=== PATIENT | female | born 1995 | race African-American/Black ===

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

== ENCOUNTER 2017-09-02 12:12 | Emergency (ER) | payer OTHER ==
[2017-09-02 13:04] LABS: BASOPHILS # (AUTO) 0.1 10^3/uL (0.0-0.1); BASOPHILS % (AUTO) 0.5 %; EOSINOPHILS # (AUTO) 0.2 10^3/uL (0.0-0.7); EOSINOPHILS % (AUTO) 1.5 %; HGB - HEMOGLOBIN 11.4 g/dL (12.0-16.0); LYMPHOCYTES # (AUTO) 2.4 10^3/uL (1.5-3.5); LYMPHOCYTES % (AUTO) 17.8 %; MEAN CORPUSCULAR HGB CONC 32.2 g/dL (32.0-36.0); MEAN CORPUSCULAR VOLUME 74.6 fL (81.0-99.0); MEAN PLATELET VOLUME 7.7 fL (7.9-10.8); MONOCYTES # (AUTO) 0.8 10^3/uL (0.0-1.0); MONOCYTES % (AUTO) 6.4 %; NEUTROPHILS # (AUTO) 9.8 10^3/uL (1.5-6.6); NEUTROPHILS % (AUTO) 73.8 %; PLT - PLATELET COUNT 230 10^3/uL (130-450); RED BLOOD COUNT 4.75 10^6/uL (4.20-5.40); RED CELL DISTRIBUTION WIDTH 14.8 % (12.0-15.0); WHITE BLOOD COUNT 13.2 x10^3/uL (4.8-10.8)
[2017-09-02 13:04] LABS: BILIRUBIN,URINE NEGATIVE (NEGATIVE); GLUCOSE, URINE (UA) NEGATIVE (NEGATIVE); KETONES,URINE (UA) NEGATIVE (NEGATIVE); LEUKOCYTE ESTERASE, URINE NEGATIVE (NEGATIVE); NITRITE,URINE NEGATIVE (NEGATIVE); OCCULT BLOOD,URINE NEGATIVE (NEGATIVE); PH,URINE 6.5 PH (5.0-7.5); PROTEIN,URINE NEGATIVE (NEGATIVE); UROBILINOGEN,URINE 0.2 (NORMAL) E.U./dL (NORMAL)
[2017-09-02 13:05] LABS: CLARITY,URINE CLEAR (CLEAR)
[2017-09-02 13:19] LABS: ALBUMIN 3.9 g/dL (3.2-5.5); ALBUMIN/GLOBULIN RATIO 1.2 (1.0-2.2); BILIRUBIN,TOTAL 0.4 mg/dL (0.2-1.0); CALCIUM 9.1 mg/dL (8.5-10.3); CREATININE 0.6 mg/dL (0.4-1.0); TOTAL PROTEIN 7.1 g/dL (6.7-8.2)
--- NOTE | 2017-09-02 13:53 | ED Physician Documentation ---
PD HPI FEMALE - Stated complaint Stated Complaint: ABD CRAMPING,10 WKS PREG - Chief complaint Chief Complaint: Abd Pain - History obtained from History obtained from: Patient - History of Present Illness Timing - onset: How many weeks ago (4) Timing - duration: Weeks (4) Timing - details: Gradual onset, Still present Associated symptoms: Pelvic pain. 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 She equates it to menstrual cramping and she knows that she is maybe as far long as 10 weeks . She has not had an ultrasound with this . She has not had any vaginal bleeding associated with this. She denies urinary symptoms. Review of Systems Constitutional: denies: Fever Eyes: denies: Decreased vision Ears: denies: Ear pain Nose: denies: Congestion Throat: denies: Sore throat Cardiac: denies: Chest pain / pressure, Palpitations Respiratory: denies: Dyspnea, Cough GI: reports: Abdominal Pain, Nausea. denies: Vomiting, Constipation, Diarrhea : denies: Dysuria, Frequency Skin: denies: Rash Musculoskeletal: denies: Neck pain, Back pain, Extremity pain Neurologic: denies: Generalized weakness, Focal weakness, Numbness PD PAST MEDICAL HISTORY - Past Medical History Cardiovascular: None Respiratory: None Neuro: None Endocrine/Autoimmune: None GI: None : None HEENT: None Psych: None Musculoskeletal: None Derm: None - Past Surgical History Past Surgical History: Yes General: Appendectomy - Present Medications Home Medications: Ambulatory Orders Medication Instructions Recorded Confirmed No Known Home Medications [No 12/29/16 12/29/16 Known Home Medications] - Allergies Allergies/Adverse Reactions: Allergies Allergy/AdvReac Type Severity Reaction Status Date / Time acetaminophen Allergy Unknown Anaphylaxis Verified 12/30/16 11:09 - Social History Does the pt smoke?: No Smoking Status: Former smoker Does the pt drink ETOH?: No Does the pt have substance abuse?: No - Immunizations Immunizations are current?: Yes PD ED PE NORMAL - Vitals Vital signs reviewed: Yes (Tachycardic and hypertensive) - General General: Alert and oriented X 3, No acute distress, Well developed/nourished - HEENT HEENT: Atraumatic, PERRL, EOMI - Respiratory Respiratory: No respiratory distress - Abdomen Abdomen: Soft, Non tender - Derm Derm: Normal color, Warm and dry, No rash - Extremities Extremities: No deformity, No edema - Neuro Neuro: No motor deficit, No sensory deficit Eye Opening: Spontaneous Motor: Obeys Commands Verbal: Oriented GCS Score: 15 - Psych Psych: Normal mood, Normal affect Results - Vitals Vitals: Vital Signs - 24 hr 09/02/17 09/02/17 12:18 14:32 Temperature 36.6 C Heart Rate 112 H 90 Respiratory 18 12 Rate Blood Pressure 141/82 H 129/78 O2 Saturation 100 100 Oxygen O2 Source Room air - Labs Labs: Laboratory Tests 09/02/17 09/02/17 09/02/17 12:15 13:00 13:00 WBC 13.2 H RBC 4.75 Hgb 11.4 L Hct 35.4 L MCV 74.6 L MCH 24.0 L MCHC 32.2 RDW 14.8 Plt Count 230 MPV 7.7 L Neut # 9.8 H Lymph # 2.4 [place] # 0.8 Eos # 0.2 Baso # 0.1 Absolute Nucleated RBC 0.00 Nucleated RBC % 0.0 Sodium 134 L Potassium 4.1 Chloride 104 Carbon Dioxide 25 Anion Gap 5.0 L BUN 17 Creatinine 0.6 Estimated GFR (MDRD) 154 Glucose 109 H Calcium 9.1 Total Bilirubin 0.4 AST 24 ALT 19 Alkaline Phosphatase 44 Total Protein 7.1 Albumin 3.9 Globulin 3.2 Albumin/Globulin Ratio 1.2 Lipase 19 L HCG, Quant Urine Color YELLOW Urine Clarity CLEAR Urine pH 6.5 Ur Specific [place] 1.020 Urine Protein NEGATIVE Urine Glucose (UA) NEGATIVE Urine Ketones NEGATIVE Urine Occult Blood NEGATIVE Urine Nitrite NEGATIVE Urine Bilirubin NEGATIVE Urine Urobilinogen 0.2 (NORMAL) Ur Leukocyte Esterase NEGATIVE Ur Microscopic Review NOT INDICATED Urine Culture Comments NOT INDICATED 09/02/17 13:00 WBC RBC Hgb Hct MCV MCH MCHC RDW Plt Count MPV Neut # Lymph # [place] # Eos # Baso # Absolute Nucleated RBC Nucleated RBC % Sodium Potassium Chloride Carbon Dioxide Anion Gap BUN Creatinine Estimated GFR (MDRD) Glucose Calcium Total Bilirubin AST ALT Alkaline Phosphatase Total Protein Albumin Globulin Albumin/Globulin Ratio Lipase HCG, Quant 555181.00 Urine Color Urine Clarity Urine pH Ur Specific [place] Urine Protein Urine Glucose (UA) Urine Ketones Urine Occult Blood Urine Nitrite Urine Bilirubin Urine Urobilinogen Ur Leukocyte Esterase Ur Microscopic Review Urine Culture Comments - Rads (name of study) pelvic ultrasound Radiology: Prelim report reviewed (Impression: Single viable intrauterine 9 weeks 2 days by size. No lucy-gestational hemorrhage.), EMP read indepedently, See rad report Procedures - Bedside sono Bedside sono by EMP: With use of bedside ultrasound the pelvis is imaged and there does appear to be a 8 week fetus that appears viable. No free fluid is appreciated. PD MEDICAL DECISION MAKING - ED course Complexity details: reviewed results, re-evaluated patient, considered differential, d/w patient ED course: 22-year-old female with pelvic discomfort is 9 weeks by ultrasound and appears to have a viable . There is no evidence of UTI Departure - Departure Disposition: 01 Home, Self Care Clinical Impression: Qualifiers: Weeks of gestation: 9 weeks Qualified Code(s): Z3A.09 - 9 weeks gestation of Condition: Stable Instructions: ED Preg Established Normal Sxs, ED Care Follow-Up: [facility] [Provider Group]
[2017-09-02 14:33] VITALS: BP 129/78
--- NOTE | 2017-09-02 16:08 | Ultrasound Report ---
FIRST TRIMESTER OB ULTRASOUND: 09/02/2017 CLINICAL INDICATION: Cramping. TECHNIQUE: Transabdominal pelvic ultrasound performed for global evaluation. Real-time scanning performed and static images obtained. LAST MENSTRUAL PERIOD unsure CLINICAL AGE -- US AGE 9 weeks 2 days CRL 25.8 mm HEART RATE 166 bpm YOLK SAC 6.3 mm US EDC 04/05/2018 CERVICAL LENGTH Closed UTERUS Anteverted. FINDINGS: There is a single viable intrauterine gestation. heart rate is 166 BPM. By crown rump length, the fetus dates 9 weeks 2 days. No perigestational fluid collection is seen. The gestational sac is regular. The ovaries are unremarkable. No free fluid is seen. IMPRESSION: SINGLE VIABLE INTRAUTERINE GESTATION, MEASURING 9 WEEKS 2 DAYS BY CROWN RUMP LENGTH. NO PERIGESTATIONAL HEMORRHAGE. TD: 09/02/2017 15:30 MTDD
== END 2017-09-02 15:25 | disposition home or self-care (01) ==
LOC: ED 12:12
DX: O26.891 Other specified pregnancy related conditions, first trimester (principal); R10.30 Lower abdominal pain, unspecified; Z3A.08 8 weeks gestation of pregnancy
CPT/HCPCS: 36415; 76801; 80053; 81001; 81003; 83690; 84702; 85025; 87086; 99283

== ENCOUNTER 2017-09-08 19:14 | Emergency (ER) | payer OTHER ==
[2017-09-08] MEDS ORDERED: ALBUTEROL NEB 2.5 MG/3 ML INH STA (19:39)
--- NOTE | 2017-09-08 19:42 | ED Physician Documentation ---
History of Present Illness - Stated complaint Stated Complaint: FEMALE /11 WK OB - Chief complaint Chief Complaint: Abd Pain - History obtained from History obtained from: Patient - History of Present Illness Timing: Today Pain level max: 3 Pain level now: 3 Improved by: nothing Worsened by: nothing - Additonal information Additional information: Patient is a 22-year-old female, 1 para 0 approximately 10 weeks who presents to the emergency department with vaginal spotting today. Also has lower abdominal cramping. No urinary symptoms. She also awoke from a nap today with nasal congestion and chest tightness. Mild cough. No vomiting. No vaginal discharge or itching. Review of Systems Constitutional: denies: Fever, Chills Nose: reports: Rhinorrhea / runny nose, Congestion Throat: denies: Sore throat Cardiac: denies: Chest pain / pressure Respiratory: reports: Dyspnea. denies: Cough, Hemoptysis, Wheezing GI: denies: Nausea, Vomiting, Diarrhea : reports: Now EGA. denies: Dysuria, Frequency, Hesitancy, Discharge Skin: denies: Rash Musculoskeletal: denies: Neck pain, Back pain Neurologic: denies: Headache PD PAST MEDICAL HISTORY - Past Medical History Cardiovascular: None Respiratory: None Neuro: None Endocrine/Autoimmune: None GI: None : None HEENT: None Psych: None Musculoskeletal: None Derm: None - Past Surgical History Past Surgical History: Yes General: Appendectomy - Present Medications Home Medications: Ambulatory Orders Medication Instructions Recorded Confirmed Albuterol Sulf [Ventolin Hfa 1 - 2 puffs INH Q4HR PRN #1 inhaler 09/08/17 Inhaler] - Allergies Allergies/Adverse Reactions: Allergies Allergy/AdvReac Type Severity Reaction Status Date / Time acetaminophen Allergy Unknown Anaphylaxis Verified 09/08/17 19:22 - Social History Does the pt smoke?: No Smoking Status: Never smoker Does the pt drink ETOH?: No Does the pt have substance abuse?: No - Immunizations Immunizations are current?: Yes PD ED PE NORMAL - Vitals Vital signs reviewed: Yes - General General: Alert and oriented X 3, No acute distress - HEENT HEENT: Ears normal, Moist mucous membranes, Pharynx benign - Neck Neck: Supple, no meningeal sign - Cardiac Cardiac: RRR, Strong equal pulses - Respiratory Respiratory: No respiratory distress, Other (Diminished breath sounds bilaterally) - Abdomen Abdomen: Soft, Non tender, Non distended - Derm Derm: Warm and dry, No rash - Extremities Extremities: No edema - Neuro Neuro: Alert and oriented X 3 - Psych Psych: Normal mood, Normal affect Results - Vitals Vitals: Vital Signs - 24 hr 09/08/17 09/08/17 19:17 19:50 Temperature 37.2 C Heart Rate 83 80 Respiratory 18 16 Rate Blood Pressure 123/64 O2 Saturation 99 Oxygen O2 Source Room air - EKG (time done) 1935 Rate: Rate (enter#) (83) Rhythm: NSR [place]: Normal Intervals: Normal [place] QRS: Normal Ischemia: Normal ST segments Computer interpretation: Agree with computer - Labs Labs: Laboratory Tests 09/08/17 09/08/17 09/08/17 19:30 19:30 19:30 WBC 13.9 H RBC 5.29 Hgb 12.3 Hct 38.9 MCV 73.5 L MCH 23.2 L MCHC 31.5 L RDW 14.6 Plt Count 246 MPV 8.1 Neut # 10.8 H Lymph # 2.1 [place] # 0.9 Eos # 0.1 Baso # 0.0 Absolute Nucleated RBC 0.01 Nucleated RBC % 0.0 Sodium 134 L Potassium 3.5 Chloride 103 Carbon Dioxide 24 Anion Gap 7.0 BUN 15 Creatinine 0.5 Estimated GFR (MDRD) 191 Glucose 107 H Calcium 9.5 Total Bilirubin 0.4 AST 35 ALT 28 Alkaline Phosphatase 45 Total Protein 7.6 Albumin 3.9 Globulin 3.7 Albumin/Globulin Ratio 1.1 Lipase 21 L HCG, Quant 238910.00 Urine Color Urine Clarity Urine pH Ur Specific [place] Urine Protein Urine Glucose (UA) Urine Ketones Urine Occult Blood Urine Nitrite Urine Bilirubin Urine Urobilinogen Ur Leukocyte Esterase Ur Microscopic Review Urine Culture Comments 09/08/17 20:18 WBC RBC Hgb Hct MCV MCH MCHC RDW Plt Count MPV Neut # Lymph # [place] # Eos # Baso # Absolute Nucleated RBC Nucleated RBC % Sodium Potassium Chloride Carbon Dioxide Anion Gap BUN Creatinine Estimated GFR (MDRD) Glucose Calcium Total Bilirubin AST ALT Alkaline Phosphatase Total Protein Albumin Globulin Albumin/Globulin Ratio Lipase HCG, Quant Urine Color YELLOW Urine Clarity CLEAR Urine pH 7.0 Ur Specific [place] 1.020 Urine Protein NEGATIVE Urine Glucose (UA) NEGATIVE Urine Ketones TRACE Urine Occult Blood NEGATIVE Urine Nitrite NEGATIVE Urine Bilirubin NEGATIVE Urine Urobilinogen 0.2 (NORMAL) Ur Leukocyte Esterase NEGATIVE Ur Microscopic Review NOT INDICATED Urine Culture Comments NOT INDICATED PD MEDICAL DECISION MAKING - ED course Complexity details: reviewed old records, reviewed results, re-evaluated patient , considered differential, d/w patient, d/w family ED course: Patient is a 22-year-old female, 1 para 0 approximately 10 weeks with a heart rate of 160 beats per minutes with good movement and an intrauterine on bedside ultrasound. She feels much better after nebulizer treatment. Chest tightness resolved. Breathing easier. Appears to have a viral upper respiratory infection. No evidence of pneumonia. Declines a vaginal exam at this time. Will follow up with her doctor for this. Patient counseled regarding signs and symptoms for which I believe and urgent re-evaluation would be necessary. Patient with good understanding of and agreement to plan and is comfortable going home at this time This document was made in part using voice recognition software. While efforts are made to proofread this document, sound alike and grammatical errors may occur. Blood type is A positive Departure - Departure Disposition: 01 Home, Self Care Clinical Impression: Viral URI, Threatened affecting intrauterine Qualifiers: Weeks of gestation: 10 weeks Qualified Code(s): Z3A.10 - 10 weeks gestation of Condition: Good Instructions: ED Miscarriage Poss, ED Viral Syndrome Follow-Up: your,doctor in 3 days [Other] [facility] [Provider Group] Prescriptions: Albuterol Sulf [Ventolin Hfa Inhaler] 1 - 2 puffs INH Q4HR PRN #1 inhaler PRN Reason: Shortness Of Air/Wheezing Comments: You can use Motrin as needed at home for pain. Return if you worsen. You need to follow-up closely with your doctor for repeat evaluation of your . Your HCG is [id number] tonight
[2017-09-08 19:45] LABS: BASOPHILS % (AUTO) 0.3 %; EOSINOPHILS # (AUTO) 0.1 10^3/uL (0.0-0.7); EOSINOPHILS % (AUTO) 1.1 %; HGB - HEMOGLOBIN 12.3 g/dL (12.0-16.0); LYMPHOCYTES # (AUTO) 2.1 10^3/uL (1.5-3.5); LYMPHOCYTES % (AUTO) 14.9 %; MEAN CORPUSCULAR HEMOGLOBIN 23.2 pg (27.0-31.0); MEAN CORPUSCULAR HGB CONC 31.5 g/dL (32.0-36.0); MEAN CORPUSCULAR VOLUME 73.5 fL (81.0-99.0); MEAN PLATELET VOLUME 8.1 fL (7.9-10.8); MONOCYTES # (AUTO) 0.9 10^3/uL (0.0-1.0); MONOCYTES % (AUTO) 6.2 %; NEUTROPHILS # (AUTO) 10.8 10^3/uL (1.5-6.6); NEUTROPHILS % (AUTO) 77.5 %; PLT - PLATELET COUNT 246 10^3/uL (130-450); RED BLOOD COUNT 5.29 10^6/uL (4.20-5.40); RED CELL DISTRIBUTION WIDTH 14.6 % (12.0-15.0); WHITE BLOOD COUNT 13.9 x10^3/uL (4.8-10.8)
[2017-09-08 19:56] LABS: ALBUMIN 3.9 g/dL (3.2-5.5); ALBUMIN/GLOBULIN RATIO 1.1 (1.0-2.2); BILIRUBIN,TOTAL 0.4 mg/dL (0.2-1.0); CALCIUM 9.5 mg/dL (8.5-10.3); CREATININE 0.5 mg/dL (0.4-1.0); TOTAL PROTEIN 7.6 g/dL (6.7-8.2)
[2017-09-08 20:22] LABS: BILIRUBIN,URINE NEGATIVE (NEGATIVE); GLUCOSE, URINE (UA) NEGATIVE (NEGATIVE); KETONES,URINE (UA) TRACE mg/dL (NEGATIVE); LEUKOCYTE ESTERASE, URINE NEGATIVE (NEGATIVE); NITRITE,URINE NEGATIVE (NEGATIVE); OCCULT BLOOD,URINE NEGATIVE (NEGATIVE); PROTEIN,URINE NEGATIVE (NEGATIVE); UROBILINOGEN,URINE 0.2 (NORMAL) E.U./dL (NORMAL)
[2017-09-08 20:23] LABS: CLARITY,URINE CLEAR (CLEAR)
[2017-09-08] MEDS ORDERED: IBUPROFEN 400 MG TABLET PO STA (20:34)
[2017-09-08 20:45] VITALS: BP 121/70
== END 2017-09-08 20:49 | disposition home or self-care (01) ==
LOC: ED 19:14
DX: O20.0 Threatened abortion (principal); O99.511 Diseases of the respiratory system complicating pregnancy, first trimester; J06.9 Acute upper respiratory infection, unspecified; B97.89 Other viral agents as the cause of diseases classified elsewhere; Z3A.10 10 weeks gestation of pregnancy
CPT/HCPCS: 36415; 80053; 81003; 83690; 84702; 85025; 93005; 94640; 99284; A9270; J7613; 81001; 87086

== ENCOUNTER 2017-09-19 17:58 | Emergency (ER) | payer OTHER ==
[2017-09-19] MEDS ORDERED: ONDANSETRON 4 MG/2 ML VIAL IVP STA (19:17)
[2017-09-19] MEDS ORDERED: SODIUM CHLORIDE 0.9% 1,000 ML IV ONE (19:17)
--- NOTE | 2017-09-19 19:18 | ED Physician Documentation ---
PD HPI ABD PAIN - Stated complaint Stated Complaint: VOMITING/12 WK OB - Chief complaint Chief Complaint: Abd Pain - History obtained from History obtained from: Patient - History of Present Illness Timing - onset: Other (22-year-old with a history of laparoscopic appendectomy. She is a G1 at 12 weeks gestation with lower abdominal pain and vomiting since yesterday without fevers, diarrhea, sick contacts.) Review of Systems Constitutional: denies: Fever, Chills GI: reports: Abdominal Pain, Nausea, Vomiting. denies: Constipation, Diarrhea : denies: Vaginal bleeding PD PAST MEDICAL HISTORY - Past Medical History Cardiovascular: None Respiratory: None Neuro: None Endocrine/Autoimmune: None GI: None : None HEENT: None Psych: None Musculoskeletal: None Derm: None - Past Surgical History Past Surgical History: Yes General: Appendectomy - Present Medications Home Medications: Ambulatory Orders Medication Instructions Recorded Confirmed Albuterol Sulf [Ventolin Hfa 1 - 2 puffs INH Q4HR PRN #1 inhaler 09/08/17 Inhaler] Metoclopramide [Reglan] 10 mg PO Q6H PRN #20 tablet 09/19/17 Pnv95/Ferrous Fumarate/FA 09/19/17 [ Tablet] - Allergies Allergies/Adverse Reactions: Allergies Allergy/AdvReac Type Severity Reaction Status Date / Time acetaminophen Allergy Unknown Anaphylaxis Verified 09/08/17 19:22 - Social History Does the pt smoke?: No Smoking Status: Never smoker Does the pt drink ETOH?: No Does the pt have substance abuse?: No - Immunizations Immunizations are current?: Yes PD ED PE NORMAL - Vitals Vital signs reviewed: Yes - General General: Alert and oriented X 3, No acute distress - Abdomen Abdomen: Normal bowel sounds, Soft, Non tender - Female Female : Other (Bedside ultrasound demonstrates single live intrauterine with a heart rate of 160) - Neuro Neuro: Alert and oriented X 3, Normal speech Results - Vitals Vitals: Vital Signs - 24 hr 09/19/17 09/19/17 18:33 20:29 Temperature 37.0 C 36.9 C Heart Rate 91 76 Respiratory 17 16 Rate Blood Pressure 118/65 102/80 O2 Saturation 98 100 Oxygen O2 Source Room air - Labs Labs: Laboratory Tests 09/19/17 09/19/17 09/19/17 19:30 19:30 20:04 WBC 12.9 H RBC 4.93 Hgb 11.2 L Hct 36.0 L MCV 73.0 L MCH 22.8 L MCHC 31.2 L RDW 14.7 Plt Count 224 MPV 8.1 Neut # 9.6 H Lymph # 2.4 [place] # 0.8 Eos # 0.1 Baso # 0.1 Absolute Nucleated RBC 0.00 Nucleated RBC % 0.0 Sodium 133 L Potassium 3.7 Chloride 106 Carbon Dioxide 22 Anion Gap 5.0 L BUN 13 Creatinine 0.5 Estimated GFR (MDRD) 191 Glucose 98 Calcium 8.2 L Total Bilirubin 0.3 AST 23 ALT 22 Alkaline Phosphatase 37 L Total Protein 6.1 L Albumin 3.4 Globulin 2.7 Albumin/Globulin Ratio 1.3 Lipase 15 L Urine Color YELLOW Urine Clarity CLEAR Urine pH 7.5 Ur Specific [place] 1.015 Urine Protein NEGATIVE Urine Glucose (UA) NEGATIVE Urine Ketones TRACE Urine Occult Blood NEGATIVE Urine Nitrite NEGATIVE Urine Bilirubin NEGATIVE Urine Urobilinogen 0.2 (NORMAL) Ur Leukocyte Esterase NEGATIVE Ur Microscopic Review NOT INDICATED Urine Culture Comments NOT INDICATED - Rads (name of study) Bedside sono Radiology: EMP read indepedently (FHT 160, IUP) PD MEDICAL DECISION MAKING - ED course ED course: 22-year-old woman with presents with lower abdominal pain. Of note she is status post remote appendectomy. She was feeling better after antiemetics and IV fluids. She was not medicated for pain because she is allergic to Tylenol and she did not feel like she would need anything narcotic. Departure - Departure Disposition: 01 Home, Self Care Clinical Impression: Abdominal pain Qualifiers: Abdominal location: lower abdomen, unspecified Qualified Code(s): R10.30 - Lower abdominal pain, unspecified Qualifiers: Weeks of gestation: 12 weeks Qualified Code(s): Z3A.12 - 12 weeks gestation of Condition: Good Record reviewed to determine appropriate education?: Yes Instructions: ED Preg Established Normal Sxs Prescriptions: Metoclopramide [Reglan] 10 mg PO Q6H PRN #20 tablet PRN Reason: Nausea / Vomiting Comments: Call your doctor to arrange a follow-up appointment, make the next available appointment. In the interim, return anytime if worse or if new symptoms develop. Discharge Date/Time: 09/19/17 20:35
[2017-09-19 19:42] LABS: BASOPHILS # (AUTO) 0.1 10^3/uL (0.0-0.1); BASOPHILS % (AUTO) 0.5 %; EOSINOPHILS # (AUTO) 0.1 10^3/uL (0.0-0.7); EOSINOPHILS % (AUTO) 0.7 %; HGB - HEMOGLOBIN 11.2 g/dL (12.0-16.0); LYMPHOCYTES # (AUTO) 2.4 10^3/uL (1.5-3.5); LYMPHOCYTES % (AUTO) 18.3 %; MEAN CORPUSCULAR HEMOGLOBIN 22.8 pg (27.0-31.0); MEAN CORPUSCULAR HGB CONC 31.2 g/dL (32.0-36.0); MEAN PLATELET VOLUME 8.1 fL (7.9-10.8); MONOCYTES # (AUTO) 0.8 10^3/uL (0.0-1.0); MONOCYTES % (AUTO) 6.2 %; NEUTROPHILS # (AUTO) 9.6 10^3/uL (1.5-6.6); NEUTROPHILS % (AUTO) 74.3 %; PLT - PLATELET COUNT 224 10^3/uL (130-450); RED BLOOD COUNT 4.93 10^6/uL (4.20-5.40); RED CELL DISTRIBUTION WIDTH 14.7 % (12.0-15.0); WHITE BLOOD COUNT 12.9 x10^3/uL (4.8-10.8)
[2017-09-19 19:51] LABS: BILIRUBIN,URINE NEGATIVE (NEGATIVE); GLUCOSE, URINE (UA) NEGATIVE (NEGATIVE); KETONES,URINE (UA) TRACE mg/dL (NEGATIVE); LEUKOCYTE ESTERASE, URINE NEGATIVE (NEGATIVE); NITRITE,URINE NEGATIVE (NEGATIVE); OCCULT BLOOD,URINE NEGATIVE (NEGATIVE); PH,URINE 7.5 PH (5.0-7.5); PROTEIN,URINE NEGATIVE (NEGATIVE); UROBILINOGEN,URINE 0.2 (NORMAL) E.U./dL (NORMAL)
[2017-09-19 19:54] LABS: CLARITY,URINE CLEAR (CLEAR)
[2017-09-19 20:23] LABS: ALBUMIN 3.4 g/dL (3.2-5.5); ALBUMIN/GLOBULIN RATIO 1.3 (1.0-2.2); BILIRUBIN,TOTAL 0.3 mg/dL (0.2-1.0); CALCIUM 8.2 mg/dL (8.5-10.3); CREATININE 0.5 mg/dL (0.4-1.0); TOTAL PROTEIN 6.1 g/dL (6.7-8.2)
[2017-09-19 20:30] VITALS: BP 102/80
== END 2017-09-19 20:35 | disposition home or self-care (01) ==
LOC: ED 17:58
DX: O26.891 Other specified pregnancy related conditions, first trimester (principal); R10.30 Lower abdominal pain, unspecified; Z3A.12 12 weeks gestation of pregnancy
CPT/HCPCS: 36415; 80053; 81001; 81003; 83690; 85025; 87086; 96374; 99283

== ENCOUNTER 2017-09-20 07:35 | Outpatient (CLI) | payer OTHER | END 2017-09-20 07:36 | disposition critical access hospital (66) | LOC: EMS 07:35 | PROVIDERS: ATTEND Surgery | DX: O99.89 Other specified diseases and conditions complicating pregnancy, childbirth and the puerperium (principal); R55 Syncope and collapse; R42 Dizziness and giddiness; R53.83 Other fatigue; R11.10 Vomiting, unspecified | CPT/HCPCS: A0425; A0427 ==

== ENCOUNTER 2017-09-20 08:11 | Observation (INO) | payer OTHER ==
[2017-09-20] MEDS ORDERED: SODIUM CHLORIDE 0.9% 2,000 ML IV ONE (08:21)
--- NOTE | 2017-09-20 08:31 | ED Physician Documentation ---
History of Present Illness - Stated complaint Stated Complaint: SYNCOPE - Additonal information Additional information: hx from pt 22 f 12 weeks s.p appy OB at [facility] known IUP by radiology terese Aug 2017 seen yesterday for NV lower abd pain and syncope beside terese showed live IUP given IVF dc with rx for reglan which she has been unable to fill because pharmacy was closed returns to ED because she has continued to have intractable NV and had 4 episodes of syncope states no CP or palp before syncope states hit her head once but not hard - no injury suffered witnessed by a friend who says she had a pulse Review of Systems Constitutional: denies: Fever Cardiac: denies: Chest pain / pressure Respiratory: denies: Dyspnea GI: reports: Abdominal Pain (lower). denies: Nausea, Vomiting : reports: Now EGA. denies: Vaginal bleeding Neurologic: reports: Syncope Endocrine: denies: Easy bruising / bleeding Immunocompromised: denies: Immunocompromised PD PAST MEDICAL HISTORY - Past Medical History Cardiovascular: None Respiratory: None Neuro: None Endocrine/Autoimmune: None GI: None : None HEENT: None Psych: None Musculoskeletal: None Derm: None - Past Surgical History Past Surgical History: Yes General: Appendectomy - Present Medications Home Medications: Ambulatory Orders Medication Instructions Recorded Confirmed Albuterol Sulf [Ventolin Hfa 1 - 2 puffs INH Q4HR PRN #1 inhaler 09/08/17 Inhaler] Vitamin [Trinatal Rx 1] 1 each PO DAILY 09/20/17 09/20/17 - Allergies Allergies/Adverse Reactions: Allergies Allergy/AdvReac Type Severity Reaction Status Date / Time acetaminophen Allergy Severe Anaphylaxis Verified 09/20/17 14:43 - Social History Does the pt smoke?: No Smoking Status: Never smoker Does the pt drink ETOH?: No Does the pt have substance abuse?: No - Immunizations Immunizations are current?: Yes PD ED PE NORMAL - Vitals Vital signs reviewed: Yes - General General: Alert and oriented X 3 - HEENT HEENT: Atraumatic, PERRL - Neck Neck: Supple, no meningeal sign, No bony TTP - Cardiac Cardiac: RRR - Respiratory Respiratory: No respiratory distress, Clear bilaterally - Abdomen Abdomen: Soft, Other (mod TTP across lower abd without rebound or guarding) - Derm Derm: Normal color - Neuro Neuro: Alert and oriented X 3, No motor deficit Results - Vitals Vitals: Vital Signs - 24 hr 09/20/17 09/20/17 09/20/17 08:26 09:22 09:37 Temperature 36.5 C 36.6 C Heart Rate 75 78 96 Respiratory 19 18 24 Rate Blood Pressure 112/67 111/70 O2 Saturation 99 100 100 Oxygen O2 Source Room air - EKG (time done) 0831 Rate: Rate (enter#) Rhythm: NSR Heaters: Normal Intervals: Normal AK Ischemia: Normal ST segments Other comments: Other comments (no delta wave) - Labs Labs: Laboratory Tests 09/20/17 09/20/17 09/20/17 08:31 08:31 08:46 WBC 10.1 RBC 4.43 Hgb 10.6 L Hct 32.9 L MCV 74.3 L MCH 23.8 L MCHC 32.1 RDW 14.7 Plt Count 202 MPV 7.9 Neut # 7.7 H Lymph # 1.7 Gillespie # 0.7 Eos # 0.0 Baso # 0.0 Absolute Nucleated RBC 0.00 Nucleated RBC % 0.0 Sodium 134 L Potassium 3.7 Chloride 106 Carbon Dioxide 21 Anion Gap 7.0 BUN 12 Creatinine 0.5 Estimated GFR (MDRD) 191 Glucose 84 Calcium 8.5 Phosphorus Magnesium Iron TIBC % Saturation Transferrin Total Bilirubin Direct Bilirubin AST ALT Alkaline Phosphatase Total Protein Albumin Globulin Lipase Urine Color YELLOW Urine Clarity CLEAR Urine pH 7.5 Ur Specific [place] 1.020 Urine Protein NEGATIVE Urine Glucose (UA) NEGATIVE Urine Ketones NEGATIVE Urine Occult Blood NEGATIVE Urine Nitrite NEGATIVE Urine Bilirubin NEGATIVE Urine Urobilinogen 0.2 (NORMAL) Ur Leukocyte Esterase NEGATIVE Ur Microscopic Review NOT INDICATED Urine Culture Comments NOT INDICATED 09/20/17 09/20/17 12:00 12:00 WBC RBC Hgb Hct MCV MCH MCHC RDW Plt Count MPV Neut # Lymph # Gillespie # Eos # Baso # Absolute Nucleated RBC Nucleated RBC % Sodium Potassium Chloride Carbon Dioxide Anion Gap BUN Creatinine Estimated GFR (MDRD) Glucose Calcium Phosphorus 3.5 Magnesium 1.7 Iron 95 TIBC 253 % Saturation 37 Transferrin 181 L Total Bilirubin 0.3 Direct Bilirubin < 0.1 L AST 21 ALT 19 Alkaline Phosphatase 30 L Total Protein 6.2 L Albumin 3.3 Globulin 2.9 Lipase 14 L Urine Color Urine Clarity Urine pH Ur Specific [place] Urine Protein Urine Glucose (UA) Urine Ketones Urine Occult Blood Urine Nitrite Urine Bilirubin Urine Urobilinogen Ur Leukocyte Esterase Ur Microscopic Review Urine Culture Comments PD MEDICAL DECISION MAKING - ED course ED course: live IUP, no FF, cyst torsion rupture etc pt not better after IVF and reglan still feels weak and nauseated no further syncope do not think dehydration explains this since urine not too concentrated and no ketones mild anemia also would not explain early in preg so myocarditis etc unlikely but feel 4 episodes of syncope merits tele and an echo will d/w hospitalist to keep pt for tele obs paged hospitalist 1310, spoke to hospitalist 1320 also has some lower abd pain - s/po appy, neg sono, neg urine - do not see any baseline pelvic cx in EMR, will do pelvic if can move pt to appropriate room or else add on to urine - though doubt that would cause syncope Departure - Departure Disposition: ED Place in Observation Clinical Impression: Syncope Qualifiers: Syncope type: unspecified Qualified Code(s): R55 - Syncope and collapse Qualifiers: Weeks of gestation: 12 weeks Qualified Code(s): Z3A.12 - 12 weeks gestation of Condition: Fair Discharge Date/Time: 09/20/17 15:05
[2017-09-20 08:42] LABS: BASOPHILS % (AUTO) 0.3 %; EOSINOPHILS % (AUTO) 0.5 %; HGB - HEMOGLOBIN 10.6 g/dL (12.0-16.0); LYMPHOCYTES # (AUTO) 1.7 10^3/uL (1.5-3.5); LYMPHOCYTES % (AUTO) 16.8 %; MEAN CORPUSCULAR HEMOGLOBIN 23.8 pg (27.0-31.0); MEAN CORPUSCULAR HGB CONC 32.1 g/dL (32.0-36.0); MEAN CORPUSCULAR VOLUME 74.3 fL (81.0-99.0); MEAN PLATELET VOLUME 7.9 fL (7.9-10.8); MONOCYTES # (AUTO) 0.7 10^3/uL (0.0-1.0); MONOCYTES % (AUTO) 6.8 %; NEUTROPHILS # (AUTO) 7.7 10^3/uL (1.5-6.6); NEUTROPHILS % (AUTO) 75.6 %; PLT - PLATELET COUNT 202 10^3/uL (130-450); RED BLOOD COUNT 4.43 10^6/uL (4.20-5.40); RED CELL DISTRIBUTION WIDTH 14.7 % (12.0-15.0); WHITE BLOOD COUNT 10.1 x10^3/uL (4.8-10.8)
[2017-09-20 08:43] LABS: CALCIUM 8.5 mg/dL (8.5-10.3); CREATININE 0.5 mg/dL (0.4-1.0)
[2017-09-20 09:06] LABS: BILIRUBIN,URINE NEGATIVE (NEGATIVE); GLUCOSE, URINE (UA) NEGATIVE (NEGATIVE); KETONES,URINE (UA) NEGATIVE (NEGATIVE); LEUKOCYTE ESTERASE, URINE NEGATIVE (NEGATIVE); NITRITE,URINE NEGATIVE (NEGATIVE); OCCULT BLOOD,URINE NEGATIVE (NEGATIVE); PH,URINE 7.5 PH (5.0-7.5); PROTEIN,URINE NEGATIVE (NEGATIVE); UROBILINOGEN,URINE 0.2 (NORMAL) E.U./dL (NORMAL)
[2017-09-20 09:11] LABS: CLARITY,URINE CLEAR (CLEAR)
[2017-09-20] MEDS ORDERED: oxyCODONE 5 MG TABLET PO STA (09:49)
[2017-09-20] MEDS ORDERED: METOCLOPRAMIDE 10 MG/2 ML VIAL IVP STA (12:12)
--- NOTE | 2017-09-20 12:17 | Ultrasound Report ---
REVISED: REPORT ORIGINALLY SIGNED ON 09/20/2017@1443; ORDERS LINKED ON 2017 jll FIRST TRIMESTER OB ULTRASOUND WITH TRANSVAGINAL AND DOPPLER: 09/20/2017 INDICATION: Severe left-sided pain, syncope, question left ovarian torsion. TECHNIQUE: Transabdominal pelvic ultrasound performed for global evaluation. Transvaginal pelvic ultrasound performed for detailed evaluation. Real-time scanning performed and static images obtained with Doppler. FINDINGS: The uterus is anteverted. A single viable intrauterine gestation is again seen, measuring 11 weeks 6 days by crown rump length (11 weeks 6 days by previous sonogram of 07/02/2018). heart rate is 157 BPM. The placenta is anterior. No definite perigestational hemorrhage is appreciated on transvaginal imaging. The right ovary measures 2.7 x 1.7 x 1.6 cm, and appears unremarkable, with normal flow. The left ovary measures 1.9 x 1.5 x 1.0 cm, and appears unremarkable, with normal flow. No free fluid is present. IMPRESSION: SINGLE VIABLE INTRAUTERINE GESTATION, WITH EXPECTED GROWTH FROM PREVIOUS SONOGRAM. NO EVIDENCE OF OVARIAN TORSION. NO FREE FLUID. TD: 09/20/2017 12:16 BI
[2017-09-20] MEDS ORDERED: SODIUM CHLORIDE FLUSH 0.9% 10 ML SYRINGE IVP PRN (13:32)
[2017-09-20] MEDS ORDERED: PROMETHAZINE 25 MG/1 ML VIAL IM PRN (13:32)
[2017-09-20] MEDS ORDERED: ALBUTEROL NEB 2.5 MG/3 ML INH PRN (13:38)
[2017-09-20 14:14] LABS: ALBUMIN 3.3 g/dL (3.2-5.5); ALKALINE PHOSPHATASE 30 IU/L (42-121); ALT ALANINE AMINOTRANSFERASE 19 IU/L (10-60); AST ASPARTATE AMINOTRANSFERASE 21 IU/L (10-42); BILIRUBIN,TOTAL 0.3 mg/dL (0.2-1.0); LIPASE 14 U/L (22-51); MAGNESIUM 1.7 mg/dL (1.7-2.8); PHOSPHORUS 3.5 mg/dL (2.5-4.6); TOTAL PROTEIN 6.2 g/dL (6.7-8.2)
[2017-09-20 14:16] LABS: BILIRUBIN,DIRECT < 0.1 mg/dL (0.1-0.5)
[2017-09-20 14:26] LABS: % IRON SATURATION 37 % (20-50); IRON 95 ug/dL (28-170); TOTAL IRON BINDING CAPACITY 253 ug/dL (250-450); TRANSFERRIN 181 mg/dL (192-382)
[2017-09-20] MEDS: DEXTROSE 5%-0.9% NACL 1,000 ML IV SCH (16:19)
[2017-09-20] MEDS: SODIUM CHLORIDE FLUSH 0.9% 10 ML SYRINGE IVP SCH (16:19)
[2017-09-20] MEDS ORDERED: METOCLOPRAMIDE 10 MG/2 ML VIAL IVP PRN (18:00)
[2017-09-20] MEDS ORDERED: ZOLPIDEM 5 MG TABLET PO PRN (18:05)
[2017-09-20] MEDS ORDERED: BACLOFEN 10 MG TABLET PO PRN (18:05)
--- NOTE | 2017-09-20 18:18 | CONSULTATION NOTE ---
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 () : reports: None HEENT: reports: None Psych: reports: None Musculoskeletal: reports: None Derm: reports: None MRSA Hx?: No - Past Surgical History General: reports: 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: 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: Other (12/30/2016 laparoscopic lysis of adhesions) - Substance History Use: Uses substance without health or social issues: NONE Abuse: Recurrent use of substance despite neg consequences: NONE Meds/Allgy - Home Medications Home Medications: Ambulatory Orders Medication Instructions Recorded Confirmed Albuterol Sulf [Ventolin Hfa 1 - 2 puffs INH Q4HR PRN #1 inhaler 09/08/17 Inhaler] Vitamin [Trinatal Rx 1] 1 each PO DAILY 09/20/17 09/20/17 - Allergies Allergies/Adverse Reactions: Allergies Allergy/AdvReac Type Severity Reaction Status Date / Time acetaminophen Allergy Severe Anaphylaxis Verified 09/20/17 14:43 Review of Systems - Cardiovascular Cariovascular: reports: Syncope - Gastrointestinal Gastrointestinal: reports: Nausea, Vomiting Exam - Vital Signs Reviewed Vital Signs: Yes Vital Signs: Vital Signs x48h Temp Pulse Pulse Resp BP BP Pulse Ox 09/20/17 16:00 97.7 F 63 16 112/65 99 09/20/17 14:11 97.7 F 62 20 104/63 99 - Physical Exam General Appearance: positive: No acute distress Eyes Bilateral: positive: Normal inspection Abdomen: positive: Non-tender Neurologic/Psychiatric: positive: Oriented x3 Conclusion/Plan - Diagnosis Diagnosis: 22 yo with a 11w6d IUP. Improved nausea and vomiting. Syncope likely due to vasovagal stimulation - Lab Results Fish Bones: 09/20/17 08:31 09/20/17 08:31 - Diagnostic Imaging Results Diagnostic Imaging Results: positive: Final report reviewed - Other Other Results/Comments: 22 yo with a 11w6d IUP Reassuring status Improved nausea and vomiting Improved syncope Recommend current care with PRN reglan and phenergan PRN baclofen and ambien Anticipate discharge to home in AM Consultation dictated: [id number]
[2017-09-20 19:15] LABS: THYROID STIMULATING HORMONE 1.27 uIU/mL (0.34-5.60)
[2017-09-20 19:18] LABS: FREE T4 (FREE THYROXINE) 0.83 ng/dL (0.58-1.64)
[2017-09-20] MEDS ORDERED: METOCLOPRAMIDE 10 MG TABLET PO PRN (19:22)
[2017-09-20] MEDS ORDERED: PROMETHAZINE 25 MG TABLET PO PRN (19:23)
[2017-09-20 19:38] LABS: FREE T3 3.27 pg/mL (2.5-3.9)
[2017-09-21] MEDS: SODIUM CHLORIDE FLUSH 0.9% 10 ML SYRINGE IVP SCH ×2 (02:03→09:31)
[2017-09-21] MEDS: DEXTROSE 5%-0.9% NACL 1,000 ML IV SCH (03:55)
[2017-09-21] MEDS ORDERED: PRENATAL VITAMIN TABLET PO SCH (08:00)
[2017-09-21] MEDS ORDERED: POLYETHYLENE GLYCOL 3350 17 GM PACKET PO SCH (09:00)
[2017-09-21 10:21] LABS: HEPATITIS B SURFACE ANTIGEN NON-REACTIVE (NON-REACTIVE)
--- NOTE | 2017-09-21 11:42 | PROVIDER PROGRESS NOTE ---
Subjective - Prog Note Date Prog Note Date: 09/21/17 Prog Note Time: 11:38 - Subjective Subjective: Patient sitting in bed. Per [employer] patient vomited breakfast. Patient states she last had an antiemetic last PM. RN gave patient po reglan after last emesis. Patient states she is ambulating and tolerating a regular diet. No vaginal bleeding. Uses [employer]. Would like a note stating she was hospitalized for her work. Objective - Vital Signs/Intake & Output Reviewed Vital Signs: Yes Vital Signs: Vital Signs x48h Temp Pulse Pulse Pulse Pulse Resp BP 09/21/17 10:27 78 105 H 66 09/21/17 07:46 97.9 F 72 12 108/65 09/21/17 05:52 97.9 F 70 16 109/67 BP BP BP Pulse Ox 09/21/17 10:27 110/70 118/78 121/70 09/21/17 07:46 96 09/21/17 05:52 100 Intake & Output: Intake & Output 09/18/17 09/19/17 09/20/17 09/21/17 23:59 23:59 23:59 23:59 Intake Total 1748 Output Total 600 1875 Balance -600 -127 - Objective General Appearance: positive: No acute distress Eyes Bilateral: positive: Normal inspection Abdomen: positive: Non-tender Skin: positive: Color nml Extremities: positive: Non-tender Neurologic/Psychiatric: positive: Oriented x3 - Lab Results Fish Bones: 09/20/17 08:31 09/20/17 08:31 Other Labs: Lab Results x24hrs 09/20/17 09/20/17 09/20/17 Range/Units 18:35 18:35 18:35 TSH 1.27 (0.34-5.60) uIU/mL Free T4 0.83 (0.58-1.64) ng/dL Free T3 pg/mL 3.27 (2.5-3.9) pg/mL Hep Bs Antigen NON-REACTIVE (NON-REACTIVE) Rubella IgG Antibody 33 (POS) IU/mL Blood Type Antibody Screen 09/20/17 Range/Units 18:35 TSH (0.34-5.60) uIU/mL Free T4 (0.58-1.64) ng/dL Free T3 pg/mL (2.5-3.9) pg/mL Hep Bs Antigen (NON-REACTIVE) Rubella IgG Antibody IU/mL Blood Type A POSITIVE Antibody Screen NEGATIVE Assessment/Plan - Problem List (1) Vomiting affecting , antepartum Impression: 22 yo with a 12w0d IUP Improved nausea and vomiting Improved syncopal episodes; work up negative Will place patient on routine antiemetics. If she tolerates lunch, plan to discharge to home. Will fax Rx for reglan and ranitidine to [facility] pharmacy. Also will write a note stating she was hospitalized 09/20/2017 - 09/21/2017. Patient to follow up with OB physician, Dr. Aquino. labs have been drawn. Labs, EKG, Meds, Allergy - Lab Results Fish Bones: 09/20/17 08:31 09/20/17 08:31 Other Lab Results: Lab Results x24hrs 09/20/17 09/20/17 09/20/17 Range/Units 18:35 18:35 18:35 TSH 1.27 (0.34-5.60) uIU/mL Free T4 0.83 (0.58-1.64) ng/dL Free T3 pg/mL 3.27 (2.5-3.9) pg/mL Hep Bs Antigen NON-REACTIVE (NON-REACTIVE) Rubella IgG Antibody 33 (POS) IU/mL Blood Type Antibody Screen 09/20/17 Range/Units 18:35 TSH (0.34-5.60) uIU/mL Free T4 (0.58-1.64) ng/dL Free T3 pg/mL (2.5-3.9) pg/mL Hep Bs Antigen (NON-REACTIVE) Rubella IgG Antibody IU/mL Blood Type A POSITIVE Antibody Screen NEGATIVE - Medications Medications: Ambulatory Orders Medication Instructions Recorded Confirmed Albuterol Sulf [Ventolin Hfa 1 - 2 puffs INH Q4HR PRN #1 inhaler 09/08/17 Inhaler] Vitamin [Trinatal Rx 1] 1 each PO DAILY 09/20/17 09/20/17 - Allergy Allergy: Allergies Allergy/AdvReac Type Severity Reaction Status Date / Time acetaminophen Allergy Severe Anaphylaxis Verified 09/20/17 14:43 Albuterol Sulf [Ventolin Hfa Inhaler] 1 - 2 puffs INH Q4HR PRN #1 inhaler Vitamin [Trinatal Rx 1] 1 each PO DAILY 09/20/17
[2017-09-21 12:51] LABS: HIV AG/AB 4TH GEN NON-REACTIVE (NON-REACTIVE)
[2017-09-21] MEDS ORDERED: METOCLOPRAMIDE 10 MG TABLET PO SCH (13:00)
[2017-09-21 13:05] VITALS: BP 109/59
[2017-09-21 14:09] LABS: HEPATITIS C ANTIBODY NON-REACTIVE (NON-REACTIVE)
--- NOTE | 2017-09-23 11:52 | CONSULTATION NOTE ---
DATE OF SERVICE: 09/20/2017 Physician: Rebecca Rivero DO IDENTIFICATION: This is a 22-year-old G1, P0, with an 11-week, 6-day intrauterine , LMP unknown. EDC is 04/05/2018 established by a 9-week , 2-day ultrasound. HISTORY OF PRESENT ILLNESS: This is a patient of the [facility] who presented to the emergency department with complaints of syncope. The patient recalled that about 6:30 this morning she started having nausea and vomiting. She went to the restroom, where apparently she had an undocumented syncopal episode. Later today she had 3 other syncopal episodes, one of which was seen by a friend of hers. The patient was then admitted to the hospital for workup. She has been admitted to observation by Dr. Hernandez. So far, the workup has been benign. Electrolytes have been within normal limits, as was her EKG. Echocardiogram today per Dr. Hernandez is negative. Dr. Hernandez asked me in consultation to take a look at the , as well as to investigate the patient's pain in the lower abdomen. The patient states that after getting IV Reglan and Phenergan today, she is feeling better with respect to her vomiting. She still is a little nauseated, but she has not had any vomiting in the recent past. The patient states that she does have some cramping sensation in the left lower quadrant, and she points more towards her inguinal canal. She denies any kay vaginal bleeding or dysuria. PAST MEDICAL HISTORY: None. PAST SURGICAL HISTORY 1. In 2014 laparoscopic appendectomy in [place], [place]. 2. On 12/30/2016 laparoscopic lysis of adhesions by myself. ALLERGIES: ACETAMINOPHEN, WITH WHICH SHE HAD ANAPHYLAXIS. MEDICATIONS 1. vitamins. 2. Albuterol p.r.n. SOCIAL HISTORY: She denies any tobacco, alcohol, or illicit drug use. 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 She states that her equine science instructor is Dr. Aquino, with whom she has had 1 visit at the [employer] but has not drawn any laboratories. PAST OBSTETRICAL HISTORY, CURRENT: Unknown LMP, but ultrasound performed at [facility] on 09/02/2017 established dates at 9 weeks 2 days. Spickard rump length is 25.8 mm. Heart rate 166 beats per minute. Yolk sac 6.3 mm. Ultrasound EDC is 04/05. Cervical length is closed. Uterus is anteverted. No free fluid. Ovaries are unremarkable. PAST GYNECOLOGICAL HISTORY: She does have menorrhagia as well as dysmenorrhea. The patient did have a Nexplanon placed in August 2016; I assume it has been removed since , now. She denies any sexually transmitted diseases or history of abnormal Pap smears. FAMILY HISTORY: She denies any female carcinoma. REVIEW OF SYSTEMS: Negative unless otherwise stated. OBJECTIVE VITAL SIGNS: Temperature is 97.7. Blood pressures are 112/67, 111/70, 104/63, 112/65. Respiratory rate ranges between 16 and 20. She is saturating 99% to 100% on room air. GENERAL: The patient is a well-developed, well-nourished, female in no apparent distress. She is alert and oriented x3. The patient is very pleasant and easy to speak to. ABDOMEN: Soft, nontender. There is some tenderness to palpation but definitely no signs of peritonitis. LABORATORY/DATA The 09/20/2017 labs show a white count of 10.1, hemoglobin 10.6, hematocrit 32.9 , platelets of 202. Sodium 134, potassium 3.7, BUN 0.5, glucose 84. Urinalysis is within normal limits. OB ultrasound performed on 09/20/2017 shows an anteverted uterus with a single viable intrauterine measuring 11 weeks 6 days by crown rump length. heart rate is 157 beats per minute. Placenta is anterior. No definite perigestational hemorrhage is appreciated on transvaginal ultrasound. Right ovary measures 2.7 x 1.7 x 1.6 cm and appears unremarkable with normal flow. Left ovary measures 1.9 x 1.5 x 1.0 cm and appears unremarkable with normal flow. No free fluid is present. The 09/08/2017 EKG shows sinus rhythm with a normal P axis. Rate is 83, CT interval 151, QRSD of 73, QT is 361, and QTc is 425. JOHN was performed on 09/20/2017, but final report is not available per Dr. Hernandez. The echo is within normal limits. ASSESSMENT 1. A 22-year-old G1, P0 with 11-week, 6-day intrauterine . 2. Stable maternal status. 3. Improved nausea and vomiting. 4. Improved syncope. 5. Lower abdominal pain, most likely secondary to changes, as well as to vomiting. PLAN 1. Recommend a continuation of antiemetics. Will convert IV medications to p.o. 2. We will get panel, as well as a thyroid function tests 3. Ambien p.r.n. 4. Since patient is ALLERGIC TO ACETAMINOPHEN, we will offer her baclofen if she so needs it. 5. We will anticipate discharging the patient to home tomorrow. Obstetrically she looks stable and, from what Dr. Hernandez is telling me, she is also stable from the cardiopulmonary perspective. 6. Anticipate having the patient follow up with Dr. Aquino at [facility] next week. cc: [facility], Dr. Aquino TD: 09/21/2017 03:13 MTDD
--- NOTE | 2017-09-23 13:21 | DISCHARGE SUMMARY ---
DATE OF ADMISSION: 09/20/2017 DATE OF DISCHARGE: 09/21/2017 IDENTIFICATION 1. A 22-year-old G1, P0 with a 11-week 6-day intrauterine . 2. Nausea and vomiting. 3. Syncope. DISCHARGE DIAGNOSES 1. A 22-year-old G1, P0 with a 12-week 0-day intrauterine . 2. Improved nausea and vomiting. 3. Improved syncope, workup negative. HISTORY OF PRESENT ILLNESS: This is a patient of [facility] who presented on 09/20/2017. The patient was seen earlier on 09/19/2017 with complaints of nausea and vomiting. Workup was unremarkable at that time, and she was discharged to home with a diagnosis of lower abdominal pain, prescription of Reglan, and instructions to follow up with her obstetrical provider. Patient returned to the emergency department approximately 8 hours later with complaints of new-onset syncope. The patient apparently had 4 episodes of syncope. The first one was per patient report. The second one was seen by her friend. She hit her head on the toilet, but not hard apparently. The history of the syncope occurred after the patient was having episodes of nausea and vomiting, and then she apparently passed out. The patient was admitted to the hospital to Dr. Hernandez. She was worked up, which included an EKG and an echocardiogram. Echocardiogram showed overall left ventricular systolic function is normal with ejection fraction of 65% to 70 %, normal diastole for age. Right ventricle was normal in size and function. No hemodynamically significant cardiac valve disease is noted. Labs showed H and H of 10.6 and 32.9, platelets 202. Potassium 3.7, creatinine 0.5, glucose 84, AST 21. TSH 1.27, free T4 at 0.83, free T3 at 3.27. Urinalysis is negative. The patient also had 2 recent obstetrical ultrasounds, the first one performed on 09/02/2017 which established dates. It was ordered in the emergency department secondary to uterine cramping. Ultrasound was performed revealing a single viable intrauterine measuring 9 weeks 2 days and a crown-rump length of 25.8 mm. EDC by ultrasound is 04/05/2018. Again, LMP was unknown. Repeat ultrasound on 09/20/2017 revealed a single viable intrauterine gestation , measuring 11 weeks 6 days by crown rump length. Anterior placenta, no perigestational hemorrhage is appreciated on transvaginal imaging. Left and right ovaries appear unremarkable and both showing normal flow, no free fluid. Telemetry was unremarkable as well throughout the patient's observation. The patient improved with IV fluids as well as antiemetics. She did complain of having lower abdominal pain, but I suspect this is due to her vomiting. The patient denied any vaginal bleeding throughout her entire hospital course. She has had no further episodes of syncope. I suspect her syncope is probably a vasovagal event secondary to her retching. I spoke with Dr. Hernandez, who has cleared the patient of her syncope and has no further input. I will just discharge the patient to home later today after I see if she tolerates lunch. The patient is to continue antiemetics until she is feeling improved. A prescription for Reglan has been sent to [facility] in [place], [place]. In addition, the patient describes having GERD. A prescription of ranitidine has also been sent to [facility] in [place], [place]. Since the patient has not had her laboratories drawn, I have taken the liberty of doing them. So far, she is immune to rubella and hepatitis B surface antigen is negative. We are currently pending on her HIV, RPR, and hepatitis C workup. She is also A-positive, antibody screen is negative. The patient will be given a note stating that she was here in the hospital for her [place] command. The patient also been instructed to follow up with Dr. Aquino at [facility] in [place]. cc: [facility], TD: 09/22/2017 05:35 MTDAlissa
--- NOTE | 2017-09-27 13:58 | HISTORY & PHYSICAL EXAMINATION ---
DATE OF SERVICE: 09/20/2017 Physician: Nolvia Hernandez MD HISTORY OF PRESENT ILLNESS: This is a 22-year-old black female who is in the [place]. She has a negative past medical history except having an appendectomy. The patient presents at 12 weeks of with several days of nausea and vomiting, and 4 episodes of syncope. The patient states that she has not had nausea or vomiting earlier in the , but that nausea and vomiting began only about 4-5 days ago. With the first episode, she was on her knees vomiting into a toilet bowl and then had brief dizziness and then found herself on the floor of the bathroom. She was able to get up and resume her activities and sought no attention. With the second one, a similar event had happened. She was seen in the emergency room after this with the complaint of the nausea and vomiting, and received antiemetics and rehydration and did not require admission; however, that emergency room note has no mention of a complaint of syncope. The patient had a third event that was also associated with nausea and vomiting, and then a fourth event that was witnessed by a friend. This occurred when she was walking , was nauseated, she did get dizzy, fell forward onto a couch, and then awoke supine and remembers the friend shining a light in her eyes. Apparently she had a pulse, according to the friend that was awakening her. She was brought to the emergency room with this complaint. The patient is now placed in observation for evaluation of these symptoms. REVIEW OF SYSTEMS: The patient denies a fever, cough or sputum production, chest pain or shortness of breath, diarrhea or melena. She has had mild bilateral lower quadrant pain recently. There have been no sick contacts, no new medications, no travel out of the ordinary. This is her first . She has been told that the fetus is fine. MEDICATIONS AT HOME 1. vitamins. 2. Albuterol p.r.n. for asthma. ALLERGIES: TYLENOL, which gave her SEVERE ANAPHYLAXIS. SOCIAL HISTORY: The patient never smoked cigarettes, uses no alcohol, does not have any substance abuse history. 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 PHYSICAL EXAMINATION GENERAL: Young black female who is in no distress, sitting upright in bed. VITAL SIGNS: Blood pressure 110/61, pulse of 67 in sinus rhythm, afebrile, room air saturation 98%. HEENT: Unremarkable. NECK: No JVD or carotid bruit. No thyromegaly. LUNGS: Chest clear. HEART: Heart sounds normal. No audible murmur or gallop. ABDOMEN: Soft, nontender in the epigastrium but mildly tender in both lower quadrants. No rebound or guarding. The uterus is non-palpable. EXTREMITIES: No clubbing, cyanosis, or edema. SKIN: No rash. NEUROLOGIC: Grossly intact. LABORATORY/DATA Sodium 134, otherwise normal electrolytes. Normal BUN and creatinine, normal glucose and calcium. Magnesium 1.7. Bilirubin normal. Liver tests normal. Albumin normal at 3.3. White blood count 10.1 with a normal differential. Hemoglobin 10.6 with an MCV of 74 , platelet count normal at 202. Urine was without evidence of bacteria. A Doppler was done by the emergency room doctor that showed a viable fetus. She had no EKG done. IMPRESSION 1. Syncope, recurrent. 2. Nausea and vomiting, lower abdominal pain without diarrhea. 3. Probable dehydration, requiring 2 liters of saline while in the emergency room. 4. Remote history of asthma. 5. 12 weeks . PLAN: Place the patient in observation on telemetry. Obtain orthostatic vital signs to assess for a significant drop in blood pressure to explain her syncope. Obtain an Echo to rule out structural heart disease to explain her syncope. Continue with hydration and antiemetics. Obtain an MOLD PULLER consult regarding the nausea, vomiting, and pain in the lower left and right quadrants at 12 weeks of . CODE STATUS: FULL CODE. DEEP VENOUS THROMBOSIS PROPHYLAXIS: SCDs. ATTESTATION: The patient is expected to be discharged or transferred to another facility within 96 hours: Yes. TD: 09/26/2017 19:01 BI
== END 2017-09-21 13:13 | disposition home or self-care (01) ==
LOC: ED 08:11 → OBS 13:32
PROVIDERS: ADMIT Internal Medicine; ATTEND Obstetrics & Gynecology
DX: O21.9 Vomiting of pregnancy, unspecified (principal); Z3A.12 12 weeks gestation of pregnancy; O26.891 Other specified pregnancy related conditions, first trimester; R55 Syncope and collapse; R10.31 Right lower quadrant pain; R10.32 Left lower quadrant pain; O99.611 Diseases of the digestive system complicating pregnancy, first trimester; K21.9 Gastro-esophageal reflux disease without esophagitis; Z88.6 Allergy status to analgesic agent
CPT/HCPCS: 36415; 76801; 76817; 80048; 80076; 81003; 83540; 83690; 83735; 84100; 84439; 84443; 84466; 84481; 85025; 86762; 86780; 86803; 86850; 86900; 86901; 87340; 87389; 87491; 87591; 93005; 93306; 93976; 96361; 96374; 96376; 99284; A9270; G0378; J2765; 80053; 81001; 87086; 99283

== ENCOUNTER 2018-01-19 13:57 | Outpatient (CLI) | payer OTHER ==
[2018-01-19 14:10] VITALS: BP 125/66
[2018-01-19] MEDS ORDERED: TERBUTALINE 1 MG/ML VIAL SUBQ ONE (14:29)
[2018-01-19 15:12] LABS: BILIRUBIN,URINE NEGATIVE (NEGATIVE); GLUCOSE, URINE (UA) NEGATIVE (NEGATIVE); KETONES,URINE (UA) 15 mg/dL (NEGATIVE); LEUKOCYTE ESTERASE, URINE NEGATIVE (NEGATIVE); NITRITE,URINE NEGATIVE (NEGATIVE); OCCULT BLOOD,URINE NEGATIVE (NEGATIVE); PROTEIN,URINE NEGATIVE (NEGATIVE); UROBILINOGEN,URINE 1 (NORMAL) E.U./dL (NORMAL)
[2018-01-19 15:27] LABS: BACTERIA,URINE None Seen /HPF (None Seen); CLARITY,URINE CLEAR (CLEAR); RBC,URINE None Seen /HPF (0-5); SQUAMOUS EPITHELIAL CELL,UR NONE SEEN (<= Few)
[2018-01-19] MEDS ORDERED: NIFEdipine ER 30 MG TABLET PO ONE (16:00)
== END 2018-01-19 15:40 | disposition home or self-care (01) ==
LOC: WFO 13:57 → FBP 13:59 → WFO 15:40
PROVIDERS: ATTEND Obstetrics & Gynecology
DX: O62.9 Abnormality of forces of labor, unspecified (principal); Z3A.29 29 weeks gestation of pregnancy
CPT/HCPCS: 81001; 82731; 96372; 99213; A9270; 87086

== ENCOUNTER 2018-02-09 20:37 | Outpatient (CLI) | payer OTHER ==
[2018-02-09] MEDS ORDERED: NIFEdipine ER 30 MG TABLET PO STA (21:15)
[2018-02-09] MEDS ORDERED: NIFEdipine ER 30 MG TABLET PO ONE (21:29)
[2018-02-09 22:17] LABS: BILIRUBIN,URINE NEGATIVE (NEGATIVE); GLUCOSE, URINE (UA) NEGATIVE (NEGATIVE); KETONES,URINE (UA) NEGATIVE (NEGATIVE); LEUKOCYTE ESTERASE, URINE NEGATIVE (NEGATIVE); NITRITE,URINE NEGATIVE (NEGATIVE); OCCULT BLOOD,URINE NEGATIVE (NEGATIVE); PH,URINE 6.5 PH (5.0-7.5); PROTEIN,URINE NEGATIVE (NEGATIVE); UROBILINOGEN,URINE 1 (NORMAL) E.U./dL (NORMAL)
[2018-02-09 22:23] LABS: BACTERIA,URINE Few /HPF (None Seen); CLARITY,URINE CLEAR (CLEAR); RBC,URINE None Seen /HPF (0-5); SQUAMOUS EPITHELIAL CELL,UR MOD Squamous (<= Few)
[2018-02-09 23:02] VITALS: BP 114/71
[2018-02-09] MEDS ORDERED: NIFEdipine ER 30 MG TABLET PO SCH (23:03)
== END 2018-02-09 23:15 | disposition home or self-care (01) ==
LOC: WFO 20:37 → FBP 20:40 → WFO 23:15
PROVIDERS: ATTEND Obstetrics & Gynecology
DX: O47.03 False labor before 37 completed weeks of gestation, third trimester (principal); Z3A.32 32 weeks gestation of pregnancy
CPT/HCPCS: 81001; 82731; 99213; A9270; 87086

== ENCOUNTER 2018-02-12 14:07 | Emergency (ER) | payer OTHER ==
[2018-02-12] MEDS ORDERED: BETAMETHASONE 30 MG/5 ML VIAL IM ONE (15:43)
[2018-02-12] MEDS ORDERED: LACTATED RINGERS 1,000 ML IV ONE (15:43)
[2018-02-12] MEDS ORDERED: ONDANSETRON 4 MG/2 ML VIAL IVP PRN (15:53)
[2018-02-12] MEDS ORDERED: SODIUM CHLORIDE FLUSH 0.9% 10 ML SYRINGE ONE (16:02)
[2018-02-12 16:08] LABS: RUPTURE OF MEMBRANES PLUS NEGATIVE (NEGATIVE)
[2018-02-12 16:08] LABS: BASOPHILS # (AUTO) 0.1 10^3/uL (0.0-0.1); EOSINOPHILS # (AUTO) 0.1 10^3/uL (0.0-0.7); HGB - HEMOGLOBIN 10.3 g/dL (12.0-16.0); LYMPHOCYTES # (AUTO) 1.5 10^3/uL (1.5-3.5); MEAN CORPUSCULAR VOLUME 77.2 fL (81.0-99.0); MONOCYTES # (AUTO) 0.8 10^3/uL (0.0-1.0); MONOCYTES % (AUTO) 6.3 %; RED BLOOD COUNT 4.25 10^6/uL (4.20-5.40); RED CELL DISTRIBUTION WIDTH 13.4 % (12.0-15.0)
[2018-02-12 16:11] LABS: BASOPHILS % (AUTO) 0.4 %; EOSINOPHILS % (AUTO) 0.4 %; LYMPHOCYTES % (AUTO) 11.7 %; MEAN CORPUSCULAR HEMOGLOBIN 24.3 pg (27.0-31.0); MEAN CORPUSCULAR HGB CONC 31.5 g/dL (32.0-36.0); MEAN PLATELET VOLUME 9.4 fL (7.9-10.8); NEUTROPHILS # (AUTO) 10.5 10^3/uL (1.5-6.6); NEUTROPHILS % (AUTO) 81.2 %; PLT - PLATELET COUNT 233 10^3/uL (130-450)
[2018-02-12 16:48] LABS: BILIRUBIN,URINE NEGATIVE (NEGATIVE); GLUCOSE, URINE (UA) NEGATIVE (NEGATIVE); KETONES,URINE (UA) NEGATIVE (NEGATIVE); LEUKOCYTE ESTERASE, URINE NEGATIVE (NEGATIVE); NITRITE,URINE NEGATIVE (NEGATIVE); OCCULT BLOOD,URINE NEGATIVE (NEGATIVE); PH,URINE 6.5 PH (5.0-7.5); PROTEIN,URINE NEGATIVE (NEGATIVE); UROBILINOGEN,URINE 0.2 (NORMAL) E.U./dL (NORMAL)
[2018-02-12 16:50] LABS: CLARITY,URINE CLEAR (CLEAR)
[2018-02-12 17:20] LABS: BACTERIA,URINE Few /HPF (None Seen); RBC,URINE 0-5 /HPF (0-5); SQUAMOUS EPITHELIAL CELL,UR MANY Squamous (<= Few)
[2018-02-12 17:26] VITALS: BP 113/79
--- NOTE | 2018-02-12 17:34 | Ultrasound Report ---
Procedure Date: 02/12/2018 Accession Number: [id number] / [id number] Procedure: US - OB Transvaginal CPT Code: FULL RESULT: EXAM: OB TRANSVAGINAL ULTRASOUND EXAM DATE: 02/12/2018 05:12 PM. CLINICAL HISTORY: ctx. COMPARISON: None. TECHNIQUE: Realtime transabdominal pelvic scan performed to identify the uterus and adnexa and as an overview of other pelvic structures, followed by transvaginal scan to provide greater detail of the uterus and adnexa, with static image documentation. FINDINGS: Estimated gestational age of 32 weeks 4 days with an YAMILETH of 04/05/2018. Single intrauterine . heart rate is 146 bpm. On transvaginal imaging, the cervix is closed measuring 3.9 cm. IMPRESSION: Closed cervix measuring 3.9 cm. Single intrauterine viable with a heart rate of 146 bpm. RADIA
--- NOTE | 2018-02-12 20:16 | HISTORY & PHYSICAL EXAMINATION ---
DATE OF SERVICE: 02/12/2018 Physician: Michael Leyva MD ADMIN NOTE FOR OBSERVATION DIAGNOSES 1. A 33-week gestation. 2. Syncope. 3. Uterine cramps. 4. Vaginal bleeding, spotting with discharge. HISTORY OF PRESENT ILLNESS: Patient is a 21-year-old -[place] primigravida at 33 weeks gestation who without warning had 2 syncopal episodes this morning. She was brought to the emergency room for evaluation and no cardiac or central nervous causes could be found. Reference ER attending's notes. She reports some vaginal spotting, but no kay bleeding. She does not have a history of prior losses of consciousness, seizure, or chronic headaches. She reports feeling ill with fevers and chills. She cannot cite any recent infectious exposure or exposure to tainted food. She has had longstanding nausea. On 12/29/2016, the patient was evaluated by Dr. Rivero for Bilateral lower quadrant pain. Torsion was ruled out and patient' s pain uneventfully resolved. [facility] obstetrical records requested. PAST MEDICAL HISTORY: No chronic disease history. PAST SURGICAL HISTORY: 2015, She had a laparoscopic appendectomy in [facility] without complication. ALLERGIES: ACETAMINOPHEN CAUSES ANAPHYLACTOID REACTION. MEDICATIONS: Nexplanon, August 2016. SOCIAL HISTORY: No drug, tobacco, or alcohol use. 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 She does not have a steady relationship but a romantic relationship, but does have a close friend. FAMILY HISTORY: No female cancers. REVIEW OF SYSTEMS CONSTITUTIONAL: Negative other than malaise. HEENT: Negative. LUNGS: Patient reports congestion, occasional cough. CARDIAC: Negative. GASTROINTESTINAL: Nausea. GENITOURINARY: Reference HPI. EXTREMITIES: Negative. NEUROLOGIC: Syncope as noted before. SKIN: Negative. PSYCHIATRIC: Negative. She denies depression or anxiety. PHYSICAL EXAMINATION GENERAL: Well groomed fluid speech, cooperative. VITAL SIGNS: HEENT: Supple neck. No thyromegaly. Dry mucous membranes. LUNGS: Clear to auscultation. CARDIAC: Regular. No murmur, no gallop. ABDOMEN: Slightly bloated. No tenderness. No organomegaly. UTERUS: Appropriate size, occasional contractions, normal resting tone. EXTERNAL GENITALIA: No lesions. VAGINA: Creamy discharge, not watery. GC chlamydia, GBS, fibronectin, and AROM swabs taken. CERVIX: Slightly patulous, soft, midposition, 50% effaced, -2 station. UTERUS: Nontender. ADNEXA: Cannot clearly evaluate due to size. EXTREMITIES: Moves all 4 extremities well. Normal gait. NEUROLOGIC: Cranial nerves intact. Motor and sensory function grossly intact. SKIN: No apparent rashes. PSYCHOLOGIC: Patient seems calm, not anxious. No apparent depression. ASSESSMENT: Patient has experienced a witnessed syncopal event that lasted approximately 3 minutes. There was no obvious neurologic or cardiovascular cause. Reference Emergency Department notes. Obstetrically, patient is having contractions and there are subtle changes in the cervix in the cervical exam. Patient states that her cervix had been previously closed and thick. No obvious causes for contractions other than dehydration and possibly a viral syndrome. PLAN 1. Begin workup for contractions. 2. Cervical length by ultrasound. 3. Await cultures, fibronectin and AROM testing. 4. Await CBC and urinalysis. 5. Bolus patient with 1 liter lactated Ringer's then convert to 166 mL per hour. Continue monitoring and observation. 6. Await [facility] records for review. COURSE OF CARE EFM monitor recorded q. 5-7 minute contractions of mild intensity and normal resting tone. Baseline remained 140s with good variability and 1 overall. Patient received IV fluid bolus of 1000 cc lactated Ringer which over time illuminated the contractions. Cervical exam did not change. fibronectin negative, ROM plus negative, cultures pending. Ultrasound cervical length 3.7 cm. Hemoglobin level was 10 prior to hydration and patient was advised to contact her [facility] provider for iron supplementation. Uncertain of prior hemoglobinopathy testing. Patient received first dose of betamethasone and will return in 24 hours for second. Given the above data delivery within the next 7 days is unlikely. Patient's syncope episodes are not explained. 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 She was discharged home with a 48 hour work excuse and instructed to consult the [facility] medical/obstetrical service immediately to determine what further workup is necessary. Patient was discharged with complete instructions and warning sign/callback instructions. TD: 02/12/2018 16:08 [facility]
== END 2018-02-12 18:28 ==
LOC: ED 14:07 → FBP 14:46 → UNDOADMOB 14:46 → UNDODISOB 18:40
DX: O99.89 Other specified diseases and conditions complicating pregnancy, childbirth and the puerperium (principal); R55 Syncope and collapse; O99.283 Endocrine, nutritional and metabolic diseases complicating pregnancy, third trimester; E86.0 Dehydration; O26.853 Spotting complicating pregnancy, third trimester; Z3A.33 33 weeks gestation of pregnancy
CPT/HCPCS: 76817; 81001; 82731; 84112; 85025; 87491; 87591; 87797; 93005; 96361; 96372; 96374; 99214; J7120; 87086

== ENCOUNTER 2018-02-12 14:46 | Outpatient (CLI) | payer OTHER | END 2018-02-12 18:40 | LOC: WFO 14:46 | PROVIDERS: ATTEND Obstetrics & Gynecology | DX: Z53.9 Procedure and treatment not carried out, unspecified reason (principal) ==

== ENCOUNTER 2018-03-05 15:25 | Outpatient (CLI) | payer OTHER ==
[2018-03-05 15:42] VITALS: BP 114/72
== END 2018-03-05 16:20 | disposition home or self-care (01) ==
LOC: WFO 15:25 → FBP 15:27 → WFO 16:20
PROVIDERS: ATTEND Obstetrics & Gynecology
DX: Z34.03 Encounter for supervision of normal first pregnancy, third trimester (principal)
CPT/HCPCS: 99213

== ENCOUNTER 2018-03-08 19:25 | Observation (INO) | payer OTHER ==
[2018-03-08] MEDS ORDERED: SODIUM CHLORIDE FLUSH 0.9% 10 ML SYRINGE ONE (20:50)
[2018-03-08] MEDS ORDERED: LACTATED RINGERS 1,000 ML IV ONE ×2 (20:50→22:05)
[2018-03-08] MEDS ORDERED: ALBUTEROL SULF INH PRN (20:52)
[2018-03-08] MEDS ORDERED: ALBUTEROL 6.7 GM INHALER INH PRN (21:06)
[2018-03-08 21:31] LABS: BASOPHILS # (AUTO) 0.1 10^3/uL (0.0-0.1); BASOPHILS % (AUTO) 0.6 %; EOSINOPHILS % (AUTO) 0.3 %; HGB - HEMOGLOBIN 10.4 g/dL (12.0-16.0); LYMPHOCYTES # (AUTO) 1.4 10^3/uL (1.5-3.5); LYMPHOCYTES % (AUTO) 14.7 %; MEAN CORPUSCULAR HEMOGLOBIN 24.1 pg (27.0-31.0); MEAN CORPUSCULAR HGB CONC 32.3 g/dL (32.0-36.0); MEAN CORPUSCULAR VOLUME 74.8 fL (81.0-99.0); MEAN PLATELET VOLUME 9.4 fL (7.9-10.8); MONOCYTES # (AUTO) 0.9 10^3/uL (0.0-1.0); MONOCYTES % (AUTO) 8.8 %; NEUTROPHILS # (AUTO) 7.4 10^3/uL (1.5-6.6); NEUTROPHILS % (AUTO) 75.6 %; PLT - PLATELET COUNT 206 10^3/uL (130-450); RED BLOOD COUNT 4.31 10^6/uL (4.20-5.40); RED CELL DISTRIBUTION WIDTH 13.7 % (12.0-15.0); WHITE BLOOD COUNT 9.8 x10^3/uL (4.8-10.8)
[2018-03-08] MEDS ORDERED: NIFEdipine ER 30 MG TABLET PO ONE (21:39)
[2018-03-08] MEDS: BACLOFEN 10 MG TABLET PO SCH ×2 (21:41→23:50)
[2018-03-08] MEDS: ONDANSETRON 4 MG/2 ML VIAL IVP PRN (22:08)
[2018-03-08] MEDS: oxyCODONE 5 MG TABLET PO PRN (22:56)
[2018-03-08] MEDS: ZOLPIDEM 5 MG TABLET PO PRN (22:56)
[2018-03-08] MEDS: PRENATAL VITAMIN TABLET PO SCH (22:58)
--- NOTE | 2018-03-08 23:16 | Ultrasound Report ---
Procedure Date: 03/08/2018 Accession Number: [id number] / [id number] Procedure: US - OB Limited CPT Code: FULL RESULT: EXAM: LIMITED OBSTETRICAL ULTRASOUND EXAM DATE: 03/08/2018 11:02 PM. CLINICAL HISTORY: Fall on abdomen. COMPARISON: 02/12/2018. TECHNIQUE: Real-time sonographic evaluation of the fetus performed by the alarm mechanism adjuster. Multiple senior patient account representative static images were saved for review. DATING: Established EGA 36 weeks 3 days with YAMILETH 04/05/2018. GENERAL EVALUATION Lehman . Cardiac activity: 150 bpm. movement: Visualized. Presentation: Cephalic. Placenta: Anterior position. There is a 5.5 x 1.4 x 1.5 cm hypoechoic collection under the fundal portion of the placenta, compatible with abruption. Amniotic fluid: Normal. BIJAN 21.4 cm. MVP 9.8 cm. ANATOMY Not assessed. MATERNAL STRUCTURES The cervix measures 4.2 cm, and is closed. IMPRESSION: 1. Lehman live intrauterine with gestational age 36 weeks 3 days based on established YAMILETH. 2. Hypoechoic 5.5 x 1.5 x 1.4 cm collection under the fundal portion of the placenta, compatible with abruption. Critical result: Results called to Dr. Rivero on 03/08/2018 at 11:15 PM. NUZHAT
[2018-03-08] MEDS: LACTATED RINGERS 1,000 ML IV SCH (23:50)
--- NOTE | 2018-03-09 02:02 | HISTORY & PHYSICAL EXAMINATION ---
DATE OF SERVICE: 03/08/2018 Physician: Rebecca Rivreo DO FACOG IDENTIFICATION: This is a 22-year-old G1, P0 with 36-3/7-week intrauterine . EDC is 04/02/2018 based on ultrasound performed on 09/16/2017. HISTORY OF PRESENT ILLNESS: The patient is a patient of [facility] who presented to [facility] on 03/08/2018. Unfortunately, the patient was at her home this evening and felt that her left hip gave out. This resulted in the patient falling directly on her abdomen in her closet. She stated the baby did not move initially but then started moving normally. The patient denied any vaginal bleeding or loss of fluid. She is feeling some pain in her lower abdomen as well as her back. The patient states that this has been a difficult for her and that she is having contractions and is on nifedipine 10 mg 1 tab p.o. q.6 hours. In addition, she did receive betamethasone at 33 weeks' gestation. More recently, however, the patient feels that her lower extremities have been unstable due to the . She feels very unstable walking to do her daily activities of living. The patient's mother from [place] actually spoke to me on the telephone asking for the patient to be induced at this time. This evening, though, the patient is not feeling well. With respect to the fall , the baby looks good. Nonstress test is reactive, category 1. There are no decelerations. In addition, the patient is having irregular contractions, but they are rare. Baseline is in the 130s to 140s. PAST MEDICAL HISTORY: Unremarkable. She denies any diabetes, hypertension or thyroid disorder. PAST SURGICAL HISTORY: None. ALLERGIES: TYLENOL, IN WHICH SHE HAS URTICARIA. SOCIAL HISTORY: She denies any current tobacco, although she quit in July 2017. She was smoking cigarettes, in which she used 3-4 cigarettes per day. She denies any alcohol or illicit drug use. 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 PAST OBSTETRICAL HISTORY: Primigravida. PAST GYNECOLOGICAL HISTORY: She denies any abnormal Pap smears or sexually transmitted diseases. FAMILY HISTORY: Noncontributory. REVIEW OF SYSTEMS: Negative unless otherwise stated. PHYSICAL EXAMINATION VITAL SIGNS: Temperature is 98.2, heart rate 95, blood pressure 124/77, respiratory rate 20, O2 saturation 99% on room air. GENERAL: The patient is a well-developed, well-nourished female in some amount of discomfort due to her fall. She is alert and oriented x3 and very pleasant. HEENT: Within normal limits. CARDIOVASCULAR: Rate is regular. No murmurs or rubs. PULMONARY: Lungs are clear to auscultation bilaterally. ABDOMEN: Gravid. There is no tenderness on examination. There are no signs of ecchymosis. LABORATORY DATA: Reveal she is GC/CT negative and normal. Serum integrated screen was negative as well. Her blood type is A positive, and antibody screen is negative. She is rubella immune and syphilis nonreactive, as well as HIV nonreactive. She is negative for hepatitis B and C. She is also negative for hepatitis A. GBS was negative at 25 weeks on 12/18/2017. One -hour GTT was 95, and a GBS screening on 02/13/2018 at 33 weeks' gestation was also negative. ASSESSMENT 1. A 22-year-old G1, P0 with 36-3/7-week intrauterine . 2. Status post abdominal trauma secondary to ground-level fall. 3. Status post betamethasone at 33 weeks' gestation secondary to contractions. PLAN 1. We will admit to the hospital for overnight observation. My main concern is placenta abruption as well as labor. It is reassuring, however, that the patient did get betamethasone at 33 weeks' gestation should this baby be delivered at this time. 2. We will obtain a limited OB ultrasound to evaluate the placenta. 3. We will get a cell screening to evaluate for possible abruption. TD: 03/08/2018 21:21 BI
[2018-03-09] MEDS: LACTATED RINGERS 1,000 ML IV SCH (06:05)
[2018-03-09] MEDS: oxyCODONE 5 MG TABLET PO PRN ×3 (06:34→22:11)
[2018-03-09] MEDS: BACLOFEN 10 MG TABLET PO SCH ×3 (07:49→22:12)
[2018-03-09] MEDS ORDERED: PRENATAL VITAMIN TABLET PO SCH (09:00)
[2018-03-09] MEDS: PRENATAL VITAMIN TABLET PO SCH (09:14)
[2018-03-09] MEDS: NIFEdipine ER 30 MG TABLET PO SCH (09:14)
--- NOTE | 2018-03-09 11:25 | PROVIDER PROGRESS NOTE ---
Subjective - Prog Note Date Prog Note Date: 03/09/18 Prog Note Time: 11:22 - Subjective Pt reports feeling: No change Subjective: Lying in bed, multiple pillows used to prop her up. Per RN, oxycodone not helping a lot with pain. Cannot take tylenol since allergic and cannot take NSAIDs due to the third trimester. Good FM, no VB nor LOF. Still having irregular contractions. No overnight events. Very tearful and verbalizes her desire to be delivered. Mom and dad in [place]. FOB not involved. Dad may be able to take a flight here if Dajond delivers in the near future. Objective - Vital Signs/Intake & Output Reviewed Vital Signs: Yes Vital Signs: Vital Signs x48h Temp Pulse Pulse Resp BP Pulse Ox 03/09/18 08:12 97.7 F 112 H 19 118/68 100 03/09/18 06:28 97.9 F 73 15 96/50 L 100 03/09/18 04:18 97.9 F 78 16 112/71 100 Intake & Output: Intake & Output 03/06/18 03/07/18 03/08/18 03/09/18 23:59 23:59 23:59 23:59 Intake Total 937.5 Balance 937.5 - Objective General Appearance: positive: No acute distress Abdomen: positive: Non-tender (Gravid, no signs of ecchymosis) Comments/Other: NST reactive and category 1. Baseline 130's. No decels. Irregular contractions, > Q 5 min. CVE deferred. - Lab Results Fish Bones: 03/08/18 21:05 Other Labs: Lab Results x24hrs 03/08/18 03/08/18 Range/Units 21:05 21:05 WBC 9.8 (4.8-10.8) x10^3/uL RBC 4.31 (4.20-5.40) 10^6/uL Hgb 10.4 L (12.0-16.0) g/dL Hct 32.2 L (37.0-47.0) % MCV 74.8 L (81.0-99.0) fL MCH 24.1 L (27.0-31.0) pg MCHC 32.3 (32.0-36.0) g/dL RDW 13.7 (12.0-15.0) % Plt Count 206 (130-450) 10^3/uL MPV 9.4 (7.9-10.8) fL Neut # (Auto) 7.4 H (1.5-6.6) 10^3/uL Lymph # (Auto) 1.4 L (1.5-3.5) 10^3/uL [place] # (Auto) 0.9 (0.0-1.0) 10^3/uL Eos # (Auto) 0.0 (0.0-0.7) 10^3/uL Baso # (Auto) 0.1 (0.0-0.1) 10^3/uL Absolute Nucleated RBC 0.01 x10^3/uL Nucleated RBC % 0.1 /100WBC Blood Type A POSITIVE Antibody Screen NEGATIVE Assessment/Plan - Problem List (1) Placenta abruptio, antepartum Impression: 22 yo with a 36w4d IUP S/p ground level fall 03/08/2018 Placenta abruption noted on 03/08/2018 limited OB U/S. 5.5 x 1.4 x 1.5 cm hypoechoic collection under the fundal portion of the placenta, compatible with abruption. BIJAN 21.4, MVP 9.8 cm. Cervical length 4.2 cm, closed. A positive Reassuring and maternal status Poor control of musclesketal pain. Cannot use NSAIDs nor APAP. D/w patient main concern is to monitor placenta abruption. No S/s of or maternal compromise. Given U/S findings, will monitor the patient for at least [address] Finney (on-call peds) and Edward Howard (anesthesia on-call) notified. Patient feels her instability due to left hip pain. PT has seen Maren today and Maren is doing better using a front wheel walker. Pain improved. Rx for front wheel walker written. I attempted to reach Dr. Dumont but he is not education administrator this weekend. Maren's primary OB is Dr. Dumont, who should be managing her care. If I were her primary OB, and her instability continues, I would consider delivery at 37 weeks (term gestation). I discussed this with Maren who is still very frustrated as she desires delivery at this time. I told her the risks outweigh the benefits ( increased risk of prematurity <37 wks). Await results of FMB flow cytometry, lab send out.
[2018-03-09] MEDS ORDERED: SODIUM CHLORIDE FLUSH 0.9% 10 ML SYRINGE ONE ×2 (11:52→16:03)
[2018-03-09] MEDS: ONDANSETRON 4 MG/2 ML VIAL IVP PRN (16:06)
[2018-03-09 17:43] LABS: BASOPHILS % (AUTO) 0.3 %; EOSINOPHILS % (AUTO) 0.3 %; HGB - HEMOGLOBIN 10.2 g/dL (12.0-16.0); LYMPHOCYTES # (AUTO) 1.4 10^3/uL (1.5-3.5); LYMPHOCYTES % (AUTO) 14.1 %; MEAN CORPUSCULAR HEMOGLOBIN 24.3 pg (27.0-31.0); MEAN CORPUSCULAR HGB CONC 32.3 g/dL (32.0-36.0); MEAN CORPUSCULAR VOLUME 75.2 fL (81.0-99.0); MEAN PLATELET VOLUME 8.5 fL (7.9-10.8); MONOCYTES # (AUTO) 0.7 10^3/uL (0.0-1.0); MONOCYTES % (AUTO) 7.7 %; NEUTROPHILS # (AUTO) 7.6 10^3/uL (1.5-6.6); NEUTROPHILS % (AUTO) 77.6 %; PLT - PLATELET COUNT 182 10^3/uL (130-450); RED BLOOD COUNT 4.18 10^6/uL (4.20-5.40); RED CELL DISTRIBUTION WIDTH 13.4 % (12.0-15.0); WHITE BLOOD COUNT 9.8 x10^3/uL (4.8-10.8)
[2018-03-09] MEDS: ZOLPIDEM 5 MG TABLET PO PRN (22:15)
[2018-03-10] MEDS ORDERED: SODIUM CHLORIDE FLUSH 0.9% 10 ML SYRINGE ONE ×2 (05:03→05:18)
[2018-03-10] MEDS: LACTATED RINGERS 1,000 ML IV SCH (05:06)
[2018-03-10 06:15] VITALS: BP 126/68
[2018-03-10] MEDS: BACLOFEN 10 MG TABLET PO SCH ×2 (06:16→08:22)
[2018-03-10] MEDS ORDERED: ALBUTEROL NEB 2.5 MG/3 ML INH PRN (07:14)
[2018-03-10] MEDS: NIFEdipine ER 30 MG TABLET PO SCH (08:21)
[2018-03-10] MEDS: PRENATAL VITAMIN TABLET PO SCH (08:22)
--- NOTE | 2018-03-10 08:32 | PROVIDER PROGRESS NOTE ---
Subjective - Prog Note Date Prog Note Date: 03/10/18 Prog Note Time: 08:29 - Subjective Pt reports feeling: No change Subjective: Patient lying in bed. Slept and moderate quality. Baby moving. No VB nor LOF. Still having irregular contractions. Still having muscleskeletal pain. Using the RNs to ambulate to the restroom and not the walker. No overnight events per RN. Objective - Vital Signs/Intake & Output Reviewed Vital Signs: Yes Vital Signs: Vital Signs x48h Temp Pulse Pulse Resp BP BP Pulse Ox 03/10/18 06:00 97.7 F 63 16 126/68 100 03/10/18 04:32 97.5 F L 55 L 16 114/63 98 03/10/18 02:32 97.7 F 74 16 107/63 99 03/10/18 00:45 98.1 F 67 17 108/60 99 Intake & Output: Intake & Output 03/07/18 03/08/18 03/09/18 03/10/18 23:59 23:59 23:59 23:59 Intake Total 2687.5 Balance 2687.5 - Objective General Appearance: positive: No acute distress Eyes Bilateral: positive: Normal inspection Abdomen: positive: Non-tender (Gravid. No ecchymosis.) Neurologic/Psychiatric: positive: Oriented x3 Comments/Other: Irregular contractions, >Q6 min. NST baseline 120's with good LVT, category 1. Accels present, no decels. - Lab Results Fish Bones: 03/09/18 17:37 Other Labs: Lab Results x24hrs 03/09/18 Range/Units 17:37 WBC 9.8 (4.8-10.8) x10^3/uL RBC 4.18 L (4.20-5.40) 10^6/uL Hgb 10.2 L (12.0-16.0) g/dL Hct 31.4 L (37.0-47.0) % MCV 75.2 L (81.0-99.0) fL MCH 24.3 L (27.0-31.0) pg MCHC 32.3 (32.0-36.0) g/dL RDW 13.4 (12.0-15.0) % Plt Count 182 (130-450) 10^3/uL MPV 8.5 (7.9-10.8) fL Neut # (Auto) 7.6 H (1.5-6.6) 10^3/uL Lymph # (Auto) 1.4 L (1.5-3.5) 10^3/uL [place] # (Auto) 0.7 (0.0-1.0) 10^3/uL Eos # (Auto) 0.0 (0.0-0.7) 10^3/uL Baso # (Auto) 0.0 (0.0-0.1) 10^3/uL Absolute Nucleated RBC 0.00 x10^3/uL Nucleated RBC % 0.0 /100WBC Assessment/Plan - Problem List (1) Placenta abruptio, antepartum Impression: 22 yo with 36w5d IUP S/p abdominal trauma Stable placenta abruption Since Maren and her baby have been stable >24 hours, will discharge to home. Would recommend induction of labor at 37 weeks but this will be up to her primary OB, Dr. Dumont. Call for S/s abruption, eg increasing contractions, vaginal bleeding, decreased FM. Recommend Dajond use the walker. [phone] Discharge Plan Disposition: Home, Self Care Condition: Good Diet: Regular Activity Restrictions: Wt Bearing as Tolerated Shower Restrictions: No Driving Restrictions: No Assistance Devices: Walker Weight Bearing: Full Weight No Smoking: If you smoke, Please STOP! Call for help.
--- NOTE | 2018-03-10 10:42 | DISCHARGE SUMMARY ---
Physician: Rebecca Rivero DO FACOG DATE OF ADMISSION: 03/08/2018 DATE OF DISCHARGE: 03/10/2018 DIAGNOSES ON ADMISSION 1. A 22-year-old , with 36 and 3/7 week intrauterine . 2. Status post abdominal trauma secondary to ground level fall. 3. Status post betamethasone at 33 weeks gestation secondary to contractions. DISCHARGE DIAGNOSES 1. A 22-year-old G1, P0, with 36 and 5/7 weeks intrauterine . 2. Placenta abruption secondary to ground level fall. 3. Status post betamethasone at 33 weeks gestation secondary to contractions. HISTORY OF PRESENT ILLNESS: This is a patient of [facility]. On the evening of 03/08/2018, the patient states that she was in her home when she felt that her left hip gave out due to pain. She fell directly on her abdomen. Workup revealed that she had normal white count of 9.8. Her H and H stayed stable at about 10 and 31. Platelets were normal at 206. The patient was also given an ultrasound which revealed a 5.5 x 1.4 x 1.5 cm hypoechoic collection in the fundal portion of the placenta, compatible with abruption. BIJAN is 21.4. MVP 9.8. Cervix is closed. A FMB flow cytometry was performed, but it is still pending. She was monitored for greater than 24 hours. The nonstress test was reactive and category 1 throughout the entire hospitalization. There were no decelerations. The patient continued to have her normal contractions. We could not give the patient any good medications for pain as she was ALLERGIC TO ACETAMINOPHEN, and her baby being a third trimester. Muscle relaxants were not helpful. Physical therapy consult was performed, and a walker seemed to help with the patient's pain, as well as ambulation. Given the overall picture, I told the patient that I would wait until she was term before induction of labor. I did understand her concern of feeling unstable when ambulating. The patient is to call should she have any worsening symptoms of placenta abruption such as increasing abdominal pain or contractions , vaginal bleeding or decreased movement. She is to followup with Dr. Dumont, her customer advisor at [facility]. TD: 03/10/2018 08:48 BI
== END 2018-03-10 09:30 | disposition home or self-care (01) ==
LOC: WFO 19:25 → FBP 19:26 → WFO 20:44 → FBP 20:45
PROVIDERS: ADMIT Obstetrics & Gynecology; ATTEND Obstetrics & Gynecology
DX: O9A.213 Injury, poisoning and certain other consequences of external causes complicating pregnancy, third trimester (principal); O45.93 Premature separation of placenta, unspecified, third trimester; O62.8 Other abnormalities of forces of labor; O99.333 Smoking (tobacco) complicating pregnancy, third trimester; F17.211 Nicotine dependence, cigarettes, in remission; Z3A.36 36 weeks gestation of pregnancy; Z91.81 History of falling
CPT/HCPCS: 36415; 76815; 85025; 86850; 86900; 86901; 96361; 96374; 96375; 97161; 99212; A9270; G0378; G8978; G8979; G8980; J7120

== ENCOUNTER 2018-03-11 11:39 | Outpatient (CLI) | payer OTHER | END 2018-03-11 11:40 | disposition critical access hospital (66) | LOC: EMS 11:39 | PROVIDERS: ATTEND Surgery | DX: O99.89 Other specified diseases and conditions complicating pregnancy, childbirth and the puerperium (principal); M79.605 Pain in left leg; M79.604 Pain in right leg; M25.552 Pain in left hip; M25.551 Pain in right hip; W18.2XXA Fall in (into) shower or empty bathtub, initial encounter; Y92.031 Bathroom in apartment as the place of occurrence of the external cause | CPT/HCPCS: A0425; A0429 ==

== ENCOUNTER 2018-03-11 12:00 | Emergency (ER) | payer OTHER ==
[2018-03-11 12:14] VITALS: BP 99/72
--- NOTE | 2018-03-11 12:48 | ED Physician Documentation ---
History of Present Illness - Stated complaint Stated Complaint: GLF/ 37 WEEKS - Chief complaint Chief Complaint: Ext Problem - History obtained from History obtained from: Patient - History of Present Illness Timing: Today Pain level max: 6 Pain level now: 2 Improved by: nothing Worsened by: nothing - Additonal information Additional information: Patient is a 22-year-old female, 37 weeks who states that she slipped and fell in the shower today. Did not injure herself, but is now feeling contractions in her abdomen. No vaginal bleeding. Has had pain in her legs and back since she fell a few days ago. Was observed in OB and did have a placental abruption at that time. No new injuries today. Did not strike her head. No loss of consciousness. 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 : None HEENT: None Psych: None Musculoskeletal: None Derm: None - Past Surgical History Past Surgical History: Yes General: Appendectomy /OPTICAL DESIGN ENGINEER: Other - Present Medications Home Medications: Ambulatory Orders Medication Instructions Recorded Confirmed Albuterol Sulf [Ventolin Hfa 1 - 2 puffs INH Q4HR PRN #1 inhaler 09/08/17 Inhaler] Vitamin [Trinatal Rx 1] 1 each PO DAILY 09/20/17 03/09/18 NIFEdipine [Nifedipine] 10 mg PO Q6H 03/09/18 03/09/18 - Allergies Allergies/Adverse Reactions: Allergies Allergy/AdvReac Type Severity Reaction Status Date / Time acetaminophen Allergy Severe Anaphylaxis Verified 09/20/17 14:43 - Social History Does the pt smoke?: No Smoking Status: Never smoker Does the pt drink ETOH?: No Does the pt have substance abuse?: No - Immunizations Immunizations are current?: Yes PD ED PE NORMAL - Vitals Vital signs reviewed: Yes - General General: Alert and oriented X 3, Well developed/nourished, Other (appears uncomfortable, holding her abdomen) - HEENT HEENT: Atraumatic, PERRL, Moist mucous membranes - Neck Neck: Supple, no meningeal sign, No bony TTP - Cardiac Cardiac: RRR, Strong equal pulses - Respiratory Respiratory: No respiratory distress, Clear bilaterally - Abdomen Abdomen: Soft, Non tender, Non distended - Back Back: No CVA TTP, No spinal TTP - Derm Derm: Warm and dry - Extremities Extremities: No deformity, No tenderness to palpate, No edema, No calf tenderness / cord - Neuro Neuro: Alert and oriented X 3, materials mgmt tech 2-12 intact, No motor deficit, No sensory deficit - Psych Psych: Normal mood, Normal affect Results - Vitals Vitals: Vital Signs - 24 hr 03/11/18 12:09 Temperature 36.5 C Heart Rate 85 Respiratory 16 Rate Blood Pressure 99/72 O2 Saturation 100 Oxygen O2 Source [Without Activity] Room air O2 Source Room air PD MEDICAL DECISION MAKING - ED course Complexity details: reviewed old records, considered differential, d/w patient, d/w family, d/w food consultant ED course: Discussed with Dr. Leyva, OB and will send to OB for further evaluation. - Sepsis Event Vital Signs: Vital Signs - 24 hr 03/11/18 12:09 Temperature 36.5 C Heart Rate 85 Respiratory 16 Rate Blood Pressure 99/72 O2 Saturation 100 Oxygen O2 Source [Without Activity] Room air O2 Source Room air Departure - Departure Disposition: ED Place in Observation Clinical Impression: 37 weeks gestation of , Placenta abruptio, antepartum Fall Qualifiers: Encounter type: initial encounter Qualified Code(s): W19.XXXA - Unspecified fall, initial encounter Condition: Stable
[2018-03-11 14:06] LABS: BASOPHILS % (AUTO) 0.4 %; EOSINOPHILS % (AUTO) 0.2 %; HGB - HEMOGLOBIN 10.3 g/dL (12.0-16.0); LYMPHOCYTES # (AUTO) 1.3 10^3/uL (1.5-3.5); MEAN CORPUSCULAR HEMOGLOBIN 24.3 pg (27.0-31.0); MEAN CORPUSCULAR HGB CONC 32.6 g/dL (32.0-36.0); MEAN CORPUSCULAR VOLUME 74.5 fL (81.0-99.0); MONOCYTES # (AUTO) 0.6 10^3/uL (0.0-1.0); MONOCYTES % (AUTO) 6.7 %; NEUTROPHILS # (AUTO) 7.3 10^3/uL (1.5-6.6); NEUTROPHILS % (AUTO) 78.7 %; PLT - PLATELET COUNT 190 10^3/uL (130-450); RED BLOOD COUNT 4.26 10^6/uL (4.20-5.40); RED CELL DISTRIBUTION WIDTH 13.7 % (12.0-15.0); WHITE BLOOD COUNT 9.2 x10^3/uL (4.8-10.8)
[2018-03-11 14:28] LABS: ALBUMIN 2.9 g/dL (3.2-5.5); ALBUMIN/GLOBULIN RATIO 0.8 (1.0-2.2); BILIRUBIN,TOTAL 0.7 mg/dL (0.2-1.0); CALCIUM 8.9 mg/dL (8.5-10.3); CREATININE 0.5 mg/dL (0.4-1.0); TOTAL PROTEIN 6.4 g/dL (6.7-8.2)
--- NOTE | 2018-03-11 14:47 | Ultrasound Report ---
Procedure Date: 03/11/2018 Accession Number: [id number] / [id number] Procedure: US - OB Limited CPT Code: FULL RESULT: EXAM: LIMITED OBSTETRICAL ULTRASOUND EXAM DATE: 03/11/2018 02:07 PM. CLINICAL HISTORY: Fall, viability, placental abruption. COMPARISON: 03/08/2018. TECHNIQUE: Real-time sonographic evaluation of the fetus performed by the computer console operator. Multiple traveling representative static images were saved for review. Established EGA: 36 weeks 3 days YAMILETH 04/05/2018 GENERAL EVALUATION Lehman . Cardiac activity: 150 bpm. movement: Present. Presentation: Cephalic. Placenta: Anterior position. Stable-appearing 5.5 x 1.4 x 1.5 hypoechoic heterogeneous avascular region under the fundal placenta consistent with an abruption, stable. Amniotic fluid: Normal. BIJAN 21.4 cm. MVP 9.8 cm. ANATOMY: Not assessed IMPRESSION: 1. Lehman intrauterine with cardiac activity 150 BPM 2. Stable appearance of the known placental abruption. RADIA
== END 2018-03-11 13:02 ==
LOC: EDUNIT# → ED 12:00
DX: O45.93 Premature separation of placenta, unspecified, third trimester (principal); Z3A.37 37 weeks gestation of pregnancy; Z91.81 History of falling
CPT/HCPCS: 36415; 76815; 80053; 83690; 85025; 99283; 99284

== ENCOUNTER 2018-03-11 13:04 | Observation (INO) | payer OTHER ==
[2018-03-11] MEDS: oxyCODONE 5 MG TABLET PO PRN (20:26)
[2018-03-11] MEDS: ZOLPIDEM 5 MG TABLET PO PRN (20:26)
--- NOTE | 2018-03-12 00:12 | HISTORY & PHYSICAL EXAMINATION ---
DATE OF SERVICE: 03/11/2018 Physician: Michael Leyva MD DIAGNOSES 1. Ground Level Falls x2. 2. Partial abruption of placenta, (approximately 5 cm, stable) . 3. Multiple bouts of syncope during . 4. Hip pain and associated lower extremity instability. 5. Status post betamethasone at 33 weeks due to contractions Patient is a 22-year-old primigravida at 36 weeks and 5 days gestation with an EDC of 07/10/2018 based on 9 wk US who routinely receives her care at the [facility] with Dr. Dumont and Dr. Aquino. She presents to the ED after a fall in her shower earlier today that did not result in abdominal or head trauma. She complains of uterine contractions. HISTORY OF PRESENT ILLNESS: While showering, the patient took another fall due to left hip pain and instability. My left leg valorie due to hip pain. The fall did not involve an abdominal contact or blow to the head. There was no antecedent or subsequent loss of consciousness. Patient currently notes contractions about every 5 minutes without any suspicion of leakage of fluid or vaginal bleeding. As expected due to known abruption, her uterus is still reported as being tender near the fundus. I evaluated today's ultrasound films with the prior hospitalization films with the radiologist. The size of the abruption is almost identical and there are no Doppler changes to indicate expansion. Patient was initially evaluated in the emergency room and there was no evidence of fracture, neurologic event or abdominal injury. Reference Dr. Diane's notes. 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 She has been seen multiple times at the [facility] for a variety of complaints including syncopal episodes after about 12 weeks that had a subsequent workup with Dr. Hernandez. They did not find any cardiac cause. labor at 33 weeks after an unobserved syncopal episode that was subsequently treated with nifedipine and a course of betamethasone. A recent fall with trauma to her abdomen, workup performed by Dr. Rivero. This fall was ground level and due to lower extremity instability and left hip pain. As a result of the fall, she developed a 5 cm stable abruption. During that hospitalization, she received an evaluation by Physical Therapy. She was discharged with a walker. Baseline OB labs: Integrated screen normal; blood type A positive, antibody screen negative; Rubella immune; RPR negative; HIV negative; hepatitis A, B and C negative; 1-hour glucose challenge test 95; GBS culture at 33 weeks was negative. PAST MEDICAL HISTORY: Patient denies chronic disease history. However, she does have an active prescription for albuterol inhaler. Patient denies neurologic disease, diabetes, hypertension, cardiac disease, or thyroid problems. PAST SURGICAL HISTORY: In 2014, laparoscopic appendectomy in [place], [place]. In December 2016, laparoscopic lysis of adhesions by Dr. Rivero. ALLERGIES: ACETAMINOPHEN CAUSES HIVES AND ANAPHYLACTOID REACTION. MEDICATIONS 1. vitamins. 2. Albuterol p.r.n. 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 Single. She states that she lives in a safe environment and has not been abused. She denies alcohol use during with no drug use ever. Father of the baby is currently not involved. FAMILY HISTORY: No reported neurologic diseases. No reported female cancers. REVIEW OF SYSTEMS CONSTITUTIONAL: No recent fevers, chills, or syncopal episodes. HEENT: Denies tinnitus, vertigo, rhinorrhea, congestion, sore throat, or difficulty swallowing. CARDIOVASCULAR: Denies chest pain, irregular heartbeat, or pressure. RESPIRATORY: Occasional cough but nonproductive. No shortness of breath or pleuritic pain. GASTROINTESTINAL: Denies nausea, vomiting, diarrhea, constipation. SKIN: No lesions, wounds, or rashes. MUSCULOSKELETAL: Patient reports continued left hip pain, particularly on the left side that makes standing and walking difficult. NEUROLOGIC: Patient denies focal weakness, numbness, sensory changes, vertigo, headache, or a history of neurologic disease. PHYSICAL EXAMINATION GENERAL: Patient is lying comfortably flat in bed surrounded by friends. Cooperative, alert. VITAL SIGNS: Temperature 98.6, heart rate 64, blood pressure 113/67, respirations 18, oxygen sat 100% on room air. HEENT: Head atraumatic without obvious trauma. EOMI; nonicteric sclerae. Dentition in good repair. NECK: Supple neck. No thyromegaly. HEART: Regular. No murmur, no gallop. LUNGS: Clear to auscultation. BREASTS: Deferred. ABDOMEN: Nondistended. No organomegaly. No discrete abdominal tenderness. UTERUS: Appropriate size. Mild tenderness in the fundus, particularly towards the right, not exquisite; minimal palpable contractions. ELECTRONIC MONITOR: Heart tones 120s-130s, variability maintained. No decels are noted. Moderate variability; every 6-minute to 8-minute contractions noted, but they palpate mild to minimal. EXTERNAL GENITALIA: No lesions. Normal hair distribution. VAGINA: No blood or discharge. CERVIX: Long, thick, closed, soft consistency, mid position, -2 Station. No cervical motion tenderness and no blood. EXTREMITIES: Normal movement in upper extremities; lower extremities more difficult to evaluate because patient was limited to bed. There is both right and left hip pointer pain. No obvious muscle wasting. NEUROLOGIC: Cranial nerves grossly intact; patellar reflexes right and left 2+ and equal. No clonus. SKIN: No lesions or rash seen. LABORATORY DATA: Hemoglobin 10.3, platelets 190; urinalysis normal without blood; sodium 1.36, potassium 3.4, creatinine 0.5, glucose 74; hold tube sent to the blood bank in case transfusion becomes necessary. ASSESSMENT: Patient was closely observed for several hours and there were no clinical signs of expansion of her underlying abruption or concerning EFM tracing changes. The initiating cause for abruption was a her first fall on 08 March that was secondary to the lower leg instability and hip pain. She was given a walker and sent home to follow up at the [facility]. Reference Dr. Rivero's detailed discharge note. Within 24 hours, she suffered another fall due to joint pain and instability that did not result in a repetitive abdominal blow or major trauma. The abruption has been evaluated and thought to be stable. Original plans were to consider induction in the near future, 37-38 weeks gestation. The abruption poses a problem in terms of the appropriate method for cervical ripening and induction. There is a risk with uterotonics to convert a partial abruption into a total abruption with subsequent emergency. The family and patient are lobbying strongly for induction of labor. In fact, the patient's mother called me from [place] to urge induction. Induction at this point would not be prudent. Discussed case with Dr. Fercho Mullen at [facility]. He believes a cervical ripening agent carried a high danger of converting the partial abruption to a more complete one. He would not induce but would allow augmentation if labor or bleeding occurs. He believes it preferable to let the abruption congeal and 'fibrinize' over the next 2 weeks and possibly plan induction at 39 weeks if desired. If patient does go into labor, use of Pitocin is acceptable with caution. PLAN 1. Expectant management of the abruption. If patient begins to labor, type and cross of at least 2 units may increase the margin of safety. Repeat CBC will be done tomorrow morning. 2. Patient to be reevaluated for potential causes of falls. She denies abuse of alcohol or drug consumption. PT will come and reevaluate. Discussed case with Dr. Clay, internal medicine hospitalist. There is no clearcut cardiovascular cause. Previous echocardiogram and EKG with Dr. Hernandez was normal. We will track patient's cardiac rhythm with telemetry or Holter monitor overnight. 3. Patient will be hospitalized for 1 or 2 days to provide adequate observation time. She has had several unobserved syncopal episodes in the past. We will begin to ambulate and replicate more normal activity to determine if she is safe to go home or presents a continued fall danger. TD: 03/11/2018 19:58 BI
[2018-03-12 08:07] LABS: BASOPHILS % (AUTO) 0.3 %; EOSINOPHILS % (AUTO) 0.5 %; HGB - HEMOGLOBIN 10.1 g/dL (12.0-16.0); LYMPHOCYTES # (AUTO) 1.9 10^3/uL (1.5-3.5); LYMPHOCYTES % (AUTO) 20.6 %; MEAN CORPUSCULAR HEMOGLOBIN 24.4 pg (27.0-31.0); MEAN CORPUSCULAR HGB CONC 32.6 g/dL (32.0-36.0); MEAN CORPUSCULAR VOLUME 74.9 fL (81.0-99.0); MONOCYTES # (AUTO) 0.8 10^3/uL (0.0-1.0); NEUTROPHILS # (AUTO) 6.4 10^3/uL (1.5-6.6); NEUTROPHILS % (AUTO) 69.6 %; PLT - PLATELET COUNT 182 10^3/uL (130-450); RED BLOOD COUNT 4.13 10^6/uL (4.20-5.40); RED CELL DISTRIBUTION WIDTH 13.4 % (12.0-15.0); WHITE BLOOD COUNT 9.2 x10^3/uL (4.8-10.8)
--- NOTE | 2018-03-12 10:59 | PROVIDER PROGRESS NOTE ---
Subjective - Prog Note Date Prog Note Date: 03/12/18 Prog Note Time: 10:48 Objective - Vital Signs/Intake & Output Vital Signs: Vital Signs x48h Temp Pulse Resp BP Pulse Ox 03/12/18 07:45 98.2 F 82 16 120/68 100 - Lab Results Fish Bones: 03/12/18 08:00 Other Labs: Lab Results x24hrs 03/12/18 Range/Units 08:00 WBC 9.2 (4.8-10.8) x10^3/uL RBC 4.13 L (4.20-5.40) 10^6/uL Hgb 10.1 L (12.0-16.0) g/dL Hct 30.9 L (37.0-47.0) % MCV 74.9 L (81.0-99.0) fL MCH 24.4 L (27.0-31.0) pg MCHC 32.6 (32.0-36.0) g/dL RDW 13.4 (12.0-15.0) % Plt Count 182 (130-450) 10^3/uL MPV 9.0 (7.9-10.8) fL Neut # (Auto) 6.4 (1.5-6.6) 10^3/uL Lymph # (Auto) 1.9 (1.5-3.5) 10^3/uL Terrell # (Auto) 0.8 (0.0-1.0) 10^3/uL Eos # (Auto) 0.0 (0.0-0.7) 10^3/uL Baso # (Auto) 0.0 (0.0-0.1) 10^3/uL Absolute Nucleated RBC 0.01 x10^3/uL Nucleated RBC % 0.1 /100WBC Assessment/Plan - Problem List (1) Placenta abruptio, antepartum Impression: 22 yo with a 37w0d IUP. Stable placenta abruption. S/p fall in the shower 03/11/2018. Reassuring and maternal status. (NST reactive, category 1, no decels. Irregular contracations.) S/p ground level fall x 2 in last 5 days. Unclear as to the etiology of why she is falling. Appreciate Dr. Clay evaluating for cardiac etiologies. Await PT's evaluation and treatment plan. Per [facility]'s recommendations, will wait for placenta to heal. Possible induction at 39 weeks. Difficult position since the patient's cervix if nonfavorable. Cervical ripening not recommended as it may worsen the abruption. Also pitocin is to be used cautiously as it may also worsen the abruption. Will monitor to watch for or maternal instability.
[2018-03-12] MEDS ORDERED: SODIUM CHLORIDE FLUSH 0.9% 10 ML SYRINGE ONE ×2 (11:12→16:45)
[2018-03-12] MEDS: oxyCODONE 5 MG TABLET PO PRN ×3 (12:23→20:04)
[2018-03-12] MEDS: PRENATAL VITAMIN TABLET PO SCH (12:23)
--- NOTE | 2018-03-12 13:53 | PROVIDER PROGRESS NOTE ---
Subjective - Prog Note Date Prog Note Date: 03/12/18 Prog Note Time: 13:37 - Subjective Pt reports feeling: No change Subjective: Jacjocathleen just finished with PT. Maren is still feeling pain in her left hip. States dad from [place] is flying here and will arrive shortly. Three friends visiting at bedside with a toddler. Per RN 2.5 mg of oxycodone has not helped. Denies VB, contractions or LOF. Objective - Vital Signs/Intake & Output Vital Signs: Vital Signs x48h Temp Pulse Resp BP Pulse Ox 03/12/18 12:24 97.7 F 75 16 118/62 100 03/12/18 07:45 98.2 F 82 16 120/68 100 - Objective General Appearance: positive: No acute distress Abdomen: positive: Tenderness (Mild fundal tenderness. Gravid.) Skin: positive: Color nml Neurologic/Psychiatric: positive: Oriented x3 - Lab Results Fish Bones: 03/12/18 08:00 Other Labs: Lab Results x24hrs 03/12/18 03/11/18 Range/Units 08:00 13:51 WBC 9.2 (4.8-10.8) x10^3/uL RBC 4.13 L (4.20-5.40) 10^6/uL Hgb 10.1 L (12.0-16.0) g/dL Hct 30.9 L (37.0-47.0) % MCV 74.9 L (81.0-99.0) fL MCH 24.4 L (27.0-31.0) pg MCHC 32.6 (32.0-36.0) g/dL RDW 13.4 (12.0-15.0) % Plt Count 182 (130-450) 10^3/uL MPV 9.0 (7.9-10.8) fL Neut # (Auto) 6.4 (1.5-6.6) 10^3/uL Lymph # (Auto) 1.9 (1.5-3.5) 10^3/uL Mellette # (Auto) 0.8 (0.0-1.0) 10^3/uL Eos # (Auto) 0.0 (0.0-0.7) 10^3/uL Baso # (Auto) 0.0 (0.0-0.1) 10^3/uL Absolute Nucleated RBC 0.01 x10^3/uL Nucleated RBC % 0.1 /100WBC Blood Type A POSITIVE Antibody Screen NEGATIVE Assessment/Plan - Problem List (1) Placenta abruptio, antepartum Impression: 22 yo with a 37w0d IUP Stable placenta abruption. Reassuring and maternal status. Fetus is reactive, category 1 and accels. No decels. Stable H/H. Still awaiting results of FMB flow cytometry from 03/08/2018. Per PT, patient has a left hip rotational problem, possibly due to the uterus compressing pelvic nerves. PT exercises may help. Peanut ball given to her for exercises. Patient not placing enough weight on her arms when using the walker. Will order SI belt and shower chair. Cannot use NSAIDs due to 3rd trimester ( may close the ductus arteriosus). Patient's case briefly discussed by Dr. Leyva with KARTIK Bains at [facility], via phone call. He recommends that the patient wait until 39 weeks for delivery. Would not use cervical ripening agents (eg prostaglandins) as they may worsen the abruption and recommends caution with pitocin. Medicine consult by Dr. Clay does not reveal any gross medical issues RE cardiac or neurologic disorders. I discussed with Maren that we would monitor her for a prolonged period of time again to monitor the baby and herself. Will set up outpatient PT and get her a sacroiliac belt. She should have a in person consult with Don with recommendations of when to deliver and the mode of delivery, all assuming she and the baby are reassuring. I spoke to Maren that though she may well have a delivery if either she or the baby become unstable. However, an elective delivery at this time may worsen her current current situation as she would recover from an abdominal incision in addition to her hip pain.
--- NOTE | 2018-03-12 16:27 | CONSULTATION NOTE ---
Referring Provider Name of Referring Provider:: Michael Leyva MD Consult Date: 03/12/18 Chief Complaint - Chief Complaint Chief Complaint: Fall History of Present Illness - History Obtained From Records Reviewed: Yes History obtained from: Patient and medical records Exam Limitations: None - History of Present Illness HPI Comment/Other: Patient is a 22-year-old female who is 36 weeks and 6 days gestation with an estimated date of conception of 07/10/2018 based on a 9 week ultrasound who routinely receives her care at the [facility] clinic with Dr. Dumont and Dr. Aquino and presented to the emergency department with a fall. The patient was admitted earlier in her on September 26, 2017 to the medical service for syncopal episode. At that time the patient was having issues with severe nausea and vomiting and appeared to have passed out after becoming dehydrated. She had recurrent episodes of syncope and therefore was placed in observation and underwent further evaluation. At that time the patient underwent an echocardiogram which showed a normal ejection fraction and no hemodynamically significant cardiac valve disease. The patient was monitored on telemetry and had no abnormal findings on telemetry. The patient had no further episodes during the hospitalization and was discharged home the following day. The patient states that she has struggled with her and did have extensive nausea and has recently developed weakness. She states that she has had 2 falls prior to presenting to the emergency department yesterday. She states that she had a fall on 03/08/2018 at home. Patient she states that she was walking in the hallway when she states that her left leg gave out and she fell onto her abdomen. She states that she has been having some pain in her left hip especially with transfer and walking. She states that the pain does radiate up into her lower back. She states that she is able to stand and she is able to walk but at times she feels her left leg give out on her. She came to the emergency room on 03/08/2018 and was evaluated with an obstetrics ultrasound which revealed a hypoechoic 5.5 x 1.5 x 1.4 cm collection under the fundal portion of the placenta compatible with abruption. After returning home she again had another fall on 03/11/2018 this time landing on her back.. She states again that her left leg gave out on her and she fell onto her back. This time the patient did present to the emergency department. She was evaluated in the emergency department and found to have persistent partial abruption of her placenta and was admitted by the obstetrics and gynecology team. Dr. Leyva has now consulted us for evaluation of her recurrent falls. The patient was placed on telemetry overnight. She states that she did not have any syncopal episodes with her most recent falls. She states she did not hit her head. She states that she did not have any chest pain or palpitations. She states that she did not feel lightheaded or dizzy prior to the falls. She states that she continues to have pain in her left hip especially with lifting her left leg. She does state that the pain is positional. She does not appear to have any rash or swelling in the left leg. The patient denies any chest pain. The patient did not have any events on telemetry overnight. Patient denies any headache, blurred vision, runny nose, sore throat, nasal congestion, difficulty swallowing, orthopnea, PND, abdominal pain, nausea, vomiting, diarrhea, constipation, joint swelling, neck stiffness, changes in appetite, recent unintentional weight loss or any focal neurologic deficits. The patient was evaluated by physical therapy this morning and was found to be favoring that left hip and left leg. She appeared to have difficulty with ambulation. It was determined that the patient likely was having compression of her sciatic nerve due to the developing uterus. This is a common occurrence in and the physical therapist recommended pelvic floor PT for the patient. On examination the patient did not appear to have any focal neurologic deficits. History - Past Medical History Cardiovascular: reports: None Respiratory: reports: None Endocrine/Autoimmune: reports: None GI: reports: None PROCESSING SPEC: reports: Other : reports: None HEENT: reports: None Psych: reports: None Musculoskeletal: reports: Other Derm: reports: None MRSA Hx?: No - Past Surgical History General: reports: Appendectomy /PROCESSING SPEC: reports: Other - Family & Social History Family History Comment/Other: The patient has no family history of diabetes, hypertension, cancer or coronary artery disease. The patient does state that her grandmother and her mother had very difficult pregnancies. She states that they both ended up being bedbound for much of their . They both had to have C-sections. Living arrangement: At home Living Situation: With family Social History Notes: The patient lives in [place] and is in the [place]. She has support from her family including her cousin who is at bedside. This is the patient's first . She is a non-smoker, she does not drink alcohol or use any illicit drugs. - Substance History Use: Uses substance without health or social issues: NONE - POLST Patient has POLST: No POLST Status: Full Code Meds/Allgy - Home Medications Home Medications: Ambulatory Orders Medication Instructions Recorded Confirmed Albuterol Sulf [Ventolin Hfa 1 - 2 puffs INH Q4HR PRN #1 inhaler 09/08/17 Inhaler] Vitamin [Trinatal Rx 1] 1 each PO DAILY 09/20/17 03/09/18 NIFEdipine [Nifedipine] 10 mg PO Q6H 03/09/18 03/09/18 - Allergies Allergies/Adverse Reactions: Allergies Allergy/AdvReac Type Severity Reaction Status Date / Time acetaminophen Allergy Severe Anaphylaxis Verified 09/20/17 14:43 khan AdvReac Hives Verified 03/11/18 17:05 Review of Systems - Other Findings Other Findings: A comprehensive review of systems was performed the pertinent positives and negatives are stated above in the HPI and the remainder of the review of systems is negative. Exam - Vital Signs Reviewed Vital Signs: Yes Vital Signs: Vital Signs x48h Temp Pulse Resp BP Pulse Ox 03/12/18 16:18 37.4 C 60 16 116/58 L 100 03/12/18 12:24 36.5 C 75 16 118/62 100 - Physical Exam General Appearance: positive: No acute distress, Alert Eyes Bilateral: positive: Normal inspection, PERRL, EOMI, No lid inflammation, Conjunctivae nml, No scleral icterus ENT: positive: ENT inspection nml, Pharynx nml, No signs of dehydration. negative: Purulent nasal drainage Neck: positive: Nml inspection, Thyroid nml, No JVD, Trachea midline. negative : Thyromegaly, Lymphadenopathy (R), Lymphadenopathy (L), Stiff neck, Carotid bruit, Tracheal deviation Respiratory: positive: Chest non-tender, No respiratory distress, Breath sounds nml. negative: Wheezes, Rales, Rhonchi Cardiovascular: positive: Regular rate & rhythm, No murmur, No gallop Peripheral Pulses: positive: 2+ Abdomen: positive: Non-tender, No organomegaly, Nml bowel sounds, Other ( Distended abdomen.) Back: positive: Nml inspection. negative: CVA tenderness (R), CVA tenderness (L ) Skin: positive: Color nml, No rash, Warm. negative: Cyanosis, Diaphoresis, Pallor Extremities: positive: Non-tender, Full ROM, Nml appearance, Pedal edema ( Bilateral) Neurologic/Psychiatric: positive: Oriented x3, CN's nml (2-12), Motor nml, Sensation nml, Mood/affect nml Conclusion/Plan - Diagnosis Diagnosis: 1. Recurrent falls. 2. Sciatica. 3. - Plan Plan: 1. It appears the patient's recurrent falls are secondary to sciatica due to compression from the growing uterus. The patient describes symptoms consistent with sciatica and nerve compression. The patient also had pain radiating up her buttocks and into her spine with extension of her left leg. The patient was evaluated by physical therapy who recommended outpatient pelvic floor physical therapy in [place]. Physical therapy also recommended a shower seat for the patient. The patient was also advised to use a walker. The patient appears to be stable as far as pain. We agree with the recommendations of physical therapy. The patient does not appear to have any neurologic deficits. She did not have any syncopal episodes. The patient had no episodes on telemetry and we recommend discontinuation of telemetry. We will defer the rest of the treatment to the obstetrics and gynecology team. We will sign off on the case. - Lab Results Lab results reviewed: Yes Fish Bones: 03/12/18 08:00 Other Lab Results: Laboratory Results WBC 9.2 x10^3/uL (4.8-10.8) 03/12/18 08:00 RBC 4.13 10^6/uL (4.20-5.40) L 03/12/18 08:00 Hgb 10.1 g/dL (12.0-16.0) L 03/12/18 08:00 Hct 30.9 % (37.0-47.0) L 03/12/18 08:00 MCV 74.9 fL (81.0-99.0) L 03/12/18 08:00 MCH 24.4 pg (27.0-31.0) L 03/12/18 08:00 MCHC 32.6 g/dL (32.0-36.0) 03/12/18 08:00 RDW 13.4 % (12.0-15.0) 03/12/18 08:00 Plt Count 182 10^3/uL (130-450) 03/12/18 08:00 MPV 9.0 fL (7.9-10.8) 03/12/18 08:00 Neut # (Auto) 6.4 10^3/uL (1.5-6.6) 03/12/18 08:00 Lymph # (Auto) 1.9 10^3/uL (1.5-3.5) 03/12/18 08:00 [place] # (Auto) 0.8 10^3/uL (0.0-1.0) 03/12/18 08:00 Eos # (Auto) 0.0 10^3/uL (0.0-0.7) 03/12/18 08:00 Baso # (Auto) 0.0 10^3/uL (0.0-0.1) 03/12/18 08:00 Absolute Nucleated RBC 0.01 x10^3/uL 03/12/18 08:00 Nucleated RBC % 0.1 /100WBC 03/12/18 08:00 Blood Type A POSITIVE 03/11/18 13:51 Antibody Screen NEGATIVE 03/11/18 13:51 - Diagnostic Imaging Results Diagnostic Imaging Results: positive: Final report reviewed Diagnostic Imaging Results Comments: Echocardiogram Impression: 1. Overall left ventricular systolic function is normal with an ejection fraction of 65-70% 2. Normal diastolic G for age 3. Right ventricle is normal in size and function 4. No hemodynamically significant cardiac valve disease noted. Obstetrics ultrasound Impression: 1. Lehman intrauterine with cardiac activity of 1 50 bpm 2. Stable appearance of known placental abruption. - EKG Results EKG Interpreted Independently: Yes
[2018-03-12] MEDS ORDERED: ONDANSETRON 4 MG/2 ML VIAL IVP PRN (16:37)
[2018-03-12] MEDS: ZOLPIDEM 5 MG TABLET PO PRN (22:19)
[2018-03-13] MEDS: oxyCODONE 5 MG TABLET PO PRN ×2 (07:37→11:39)
[2018-03-13] MEDS ORDERED: SODIUM CHLORIDE FLUSH 0.9% 10 ML SYRINGE ONE ×2 (10:16→21:40)
[2018-03-13] MEDS: PRENATAL VITAMIN TABLET PO SCH (10:18)
--- NOTE | 2018-03-13 14:46 | PROVIDER PROGRESS NOTE ---
Subjective - Prog Note Date Prog Note Date: 03/13/18 Prog Note Time: 14:43 - Subjective Pt reports feeling: Improved Subjective: Maren was walking in the hallway earlier today with PT. Father is here with Maren and is very supportive. Maren reports that the baby is moving well. Denies vaginal bleeding. Still having occasional contractions. Feels her left hip is less sore. Ambulating with front wheel walker. No overnight or daytime events. Objective - Vital Signs/Intake & Output Vital Signs: Vital Signs x48h Temp Pulse Resp BP Pulse Ox 03/13/18 12:41 97.7 F 90 18 106/54 L 98 03/13/18 08:00 97.9 F 63 16 122/71 99 - Objective General Appearance: positive: No acute distress Eyes Bilateral: positive: Normal inspection Neurologic/Psychiatric: positive: Oriented x3 Comments/Other: NST Reactive and category 1. No decels. Occasional runs of contractions. - Lab Results Fish Bones: 03/12/18 08:00 Assessment/Plan - Problem List (1) Placenta abruptio, antepartum Impression: 22 yo with a 37w1d IUP Stable placental abruption from ground level fall Reassuring and maternal status Improving left hip pain with PT and walker Spent 35 minutes in the room with Maren's father and PGM (on the speaker phone from [place]). Reviewed this week's events, work up and status. Discussed placenta abruption and its maternal and effects. (Medicine has graciously consulted on her and has concluded there are no organic cardiac or neurologic etiologies, likely physiologic effects of the causing sciatica.) Relayed [facility]'s recommendation to continue the until 39 weeks if possible. Also [facility] recommends against the use of prostaglandins for cervical ripening and very cautious use of pitocin. Should an elective delivery be performed, this may make her overall physical situation worse as opposed to a vaginal delivery. Of course if the baby or Maren become unstable, the best course of action would be do to a delivery. Medications for Maren's sciatica are limited as she is allergic to APAP and we cannot use NSAIDs for risk of closing the ductus arteriosus. Muscle relaxants and opioids are our only supportive medications to use. PT has been consulted and finally some relief has been made with recommendations to use a front wheel walker and exercises. Maren and her family are understandably concerned about a repeat fall should Maren go home. I told her we would do the best we could do to maximize her mobility at home but we cannot keep her here until she delivers. An order for secondary social studies teacher has been placed to help expedite durable medical equipment and to find resources from the [employer]. Awaiting phone call from Dr. Dumont as he is seeing patients in the clinic.
--- NOTE | 2018-03-13 15:42 | PROVIDER PROGRESS NOTE ---
Subjective - Prog Note Date Prog Note Date: 03/13/18 Prog Note Time: 15:38 Objective - Vital Signs/Intake & Output Vital Signs: Vital Signs x48h Temp Pulse Resp BP Pulse Ox 03/13/18 12:41 97.7 F 90 18 106/54 L 98 03/13/18 08:00 97.9 F 63 16 122/71 99 - Lab Results Fish Bones: 03/12/18 08:00 Assessment/Plan - Problem List (1) Placenta abruptio, antepartum Impression: I spoke with Sophia, case management rn and explained to her since Maren is getting better with PT, another night in the hospital would be beneficial for her. Will keep Dajond and work on left hip. Do not want her to fall again and end up hospitalized for a third time. A message has been left on Leigh Elias's voice mail ([phone]). She is the [facility] information coordinator. Hopefully she can help coordinate a shower chair, sacroiliac belt and referral to [facility]. Also she may have other resources available to Maren that I am not aware of.
[2018-03-13] MEDS: ZOLPIDEM 5 MG TABLET PO PRN (21:43)
[2018-03-14] MEDS ORDERED: SODIUM CHLORIDE FLUSH 0.9% 10 ML SYRINGE ONE (08:11)
[2018-03-14] MEDS: PRENATAL VITAMIN TABLET PO SCH (08:13)
--- NOTE | 2018-03-14 12:41 | PROVIDER PROGRESS NOTE ---
Subjective - Prog Note Date Prog Note Date: 03/14/18 Prog Note Time: 08:40 - Subjective Pt reports feeling: Improved Subjective: Mrs. Contreras feels more secure and has showered several times without assistance. Her hip pain has improved as well as her stability during ambulation. She is also using a walker without difficulty. She has not experienced any more falls or disturbances in consciousness. She has no fevers chills or pain. She is scheduled to apple picking supervisor a bath C at [facility] upon discharge. Currently her father is available for's assistance but he will leave later today. Dr. Rebecca Rivero has placed a request with [employer] to obtain some daily assistance once patient is discharged. She reports no abdominal/uterine tenderness. Occasionally she senses the contractions but they are mild to minimal. There is no reported vaginal discharge, fluid or bleeding. Objective - Vital Signs/Intake & Output Vital Signs: Vital Signs x48h Temp Pulse Resp BP Pulse Ox 03/14/18 11:52 98.4 F 74 19 116/60 97 03/14/18 07:54 97.9 F 86 16 108/58 L 98 - Lab Results Fish Bones: 03/12/18 08:00 Physical Exam - Physical Exam General: positive: No acute distress, Well developed/nourished, Alert HEENT: positive: Moist mucous membranes Neck: positive: Supple w/out meningeal sx Cardiac: positive: Regular Rate, Murmur Present (Murmur of ) Resipratory: positive: Clear to ausultation bakari Abdomen: positive: Normal Bowel sounds Female : positive: Enlarged uterus (Uterus is flaccid and on careful palpation only minimal changes were palpable. The upper fundal region is no longer tender. Vertex presentation.), Other (Due to lack of signs indicating lytic labor cervical exam deferred) Extremities: positive: Other (Gait has improved, particularly with walker) Skin: positive: Warm and dry Neurologic: positive: Alert and Oriented X 3, Normal motor/no weakness, Normal Sensation, Normal Speech Assessment/Plan - Assessment/Plan Assessment: Patient's partial abruption remains stable by clinical signs and previous ultrasound documentation on this visit. Patient has uterine irritability as expected but no labor. EFM tracing is category 1. Patient's gait has improved with walker. Patient should be safe for discharge home. Continued pelvic PT is necessary for pain relief and maintenance of function. Patient should be safe for a home discharge. Timing and mode of delivery is still under consideration. Patient will receive a [facility] hands-on/ultrasound on evaluation to help clarify these issues. Currently cervical ripening and or Pitocin induction is not recommended. Plan: Anticipate patient will be fit for discharge later today. Will coordinate discharge with [facility]
--- NOTE | 2018-03-14 13:14 | Discharge Plan ---
Discharge Plan Disposition: 01 Home, Self Care Condition: Stable Diet: Regular Activity Restrictions: Wt Bearing as Tolerated Shower Restrictions: No (Must use shower seat.) Driving Restrictions: Yes (Do not recommend driving because of left lower extremity/hip weakness.) Assistance Devices: Walker Weight Bearing: Partial Weight Follow-Up Care: Outpatient Rehab - PT No Smoking: If you smoke, Please STOP! Call for help. Follow-up with: Liseth Byrne MD [Provider Admit Priv/Credential] -
[2018-03-14] MEDS: oxyCODONE 5 MG TABLET PO PRN (14:01)
--- NOTE | 2018-03-14 16:46 | PROVIDER PROGRESS NOTE ---
Subjective - Prog Note Date Prog Note Date: 03/14/18 Prog Note Time: 16:45 - Subjective Pt reports feeling: Improved Subjective: Ms. Contreras was prepared for discharge shortly after 12 PM but it began to note occasional mild contractions without bleeding or pelvic leaking of fluid. She was watched for over 2 hours and the contractions registered on the monitor but palpated minimally. heart tracing was category 1. Just prior to discharge pelvic exam finds no vaginal blood discharge or fluid. Cervix is long thick and closed and -3 station. Prior to discharge reviewed the case with Dr. Aquino on [facility] client relation specialist who is on-call for would be [facility] this weekend. Would be [facility] once the patient to make every effort to use their services and if she suspects labor to call or present there first. This was relayed to the patient. Additionally the patient is to call first thing Saturday morning for an immediate appointment with Dr. Palomino, her usual client relation specialist. Prior to discharge I reviewed warning and callback signs. Patient understands that she should call the [facility] first for these incidents: Contractions every 5 minutes, vaginal bleeding, abdominal/uterine pain, fever, pelvic pressure,. All questions were answered. Objective - Vital Signs/Intake & Output Vital Signs: Vital Signs x48h Temp Pulse Resp BP Pulse Ox 03/14/18 11:52 98.4 F 74 19 116/60 97 - Lab Results Fish Bones: 03/12/18 08:00
[2018-03-14 17:20] VITALS: BP 128/60
--- NOTE | 2018-03-15 03:18 | DISCHARGE SUMMARY ---
Physician: Michael Lyeva MD DATE OF ADMISSION: 03/11/2018 DATE OF DISCHARGE: 03/14/2018 DIAGNOSES 1. Ground level falls x2, first event (Feb) resulted in partial abruption. 2. Partial abruption of placenta, stable (approximately 5 cm in diameter). 3. Multiple bouts of syncope earlier in . 4. Hip pain and associated lower extremity instability resulting in recent falls. 5. Sciatica. 6. Status post betamethasone at 33 weeks due to contractions. COMPLICATIONS: None. CONSULTANTS 1. Dr. Clay, internal medicine/hospitalist. 2. Physical therapy. HISTORY OF PRESENT ILLNESS: The patient presented to ER after a fall while showering caused by left hip pain and instability. There was no abdominal, uterine or head trauma involved. The fall did result in mild contractions every five minutes without suspicion of leaking fluid or vaginal bleeding. The cervix was long, closed and thick. Ultrasound documented that the previous partial abruption was stable and not expanding. The patient had received a course of betamethasone at 33 weeks due to contractions that have since resolved. Earlier in (roughly 12 weeks), The patient experienced multiple syncopal episodes and was worked up with Dr. Hernandez and no cardiovascular reason found. Most recently, the patient was admitted on [address] Rivero due to hip pain & prior fall that did result in uterine trauma and a stable 5 cm placental abruption. Admission hemoglobin was 10.3 with platelets of 190. Overall, EFM tracing was category 1 with a baseline heart rate 120s to 130s. HOSPITAL COURSE: The patient was admitted for observation and begun on IV fluids. The patient and family strongly lobbied for induction. A telephone consult was made with Dr. Manuel VERDUGO at [facility]. He advised against induction, particularly a cervical softening agent, due to possibility of converting a partial abruption into a total abruption. He recommended waiting two weeks for the fibrin to stabilize within the abruption. This opinion was communicated to the patient and family. The patient's hip pain was originally treated with oxycodone 2.5 mg every 4-6 hours. The patient was ALLERGIC TO ACETAMINOPHEN, REPORTING AN ANAPHYLACTOID RESPONSE. Use of ibuprofen or other NSAIDs posed a ductal closure risk to the fetus and therefore withheld. Please reference my detailed history & physical for this visit and Dr. Rebecca Rivero's discharge summary for past visit. Consultation was made with Dr. Agustin Clay, internal medicine. Reference his notes. He did not find a cardiac or neurologic basis for these falls. He concurred with physical therapy that the cause was mechanical, most likely due to sciatica. Physical therapy consultation was obtained. Gait observed and they worked with the patient. She began to ambulate with walker, use shower seat and regain normal activity and function. Recommendations for home shower seat were made and we will coordinate through [facility] to obtain the same. On 03/12/2018, Dr. Rivero managed the patient obstetrically. The patient's function gradually improved during the day. She may need contact with the [facility] pillowcase sewer, Sophia, to coordinate for post-hospitalization care. Additionally , message was left with Leigh Villalba to begin coordination for an immediate referral to [facility] for an in-person evaluation. Coordination was also made for shower chair, sacroiliac belt and continued pelvic PT. Note: Leigh Villalba's phone number ([phone]). The patient's ambulation and pain continued to improve during hospital day #2. The patient demonstrated the ability for self care by hospital day #3 and felt confident about discharge. I observed the patient walk with near normal gait with walker. Obstetrical evaluation found no uterine tenderness, evidence of expansion of abruptio, and category 1 heart tracing. Prior to discharge, we reviewed warning and callback signs including fever, faintness, vertigo, lower extremity weakness/instability, uterine pain, uterine bleeding, suspected rupture of membranes. Final cervical check at the time of discharge was closed , long, soft, & -2 station. Uterine irritability was noted but no uterine pain or evidence of Patient's father was present at the time of final discharge session. Warning sign and callback instructions were reviewed in detail. Patient is to do daily kick accounts and monitor for bleeding, contractions or leakage of fluid. All questions were answered. Patient understands her first contact should be with [facility] clinic and labor and delivery. Prior to discharge I discussed the patient's hospital course with Dr. Aquino, [facility] engineering associate. DISCHARGE MEDICATIONS: vitamins with iron. DURABLE MEDICAL EQUIPMENT: Walker, shower seat, sacroiliac belt. FOLLOWUP 1. Immediate [facility] evaluation to be coordinated through [facility]. 2. Early next week, the patient is to report to [facility], obstetrical department for evaluation and continued care. 3. Pelvic PT per [facility]. TD: 03/14/2018 13:31 MTDD
== END 2018-03-14 16:50 | disposition home or self-care (01) ==
LOC: WFO 13:04 → FBP 13:24 → WFO 14:42 → FBP 14:43
PROVIDERS: ADMIT Obstetrics & Gynecology; ATTEND Obstetrics & Gynecology
DX: O45.93 Premature separation of placenta, unspecified, third trimester (principal); O99.89 Other specified diseases and conditions complicating pregnancy, childbirth and the puerperium; M25.552 Pain in left hip; M25.551 Pain in right hip; M25.352 Other instability, left hip; M54.30 Sciatica, unspecified side; Z3A.36 36 weeks gestation of pregnancy; Z91.81 History of falling; Z88.6 Allergy status to analgesic agent; W18.39XA Other fall on same level, initial encounter; Y93.E1 Activity, personal bathing and showering
CPT/HCPCS: 36415; 76815; 80053; 81599; 83690; 85025; 86850; 86900; 86901; 96374; 97116; 97161; 97530; 97535; 99213; 99283; 99284; A9270; G0378; G8978; G8979

== ENCOUNTER 2018-04-08 16:02 | Inpatient (IN) | payer OTHER ==
[2018-04-08] MEDS ORDERED: SODIUM CHLORIDE FLUSH 0.9% 10 ML SYRINGE IVP PRN (16:49)
[2018-04-08] MEDS ORDERED: SODIUM CHLORIDE FLUSH 0.9% 10 ML SYRINGE IVP SCH (17:00)
[2018-04-08] MEDS ORDERED: fentaNYL 100 MCG/2 ML VIAL IVP PRN (17:40)
--- NOTE | 2018-04-08 18:03 | HISTORY & PHYSICAL EXAMINATION ---
History of Present Illness - History of Present Illness HPI Comment/Other: CC: wants to be induced HPI: Having chronic sciatica this to the point where she has fallen twice this and a 5cm abruption started. Wanted IOL sooner rather than later but patient states that [facility] has not been able to acommodate her due to bed/staffing shortage. They are on divert today. No VB, no LOF. No UC. Good FM. ROS: feeling well, no fevers PMH: 1. Sciatica, left side, lateral to knee level. Has had episodes of whole-leg numbness but has always had full motor function. Uses a walker at home when she feels numb. Usually numbness will resolve spontaneously after 10-15min. S/p PT consult. S/p internal medicine consult who rulled out neuro or cardiac etiology. 2. Reactive airway disease, has not needed albuterol since this September. PSH: --laparoscopic appendectomy --LSC lysis of adhesions Allergies --Acetaminophen-->throat closing and rash --Cherries-->itching Meds --PNV daily SH: [employer]. Single parent, FOB is not involved. Has support from family flying in and from roommate. No tobacco or drug use. Has consumed 1/2 glass of wine q3w during . Feels safe at home. FH: no anesthesia problems OB Hx: Datin04/02/18 by LMP 06/26/17 c/w 11w US on 09/20/17 Labs: See prenatals. Rh +, RI, hep B neg, gc/ct neg, HIV neg. GBS neg 03/04/18. Problems: --[id number] fundal placenta abruption s/p fall. Stable on US weeks later. s/p MFM consult --Microcytic anemia, last Hct was 30 --abnormal RODERICK screening, s/p normal MFM eval. 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 The patient does state that her grandmother and her mother had very difficult pregnancies. She states that they both ended up being bedbound for much of their . They both had to have C-sections. Social History Notes: The patient lives in [place] and is in the [facility]. She has support from her family including her cousin who is at bedside. This is the patient's first . She is a non-smoker, she does not drink alcohol or use any illicit drugs. - Substance History Use: Uses substance without health or social issues: NONE - POLST Patient has POLST: No POLST Status: Full Code Meds/Allgy - Home Medications Home Medications: Ambulatory Orders Medication Instructions Recorded Confirmed Albuterol Sulf [Ventolin Hfa 1 - 2 puffs INH Q4HR PRN #1 inhaler 09/08/17 03/09/18 Inhaler] Vitamin [Trinatal Rx 1] 1 each PO DAILY 09/20/17 03/09/18 NIFEdipine [Nifedipine] 10 mg PO Q6H 03/09/18 03/09/18 - Allergies Allergies/Adverse Reactions: Allergies Allergy/AdvReac Type Severity Reaction Status Date / Time acetaminophen Allergy Severe Anaphylaxis Verified 09/20/17 14:43 khan AdvReac Hives Verified 03/11/18 17:05 Conclusion/Plan - Problem List (1) Placenta abruptio, antepartum Conclusion/Plan: 22yo G1 at 40w6d by LMP c/w 11w US who presents to our OB triage today saying that she wants IOL and that [facility] is full. On review of records patient would benefit from IOL so she was accomodated here. With her hx of a 5cm placental abruption in the 3rd trimester, stable on US a few weeks later, I do feel like delivery now would be prudent as she is post her due date, her placenta will continue to mature and may start to lose function, and her abruption could conceivably worsen at any time. --Start with ENGINEERING CONSULTANT to assess how fetus will tolerate UC --If ENGINEERING CONSULTANT is OK then proceed with pitocin IOL. --NPO until ENGINEERING CONSULTANT is done. Then clears only. --Will recommend epidural earlier rather than later in case is needed --Continuous monitoring and will use scalp electrode if can't keep a good tracing. --Type and cross for 2U in case of hemorrhage, especially considering starting Hct of 30. Patient had been scheduled for primary tomorrow at [facility] for macrosomia. US on 04/03/18 showed EFW 84%ile, 4110g = 9#0oz, BIJAN = 16. Discussed with pt that in absence of diabetes (her 1h was normal) this is not true macrosomia. discussed US margin of error at this EGA is wide--baby could be bigger or smaller than predicted by US. I discussed option of primary c- section with patient, not recommended but an available option. She declines and would like a trial of labor. Her EFW by faibán today was 8.5 lbs, pelvis is adequate. (2) Sciatic leg pain Conclusion/Plan: With occasional entire leg numbness but no loss of motor function. Has been using a walker at home PRN numbness as she has fallen twice this preg due to numbness. Will have walker available here. - Lab Results Fish Bones: 04/08/18 17:55
[2018-04-08 18:22] LABS: BASOPHILS # (AUTO) 0.1 10^3/uL (0.0-0.1); BASOPHILS % (AUTO) 0.7 %; EOSINOPHILS % (AUTO) 0.3 %; HGB - HEMOGLOBIN 10.5 g/dL (12.0-16.0); LYMPHOCYTES # (AUTO) 1.6 10^3/uL (1.5-3.5); LYMPHOCYTES % (AUTO) 13.4 %; MEAN CORPUSCULAR HEMOGLOBIN 24.4 pg (27.0-31.0); MEAN CORPUSCULAR HGB CONC 32.6 g/dL (32.0-36.0); MEAN CORPUSCULAR VOLUME 74.8 fL (81.0-99.0); MEAN PLATELET VOLUME 9.9 fL (7.9-10.8); MONOCYTES % (AUTO) 8.2 %; NEUTROPHILS # (AUTO) 9.2 10^3/uL (1.5-6.6); NEUTROPHILS % (AUTO) 77.4 %; PLT - PLATELET COUNT 174 10^3/uL (130-450); RED BLOOD COUNT 4.31 10^6/uL (4.20-5.40); RED CELL DISTRIBUTION WIDTH 14.4 % (12.0-15.0); WHITE BLOOD COUNT 11.9 x10^3/uL (4.8-10.8)
[2018-04-08] MEDS: LACTATED RINGERS 1,000 ML IV SCH (18:42)
[2018-04-08] MEDS ORDERED: OXYTOCIN/SODIUM CHLORIDE 500 ML IV SCH (19:00)
--- NOTE | 2018-04-08 21:03 | PROVIDER PROGRESS NOTE ---
Objective - Vital Signs/Intake & Output Intake & Output: Intake & Output 04/05/18 04/06/18 04/07/18 04/08/18 23:59 23:59 23:59 23:59 Intake Total 0.633 Output Total 200 Balance -199.367 - Lab Results Fish Bones: 04/08/18 17:55 Other Labs: Lab Results x24hrs 04/08/18 04/08/18 Range/Units 17:55 17:55 WBC 11.9 H (4.8-10.8) x10^3/uL RBC 4.31 (4.20-5.40) 10^6/uL Hgb 10.5 L (12.0-16.0) g/dL Hct 32.2 L (37.0-47.0) % MCV 74.8 L (81.0-99.0) fL MCH 24.4 L (27.0-31.0) pg MCHC 32.6 (32.0-36.0) g/dL RDW 14.4 (12.0-15.0) % Plt Count 174 (130-450) 10^3/uL MPV 9.9 (7.9-10.8) fL Neut # (Auto) 9.2 H (1.5-6.6) 10^3/uL Lymph # (Auto) 1.6 (1.5-3.5) 10^3/uL Polk # (Auto) 1.0 (0.0-1.0) 10^3/uL Eos # (Auto) 0.0 (0.0-0.7) 10^3/uL Baso # (Auto) 0.1 (0.0-0.1) 10^3/uL Absolute Nucleated RBC 0.01 x10^3/uL Nucleated RBC % 0.1 /100WBC Blood Type A POSITIVE Antibody Screen NEGATIVE Crossmatch IS Only See Detail Assessment/Plan - Problem List (1) Placenta abruptio, antepartum Impression: Category 1 NST throughtout AITCHBONE BREAKER. Proceed with IOL. Pit now at 3mU/min.
[2018-04-08] MEDS ORDERED: ZOLPIDEM 5 MG TABLET PO PRN (21:31)
[2018-04-09 00:05] LABS: CREATININE,URINE 44.6 mg/dL; PROTEIN/CREATININE RATIO,URINE 0.2 (<=0.2)
[2018-04-09] MEDS: LACTATED RINGERS 1,000 ML IV SCH ×4 (00:51→22:30)
[2018-04-09] MEDS ORDERED: fent/BUPIV 2 MCG/0.125% 250 ML EP ONE (01:28)
[2018-04-09] MEDS ORDERED: BUPIVACAINE 0.25% PF 10 ML VIAL ONE (01:51)
--- NOTE | 2018-04-09 01:55 | ANESTHESIA ---
Pre-Anesthesia VS, & Labs - Diagnosis active labor - Procedure Vaginal delivery Height 5 ft 6 in Weight (kg) 86.183 kg Body Mass Index 29.9 - NPO Other (N/A) - Is Patient ?: Yes - Lab Results Current Lab Results: Laboratory Tests 04/08/18 17:55: Blood Type A POSITIVE, Antibody Screen NEGATIVE, Crossmatch IS Only See Detail 04/08/18 17:55: WBC 11.9 H, RBC 4.31, Hgb 10.5 L, Hct 32.2 L, MCV 74.8 L, MCH 24.4 L, MCHC 32.6, RDW 14.4, Plt Count 174, MPV 9.9, Neut # (Auto) 9.2 H, Lymph # (Auto) 1.6, [place] # (Auto) 1.0, Eos # (Auto) 0.0, Baso # (Auto) 0.1, Absolute Nucleated RBC 0.01, Nucleated RBC % 0.1 Fish Bones: 04/08/18 17:55 Home Medications and Allergies Home Medications: Ambulatory Orders Medication Instructions Recorded Confirmed Albuterol Sulf [Ventolin Hfa 1 - 2 puffs INH Q4HR PRN #1 inhaler 09/08/17 03/09/18 Inhaler] Vitamin [Trinatal Rx 1] 1 each PO DAILY 09/20/17 03/09/18 Active Medications Fentanyl (Fentanyl) 100 mcg IVP Q1H PRN PRN Reason: PAIN Lactated Ringer's (Lr) 1,000 mls @ 100 mls/hr IV .Q10H RUTHANN Last Admin: 04/09/18 00:51 Dose: 100 mls/hr Oxytocin/Sodium Chloride (Pitocin/Sodium Chloride) 500 mls @ 1 mls/hr IV TITR RUTHANN; Protocol Last Titration: 04/08/18 19:24 Dose: 2 milliunit/min, 2 mls/hr Sodium Chloride (Normal Saline Flush 0.9%) 10 ml IVP 0100,0900,1700 RUTHANN Last Admin: 04/08/18 17:55 Dose: 10 ml Sodium Chloride (Normal Saline Flush 0.9%) 10 ml IVP PRN PRN PRN Reason: NEEDED PER PROVIDER ORDERS Last Admin: 04/08/18 17:55 Dose: 10 ml Zolpidem Tartrate (Ambien) 5 mg PO QPM PRN PRN Reason: Insomnia Last Admin: 04/08/18 21:50 Dose: 5 mg Vitamin [Trinatal Rx 1] 1 each PO DAILY 09/20/17 NIFEdipine [Nifedipine] 10 mg PO Q6H 03/09/18 Allergies/Adverse Reactions: Allergies Allergy/AdvReac Type Severity Reaction Status Date / Time acetaminophen Allergy Severe Anaphylaxis Verified 09/20/17 14:43 khan AdvReac Hives Verified 03/11/18 17:05 Anes History & Medical History - Anesthetic History Anesthesia Complications: reports: No previous complications - Medical History Cardiovascular: reports: None Pulmonary: reports: None Gastrointestinal: reports: None Urinary: reports: None Musculoskeletal: reports: Other (back/hip pain) Endocrine/Autoimmune: reports: None Blood Disorders: reports: None Skin: reports: None Smoking Status: Never smoker - Surgical History General: Appendectomy Gynecologic: Other - Obstetrical History : 1 Parity: 0 Events: positive: None Complications: positive: None Exam General: Alert, Oriented x3, Cooperative Dental: WNL Mouth Openin Fingerbreadth Neck Mobility: Normal Mallampati classification: II Respiratory: Lungs clear, Normal breath sounds, No respiratory distress, No acce ssory muscle use Cardiovascular: Regular rate, Normal S1, Normal S2, No murmurs Mental/Cognitive Status: Alert/Oriented X3, Normal for patient Cognitive Status: Within normal limits Plan Anesthesia Type: Epidural Consent for Procedure(s) Verified and Reviewed: Yes Code Status: Attempt Resuscitation ASA classification: 2-Mild systemic disease Is this case an emergency?: No
[2018-04-09] MEDS ORDERED: ONDANSETRON 4 MG/2 ML VIAL ONE (02:02)
[2018-04-09] MEDS ORDERED: ONDANSETRON 4 MG/2 ML VIAL IVP SCH (02:05)
[2018-04-09] MEDS ORDERED: fent/BUPIV 2 MCG/0.125% 250 ML EP PRN (02:29)
[2018-04-09] MEDS ORDERED: LACTATED RINGERS 500 ML IV ONE (02:29)
[2018-04-09] MEDS ORDERED: NALBUPHINE 10 MG/ML AMP IVP PRN (02:29)
[2018-04-09] MEDS ORDERED: ePHEDrine 50 MG/ML VIAL IVP PRN (02:29)
[2018-04-09] MEDS ORDERED: ONDANSETRON 4 MG/2 ML VIAL IVP PRN (02:29)
[2018-04-09] MEDS ORDERED: NALOXONE 0.4 MG/ML VIAL IVP PRN (02:29)
[2018-04-09] MEDS ORDERED: TERBUTALINE 1 MG/ML VIAL SUBQ ONE (03:19)
--- NOTE | 2018-04-09 04:00 | PROVIDER PROGRESS NOTE ---
Objective - Vital Signs/Intake & Output Intake & Output: Intake & Output 04/06/18 04/07/1818 04/09/18 23:59 23:59 23:59 23:59 Intake Total 150.633 615 Output Total 450 400 Balance -299.367 215 - Lab Results Fish Bones: 04/08/18 17:55 Other Labs: Lab Results x24hrs 04/08/18 04/08/18 04/08/18 Range/Units 23:15 17:55 17:55 WBC 11.9 H (4.8-10.8) x10^3/uL RBC 4.31 (4.20-5.40) 10^6/uL Hgb 10.5 L (12.0-16.0) g/dL Hct 32.2 L (37.0-47.0) % MCV 74.8 L (81.0-99.0) fL MCH 24.4 L (27.0-31.0) pg MCHC 32.6 (32.0-36.0) g/dL RDW 14.4 (12.0-15.0) % Plt Count 174 (130-450) 10^3/uL MPV 9.9 (7.9-10.8) fL Neut # (Auto) 9.2 H (1.5-6.6) 10^3/uL Lymph # (Auto) 1.6 (1.5-3.5) 10^3/uL [place] # (Auto) 1.0 (0.0-1.0) 10^3/uL Eos # (Auto) 0.0 (0.0-0.7) 10^3/uL Baso # (Auto) 0.1 (0.0-0.1) 10^3/uL Absolute Nucleated RBC 0.01 x10^3/uL Nucleated RBC % 0.1 /100WBC Urine Creatinine 44.6 mg/dL Ur Total Protein Timed 11 mg/dL Protein/Creatinin Ratio 0.2 (<=0.2) Blood Type A POSITIVE Antibody Screen NEGATIVE Crossmatch IS Only See Detail Assessment/Plan - Problem List (1) Placenta abruptio, antepartum Impression: S: comfortable with epidural. O: mild range elevated BP while in pain. Comfortable, NAD SVE 08/10/-3/posterior/soft. Ballottable head. SROM clear around 01:10 Epidural around 02:00 NST prior to SROM was category 1, toco with coupled contractions. NST currently with normal baseline. Moderate LTV currently. Periods of time in the past hour have been minimal variablity. A 2-3 min period was absent variability. No current accelerations. Late decelerations started at 02:40. At 03:05 started oxygen and fluid bolus. Has undergone 2 position changes since then to steep left side and just now to hands and knees. Tracing improved with improved variability returning to moderate. Last 2 contractions have not had late decels. Fam placed. Fluid has changed to light mec--towels from her labor were observed by RN and myself--the initial ROM may have been light mec as well--fluid not totally straw colored, there is the faintest hint of green tinge. A/P: 22yo P1 at 41w0d with IOL for post dates and a previous placental abruption [id number] fundal that happened around 34 weeks gestation. Abruption has been stable since that time. Pt was on pitocin which was turned off after SROM clear then epidural. Began having category 2 tracing. Intrauterine rescusitat ion started. Pt with a 2-3min period of absent variability which has resolved: during that time warehouse incentive selector was called to be on unit and terbutaline was pulled up to use PRN. Tracing has improved since then and pt is without decels in the past few contractions. Pt is remote from delivery and pitocin tends to give her clustered contractions. She is 1cm and the head is not well-engaged in the pelvis even after ROM. Light mec but this may not be an acute change. EFW 8-9# by fabián to US. Now that tracing is improving, will give her fetus time to rest and then will restart pitocin later. High suspicion for needing c- section with all of the factors above going on. Will not jump to at this time with a currently reassuring tracing.
[2018-04-09] MEDS ORDERED: CITRIC ACID/SODIUM CITRATE 15 ML UDC PO ONE ×2 (05:24→05:58)
[2018-04-09] MEDS ORDERED: BUPIVACAINE 0.5% PF 10 ML VIAL ONE (05:49)
[2018-04-09] MEDS ORDERED: fentaNYL 100 MCG/2 ML VIAL ONE (05:49)
[2018-04-09] MEDS ORDERED: ceFAZolin 2 GM in SODIUM CHLORIDE 0.9% MINIBAG 100 ML IV ONE (06:00)
[2018-04-09] MEDS ORDERED: FAMOTIDINE 20 MG in SODIUM CHLORIDE 0.9% 50 ML IV ONE (06:00)
[2018-04-09] MEDS ORDERED: BUPIVACAINE 0.5% PF 30 ML VIAL ONE (06:59)
[2018-04-09] MEDS ORDERED: BUPIVACAINE 0.5% PF 30 ML VIAL INFIL ONE (07:01)
[2018-04-09] MEDS ORDERED: LIDOCAINE 2% 10 ML MDV SUBQ ONE (07:15)
[2018-04-09] MEDS ORDERED: KETOROLAC 30 MG/ML VIAL IVP ONE (07:15)
[2018-04-09] MEDS ORDERED: ONDANSETRON ODT 4 MG TABLET TL PRN (07:26)
[2018-04-09] MEDS ORDERED: WITCH HAZEL/GLYCERIN 1 EACH MED..PAD TOP PRN (07:26)
[2018-04-09] MEDS ORDERED: diphenhydrAMINE 25 MG CAPSULE PO PRN (07:26)
[2018-04-09] MEDS ORDERED: HYDROCORTISONE/PRAMOXINE 10 GM PR PRN (07:26)
[2018-04-09] MEDS ORDERED: SODIUM CHLORIDE FLUSH 0.9% 10 ML SYRINGE IVP PRN (07:26)
[2018-04-09] MEDS ORDERED: LACTATED RINGERS 1,000 ML IV ONE (07:39)
--- NOTE | 2018-04-09 07:54 | OPERATIVE REPORT ---
Operative Report - General Admit Date: 04/08/18 Procedure Date: 04/09/18 Planned Procedure: Primary low transverse section Pre-Op Diagnosis: intolerance to labor Procedure Performed: Primary low transverse Post Op Diagnosis: intolerance of labor - Procedure Note Primary Surgeon: Simona Mcgraw Secondary Surgeon: grey= Guillermina Orantes CNM Anesthesia Technique: Epidural Pathology: placenta, cord gasses, cord blood for typing IV Fluids (mL): 600 Estimated Blood Loss (mL): 600 Urine Output (mL): 800 Complications: none
[2018-04-09] MEDS ORDERED: OXYTOCIN/SODIUM CHLORIDE 500 ML IV ONE (07:55)
[2018-04-09] MEDS: oxyCODONE 5 MG TABLET PO PRN ×3 (09:39→18:27)
--- NOTE | 2018-04-09 10:47 | OPERATIVE REPORT ---
DATE OF SERVICE: 04/09/2018 Physician: Simona Mcgraw MD PREOPERATIVE DIAGNOSES 1. intolerance of labor. 2. Intrauterine at 41 weeks and 0 days. 3. Chronic placental abruption. POSTPROCEDURE DIAGNOSES 1. intolerance of labor. 2. Chronic placental abruption. 3. Abnormal placenta: circummarginate with a 1cm diameter vein running from the placenta to the cord along the membranes about 4cm away from the placenta proper. This vein appeared to be intact. PROCEDURE PERFORMED: Primary low transverse section. SURGEON: Simona Mcgraw MD. UMBRELLA TIPPER HAND: Abbey Orantes CNM ANESTHESIA: Epidural. COUNTS: Correct x2. COMPLICATIONS: None apparent. DISPOSITION: Stable to her delivery room. PROPHYLAXIS: Ancef 2 grams IV. SCDs were on her legs, but were not plugged in due to the emergent procedure. PATHOLOGY: Placenta to Pathology. Cord gases and umbilical cord blood for typing to the lab. FINDINGS 1. Meconium-stained fluid. 2. Liveborn male, weight is pending. Apgars 2 at one minute, 5 at five minutes, and 8 at ten minutes. Umbilical cord venous pH 7.1 with a base excess of -7. Umbilical cord arterial pH 7.0 with a base excess of -7. 3. Normal uterus, ovaries and fallopian tubes. COUNSELING: Patient presented with care at an outside facility, requesting induction of labor for chronic sciatica that has worsened throughout the . Her chart was reviewed and she was found to have a chronic placental abruption. She was induced for being after her due date and having the abruption diagnosis. She received a contraction stress test that was normal. She then received Pitocin to affect delivery. Her heart rate tracing had been category 1, while up to 4 milliunits per minute of Pitocin. Then, the patient had spontaneous rupture of membranes for meconium-stained fluid. At that time, she had a change in her heart rate tracing to category 2. This resolved with turning the Pitocin off, position changes, IV fluid bolus, and oxygen. After intrauterine resuscitation, the Pitocin was resumed at 1 milliunit per minute and late decelerations began again. At that point, the patient was counseled that primary was recommended. Her Pitocin was turned off. She received oxygen for a while and her tracing improved back to a category 1. The operating room team was mobilized under nonemergent conditions. The patient and I discussed how the procedure was performed. We reviewed risks including but not limited to bleeding, infection, trauma to local organs, anesthesia complications and problems with future pregnancies because of scar tissue on the uterus. She did not have any questions, and her consent form had been signed. DESCRIPTION OF PROCEDURE: While the operating room staff was getting ready to bring the patient from her delivery room, she had a deceleration down to the 80s before her tracing was lost. At this point, she was emergently moved to the operating room. She received terbutaline subcutaneously. She was placed in a left tilt and oxygen was applied. She was rapidly prepped and draped. Her ChloraPrep was not allowed to dry, and so a Bovie was not used intraoperatively. A Pfannenstiel skin incision was made with a scalpel and carried down to the fascia, which was nicked in the midline bilaterally. The fascial incision was extended bluntly, laterally. I was unable to dissect the fascia off of the rectus bluntly because of strong tissue. Kochers were placed on the inferior margin of the fascial incision, and the fascia was bluntly and sharply dissected off the rectus. The Kochers were replaced superiorly, and the same was performed in that way. The peritoneum was bluntly entered. A bladder retractor was placed. The uterine incision was made transversely in the lower uterine segment. The uterine incision was extended laterally by applying traction to the incision caudally and cranially. The surgeon's hand was placed in the uterine cavity, and the head was elevated and then delivered with pressure on the fundus. There was no nuchal cord. The infant had some initial tone with his knees brought up. He also had a grimace and a cry attempt. This is while I was clamping the cord x2. The cord was cut. I brought the baby to the warmer. I then put fresh gloves over the gloves that had touched the warmer. A section of cord blood was saved for cord gases. RT obtained these about 15 minutes after . I did not obtain cord blood for typing at that time. Instead, after the procedure was done, I yumiko this off of the placenta. The placenta was delivered with external uterine massage. Trailing membranes were removed with a lap. The patient's uterus was closed with a running layer of 0 Vicryl. A second imbricating layer was performed. Hemostasis was excellent. Patient also had excellent tone of the upper and lower uterus. Inspection revealed normal ovaries and fallopian tubes. Her gutters were irrigated. The peritoneum, uterine incision, and rectus were observed to be hemostatic. The fascia was intact. The peritoneum was closed with a running layer of 2-0 Vicryl. The fascia was closed with a running layer of 0 Vicryl. The subcutaneous tissues were closed with interrupted sutures of 2-0 Vicryl. The skin was then closed with a running subcuticular of 4-0 Monocryl. Patient had excellent hemostasis throughout. Dermabond was used as a dressing. Fundal massage yielded a normal amount of blood and clot. The fundus was firm and midline at the umbilicus. Patient was able to hold her baby intraoperatively. He is vigorous and showing signs of wanting to nurse. TD: 04/09/2018 08:28 BI
[2018-04-09] MEDS: CELECOXIB 100 MG CAPSULE PO SCH ×2 (14:17→22:11)
[2018-04-09] MEDS: MORPHINE 2 MG/ML CARPUJECT IVP PRN ×2 (15:22→16:27)
[2018-04-09] MEDS: SIMETHICONE CHEW 80 MG TABLET PO PRN (19:01)
[2018-04-09] MEDS: DOCUSATE SODIUM 100 MG CAPSULE PO SCH (22:11)
[2018-04-10] MEDS: oxyCODONE 5 MG TABLET PO PRN ×5 (01:01→23:05)
[2018-04-10] MEDS: DOCUSATE SODIUM 100 MG CAPSULE PO SCH ×3 (05:05→21:36)
[2018-04-10 06:49] LABS: BASOPHILS % (AUTO) 0.3 %; EOSINOPHILS % (AUTO) 0.3 %; HGB - HEMOGLOBIN 7.9 g/dL (12.0-16.0); LYMPHOCYTES # (AUTO) 1.7 10^3/uL (1.5-3.5); LYMPHOCYTES % (AUTO) 13.5 %; MEAN CORPUSCULAR HEMOGLOBIN 23.8 pg (27.0-31.0); MEAN CORPUSCULAR HGB CONC 31.5 g/dL (32.0-36.0); MEAN CORPUSCULAR VOLUME 75.5 fL (81.0-99.0); MEAN PLATELET VOLUME 9.6 fL (7.9-10.8); MONOCYTES # (AUTO) 0.9 10^3/uL (0.0-1.0); MONOCYTES % (AUTO) 7.2 %; NEUTROPHILS # (AUTO) 9.6 10^3/uL (1.5-6.6); NEUTROPHILS % (AUTO) 78.7 %; PLT - PLATELET COUNT 146 10^3/uL (130-450); RED BLOOD COUNT 3.32 10^6/uL (4.20-5.40); RED CELL DISTRIBUTION WIDTH 14.3 % (12.0-15.0); WHITE BLOOD COUNT 12.2 x10^3/uL (4.8-10.8)
[2018-04-10 07:03] LABS: CALCIUM 8.5 mg/dL (8.5-10.3)
[2018-04-10] MEDS: SODIUM CHLORIDE FLUSH 0.9% 10 ML SYRINGE IVP SCH (08:48)
--- NOTE | 2018-04-10 10:02 | ANESTHESIA POST OP EVALUATION ---
Anesthesia Post Eval - Post Anesthesia Eval CV Function Including HR & BP: positive: Stable Pain Control: positive: Adequate Nausea & Vomiting: positive: Negative Mental Status: positive: Appropriate Anesthesia Complications: positive: None (Patient reports she had good pain control with epidural during surgery. Denies any residual effects or headaches. No apparent anesthesia complications)
[2018-04-10 10:11] LABS: ALBUMIN 2.3 g/dL (3.2-5.5); ALBUMIN/GLOBULIN RATIO 0.8 (1.0-2.2); BILIRUBIN,TOTAL 0.5 mg/dL (0.2-1.0); CREATININE 0.6 mg/dL (0.4-1.0); TOTAL PROTEIN 5.1 g/dL (6.7-8.2)
--- NOTE | 2018-04-10 12:31 | PROVIDER PROGRESS NOTE ---
Subjective - Subjective Subjective: No problems today. Had some bad pain yesterday but this resolved with IV narcs. Eating OK but little appetite. No n/v. is a challenge but pt feels supported. Mood is OK. Urinating OK. No flatus yet. Walking well O: AVSS, alert NAD, smiling Abd soft, appropiately tender, ND Incision c/d/i without erythema Fundus firm NT 1cm below U Objective - Vital Signs/Intake & Output Vital Signs: Vital Signs x48h Temp Pulse Resp BP Pulse Ox 04/10/18 08:00 98.4 F 82 16 127/84 H 100 04/10/18 05:40 98.4 F 72 18 131/78 H 99 Intake & Output: Intake & Output 04/07/18 04/08/18 04/09/18 04/10/18 23:59 23:59 23:59 23:59 Intake Total 597.041 8074.333 750 Output Total 450 1900 1850 Balance -321.666 0801.333 -1100 - Lab Results Fish Bones: 04/10/18 06:20 04/10/18 06:20 Other Labs: Lab Results x24hrs 04/10/18 04/10/18 Range/Units 06:20 06:20 WBC 12.2 H (4.8-10.8) x10^3/uL RBC 3.32 L (4.20-5.40) 10^6/uL Hgb 7.9 L (12.0-16.0) g/dL Hct 25.1 L (37.0-47.0) % MCV 75.5 L (81.0-99.0) fL MCH 23.8 L (27.0-31.0) pg MCHC 31.5 L (32.0-36.0) g/dL RDW 14.3 (12.0-15.0) % Plt Count 146 (130-450) 10^3/uL MPV 9.6 (7.9-10.8) fL Neut # (Auto) 9.6 H (1.5-6.6) 10^3/uL Lymph # (Auto) 1.7 (1.5-3.5) 10^3/uL Lewis # (Auto) 0.9 (0.0-1.0) 10^3/uL Eos # (Auto) 0.0 (0.0-0.7) 10^3/uL Baso # (Auto) 0.0 (0.0-0.1) 10^3/uL Absolute Nucleated RBC 0.00 x10^3/uL Nucleated RBC % 0.0 /100WBC Sodium 137 (135-145) mmol/L Potassium 3.7 (3.5-5.0) mmol/L Chloride 107 (101-111) mmol/L Carbon Dioxide 26 (21-32) mmol/L Anion Gap 4.0 L (6-13) BUN 7 (6-20) mg/dL Creatinine 0.6 (0.4-1.0) mg/dL Estimated GFR (MDRD) 154 (>89) Glucose 74 (70-100) mg/dL Calcium 8.5 (8.5-10.3) mg/dL Total Bilirubin 0.5 (0.2-1.0) mg/dL AST 47 H (10-42) IU/L ALT 45 (10-60) IU/L Alkaline Phosphatase 115 (42-121) IU/L Total Protein 5.1 L (6.7-8.2) g/dL Albumin 2.3 L (3.2-5.5) g/dL Globulin 2.8 (2.1-4.2) g/dL Albumin/Globulin Ratio 0.8 L (1.0-2.2) Assessment/Plan - Problem List (1) Placenta abruptio, antepartum Impression: 22yo P1 POD #1 s/p primary for intolerance to labor. Doing well. Continue support. Rh +, RI, will ask her about Tdap. Appropriate degree of anemia postop, start Fe. (2) Acute blood loss anemia Impression: see above
[2018-04-10] MEDS: CELECOXIB 100 MG CAPSULE PO SCH (13:49)
[2018-04-10] MEDS: SIMETHICONE CHEW 80 MG TABLET PO PRN (13:49)
[2018-04-10] MEDS: FERROUS SULFATE 325 MG TABLET PO SCH (13:50)
[2018-04-11] MEDS: CELECOXIB 100 MG CAPSULE PO SCH ×3 (02:53→23:52)
[2018-04-11] MEDS: oxyCODONE 5 MG TABLET PO PRN ×4 (07:08→23:52)
[2018-04-11] MEDS: FERROUS SULFATE 325 MG TABLET PO SCH (09:23)
[2018-04-11] MEDS: DOCUSATE SODIUM 100 MG CAPSULE PO SCH ×2 (09:23→20:31)
--- NOTE | 2018-04-11 11:12 | Discharge Plan ---
Discharge Plan Disposition: Home, Self Care Condition: Good Prescriptions: oxyCODONE [Roxicodone] 5 mg PO Q4HR PRN #20 tablet PRN Reason: Severe Pain Celecoxib [CeleBREX] 200 mg PO BID PRN #30 capsule PRN Reason: Pain Docusate Sodium [Dulcolax Stool Softener] 100 mg PO BID PRN #60 capsule PRN Reason: to soften stool Iron Polysaccharide Complex [Pro Fe] 180 mg PO DAILY #60 capsule Diet: Regular Activity Restrictions: see Dr. Mcgraw's instructions Shower Restrictions: No Driving Restrictions: Yes (not while on oxycodone) Assistance Devices: Walker (to be used PRN leg numbness at home) Weight Bearing: Full Weight No Smoking: If you smoke, Please STOP! Call for help.
[2018-04-11] MEDS ORDERED: TETANUS/DIPHTHERIA/PERTUSSIS 0.5 ML SYRINGE IM ONE (12:01)
--- NOTE | 2018-04-11 13:44 | DISCHARGE SUMMARY ---
Physician: Simona Mcgraw MD DATE OF ADMISSION: 04/08/2018 DATE OF DISCHARGE: 04/12/2018 ADMISSION DIAGNOSES: 1. Intrauterine uterine at 40 weeks and 6 days. 2. Chronic placental abruption. 3. Sciatica. DISCHARGE DIAGNOSES: 1. Status post primary section. 2. intolerance of labor. 3. Abnormal placenta. 4. Acute blood loss anemia. OPERATIONS AND PROCEDURES: On 04/09/2018, primary low transverse section for intolerance to labor. She had a 600 mL blood loss. Her anatomy was normal. HOSPITAL COURSE: The patient was admitted for induction of labor, due to being post-date, having chronic musculoskeletal pain and having a chronic abruption. She passed a contraction stress test, and so Pitocin induction was continued. She developed a category-2 tracing, following spontaneous rupture of membranes. The Pitocin was turned off. She recovered to a category-1 tracing with intrauterine resuscitation. The induction of labor was resumed, and the fetus quickly showed return to a category-2 tracing. Intrauterine resuscitation was again performed, and the fetus returned to a category-1 tracing. While the operating room team was in her room to bring her back to the operating room, she had a bradycardic event, and she was brought emergently to the operating room at that time. Intraoperatively, the head was not well engaged in the pelvis. There was no bloody amniotic fluid seen. There was no nuchal cord. There was a very unusual vessel on the membranes; it was of a vein about 1 cm in diameter that ran along the membranes, from the placenta to the cord, completely separate from the placenta. I am wondering if the baby could have been putting pressure on this, suddenly causing the bradycardia. Postoperatively, the patient did well. By day 3, she was considering discharge home, but she was not quite sure yet. If she does not feel ready to go home, then we will hold her discharge until tomorrow. Breast feeding was challenging, and so she had decided to bottle feed instead. She was eating, ambulating, and urinating without difficulties. She had not yet had a bowel movement. Her pain was well controlled, and she did not have any heavy bleeding. The patient did not receive a Tdap vaccine antepartum, and she was amenable to receiving this . It was given while inpatient DISCHARGE EXAMINATION: Afebrile with normal vital signs. Alert, pleasant, in no apparent distress. Abdomen soft, nontender, nondistended. Fundus firm, nontender, at the umbilicus. Incision clean, dry, and intact without erythema or induration. DISCHARGE MEDICATIONS: 1. Celebrex b.i.d. p.r.n. 2. Oxycodone 5-10 mg p.o. q. 4 hours p.r.n. pain, #20 without refills. 2. Colace p.r.n. to soften stool. 3. vitamins daily. 4. Start iron daily. OUTSTANDING LABORATORIES: None. DISCHARGE CONDITION: Good. DISPOSITION: Home. FOLLOWUP: In 2 weeks with primary OB provider. TD: 04/11/2018 12:09 BI
[2018-04-12] MEDS: oxyCODONE 5 MG TABLET PO PRN ×2 (05:11→09:05)
[2018-04-12] MEDS: SODIUM CHLORIDE FLUSH 0.9% 10 ML SYRINGE IVP SCH (07:49)
[2018-04-12] MEDS: FERROUS SULFATE 325 MG TABLET PO SCH (09:04)
[2018-04-12] MEDS: DOCUSATE SODIUM 100 MG CAPSULE PO SCH (09:05)
[2018-04-12] MEDS: CELECOXIB 100 MG CAPSULE PO SCH (09:05)
[2018-04-12 09:17] VITALS: BP 133/76
--- NOTE | 2018-04-12 14:20 | Labor Flowsheet ---
Labor Flowsheet Datetime Report Generated by CPN: 04/12/2018 14:20 Datetime: 04/09/2018 06:13 Tocolytics: Terbutaline 0.25mg Subcutaneous Medication Comments: Dr. Mcgraw notified of deep FHR decel as pt was rushed to OR, terb given on the way to the OR per Dr. Mcgraw's okay Datetime: 04/09/2018 06:12 UTERINE ACTIVITY Monitor Mode: External Frequency (min): 1-3 Duration (sec): 60-140 Pattern: Normal: <= 5 Contractions in 10 Minutes Resting Tone (Palpate): Relaxed ASSESSMENT A Monitor Mode: External US FHR Baseline Rate : 135 Variability: Minimal - Undetectable to <=5 bpm Accelerations: 15X15 Decelerations: Variable; Prolonged Category: Category II Datetime: 04/09/2018 06:10 Patient Care Comments: SUPERVISOR PATCHING and SAFETY BELT INSTALLER in pt's room preparing pt for departure to C/S, OB provider w aiting in OR Datetime: 04/09/2018 06:09 Pulse: 65 SpO2 (%): 100 LaborFlag: Labor Datetime: 04/09/2018 06:04 VITAL SIGNS NBP Sys/June/Mean (mmHg): 126 : 78 : 90 Datetime: 04/09/2018 06:00 Respirations: 16 Comments: possible subtle late decel PAIN Pain Scale: 0 TEACHING Instructional Method: Verbal Plan of Care: Plan of Care Discussed Datetime: 04/09/2018 05:57 Temperature (C): 36.3 Datetime: 04/09/2018 05:39 Unit Routine: Medications Datetime: 04/09/2018 05:30 Quality: Moderate Datetime: 04/09/2018 05:20 Actions for Decelerations: Oxygen Applied MEDICATIONS Pitocin (milliunits): Discontinued Oxygen Amount (LPM): 10 Oxygen Method: Face Mask Datetime: 04/09/2018 05:00 Pitocin Checklist: At Least 1 Acceleration of 15 bpm x 15 Seconds in 30 Minutes or Adequate Variabi lity; No More than 1 Late Deceleration Occurred in Past 30 Minutes; No More than 2 Variable Decelerat ions > 60 Seconds in Duration and decreasing >60 bpm in 30 minutes; No More than 5 Uterine Contractio ns in 10 Minutes for any 20 Minute Interval; Uterus Palpates Soft between Contractions Datetime: 04/09/2018 04:30 Provider Notified (Name): Dr. Mcgraw Datetime: 04/09/2018 04:14 Pain Management: Epidural; Pain Scale/Goals; Comfort Measures Medications: Pitocin Datetime: 04/09/2018 04:12 Patient Position/Activity: Left Tilt Datetime: 04/09/2018 03:50 Monitor Interventions for FHR: Ultrasound Adjusted Datetime: 04/09/2018 03:49 Amniotic Fluid Color: Light Meconium Datetime: 04/09/2018 03:41 I/O Interventions: Fam Cath Inserted Datetime: 04/09/2018 03:17 Communication Comments: terbutaline drawn and ready at bedside per provider's request, but per prov ider RN not to administer at this time Datetime: 04/09/2018 03:14 VAGINAL EXAM Dilatation (cm): 1.0 Effacement (%): 25 Station: -3 Exam by: Dr. Mcgraw Cervix, Consistency: Soft Cervix, Position: Posterior Datetime: 04/09/2018 03:11 COMMUNICATION Communication: Provider at Bedside Datetime: 04/09/2018 02:39 Pain Assessment Comments: epidural in place, pt aware of contractions but reports no pain, only pre ssure. Datetime: 04/09/2018 02:30 Anesthesia Level Check: T10- Umbilicus Datetime: 04/09/2018 02:14 Epidural Procedure: Loading Dose Datetime: 04/09/2018 02:03 Antiemetics/Antacids: Zofran (mg) @ 4 Datetime: 04/09/2018 02:01 ANESTHESIA Anesthesia Plans: Epidural Epidural Positioning: Sitting Datetime: 04/09/2018 01:25 Pain Presence: Intermittent Pain Type: Contraction Pain Location: Abdomen; Back Pain Coping: Talking Through Contractions; Breathing Through Contractions; Requesting Pain Medicati on or Epidural Datetime: 04/09/2018 01:10 Membrane Status: Ruptured Membranes Rupture Method: Spontaneous Amniotic Fluid Amount: Small Amniotic Fluid Odor: Normal Nitrazine: Positive Datetime: 04/09/2018 00:46 Pain Relief Measures: Comfort Measures Datetime: 04/08/2018 23:28 MATERNAL ASSESSMENT Level of Consciousness: Fully Conscious Breath Sounds, Left: Clear and Equal Breath Sounds, Right: Clear and Equal Nausea/Vomiting: Denies Labor/Induction: Augmentation Datetime: 04/08/2018 22:30 Contraction Comments: irregular pattern Datetime: 04/08/2018 21:53 Analgesics/Sedatives: Ambien (mg) @ 5 Datetime: 04/08/2018 21:02 Stage of : Labor Datetime: 04/08/2018 19:25 Monitor Interventions for UA: [place] Adjusted Datetime: 04/08/2018 18:42 PATIENT CARE IV/Blood Work: IV Started Datetime: 04/08/2018 18:11 Vaginal Bleeding: None Datetime: 04/08/2018 18:09 Provider Reviewed Strip: Yes Strip Reviewed by: Dr. Mcgraw
== END 2018-04-12 13:45 | disposition home or self-care (01) | DRG 765 ==
LOC: WFO 16:02 → FBP 16:04 → WFO 16:48 → FBP 16:49
PROVIDERS: ADMIT Obstetrics & Gynecology; ATTEND Obstetrics & Gynecology
PROC: 3E033VJ Introduction of Other Hormone into Peripheral Vein, Percutaneous Approach (ICD-10-PCS; 2018-04-08)
PROC: 10D00Z1 Extraction of Products of Conception, Low, Open Approach (ICD-10-PCS; principal; 2018-04-09 06:00)
DX: O45.93 Premature separation of placenta, unspecified, third trimester (principal); D62 Acute posthemorrhagic anemia; O76 Abnormality in fetal heart rate and rhythm complicating labor and delivery; O77.0 Labor and delivery complicated by meconium in amniotic fluid; Z37.0 Single live birth; O48.0 Post-term pregnancy; Z3A.40 40 weeks gestation of pregnancy; O99.89 Other specified diseases and conditions complicating pregnancy, childbirth and the puerperium; M54.32 Sciatica, left side; O43.893 Other placental disorders, third trimester; O99.02 Anemia complicating childbirth; D50.9 Iron deficiency anemia, unspecified; O99.52 Diseases of the respiratory system complicating childbirth; J45.909 Unspecified asthma, uncomplicated; Z23 Encounter for immunization; Z91.81 History of falling; Z79.899 Other long term (current) drug therapy
CPT/HCPCS: 36415; 80053; 82570; 82803; 84156; 85025; 86850; 86900; 86901; 86920

== ENCOUNTER 2018-07-08 15:21 | Emergency (ER) | payer OTHER ==
[2018-07-08 15:34] VITALS: BP 118/65
--- NOTE | 2018-07-08 18:19 | ED Physician Documentation ---
PD HPI URI - Stated complaint Stated Complaint: CHEST TIGHTNING/HERRERA X 3 DAYS - Chief complaint Chief Complaint: General - History obtained from History obtained from: Patient - History of Present Illness Timing - onset: How many days ago (3) Timing duration: Days (3) Timing details: Gradual onset, Still present Associated symptoms: Nasal congestion, Sore throat, Dry cough, Dyspnea. No: Fever, NVD Contributing factors: Sick contact (her child had symptoms started a week prior) Improves by: No: Medication Similar symptoms before: Has not had sx before Recently seen: Not recently seen Review of Systems Constitutional: denies: Fever Nose: reports: Rhinorrhea / runny nose, Congestion Throat: reports: Sore throat Cardiac: denies: Chest pain / pressure Respiratory: reports: Dyspnea, Cough GI: denies: Nausea, Vomiting, Diarrhea : denies: Dysuria Skin: denies: Rash PD PAST MEDICAL HISTORY - Past Medical History Cardiovascular: None Respiratory: Asthma Endocrine/Autoimmune: None GI: None DIRECTOR CRITICAL CARE: Other : None HEENT: None Psych: None Musculoskeletal: Other Derm: None - Past Surgical History Past Surgical History: Yes General: Appendectomy /DIRECTOR CRITICAL CARE: Other - Present Medications Home Medications: Ambulatory Orders Medication Instructions Recorded Confirmed Albuterol Sulf [Ventolin Hfa 1 - 2 puffs INH Q4HR PRN #1 inhaler 09/08/17 03/09/18 Inhaler] Vitamin [Trinatal Rx 1] 1 each PO DAILY 09/20/17 03/09/18 Celecoxib [CeleBREX] 200 mg PO BID PRN #30 capsule 04/11/18 Docusate Sodium [Dulcolax Stool 100 mg PO BID PRN #60 capsule 04/11/18 Softener] Iron Polysaccharide Complex [Pro 180 mg PO DAILY #60 capsule 04/11/18 Fe] oxyCODONE [Roxicodone] 5 mg PO Q4HR PRN #20 tablet 04/11/18 Albuterol Sulf [Ventolin Hfa 1 - 2 puffs INH Q4HR PRN #1 inhaler 07/08/18 Inhaler] Benzonatate [Tessalon Perle] 100 - 200 mg PO TID PRN #30 capsule 07/08/18 Cetirizine [ZyrTEC] 10 mg PO DAILY #15 tablet 07/08/18 Dexamethasone [Decadron] 4 mg PO DAILY #5 tablet 07/08/18 - Allergies Allergies/Adverse Reactions: Allergies Allergy/AdvReac Type Severity Reaction Status Date / Time acetaminophen Allergy Severe Anaphylaxis Verified 07/08/18 15:34 khan AdvReac Hives Verified 07/08/18 15:34 - Social History Does the pt smoke?: No Smoking Status: Never smoker Does the pt drink ETOH?: No Does the pt have substance abuse?: No - Immunizations Immunizations are current?: Yes - POLST Patient has POLST: No POLST Status: Full Code PD ED PE NORMAL - Vitals Vital signs reviewed: Yes - General General: Alert and oriented X 3, No acute distress, Well developed/nourished - HEENT HEENT: Ears normal, Pharynx benign - Neck Neck: Supple, no meningeal sign, No adenopathy - Cardiac Cardiac: RRR, No murmur - Respiratory Respiratory: Clear bilaterally - Abdomen Abdomen: Soft, Non tender - Derm Derm: Normal color, Warm and dry - Extremities Extremities: No calf tenderness / cord - Neuro Neuro: Alert and oriented X 3, No motor deficit, Normal speech Results - Vitals Vitals: Oxygen O2 Source [Without Activity] Room air O2 Source Room air Departure - Departure Disposition: 01 Home, Self Care Clinical Impression: Upper respiratory infection Qualifiers: URI type: unspecified URI Qualified Code(s): J06.9 - Acute upper respiratory infection, unspecified Condition: Stable Record reviewed to determine appropriate education?: Yes Instructions: ED Upper Resp Infec No Abx Tx Prescriptions: Albuterol Sulf [Ventolin Hfa Inhaler] 1 - 2 puffs INH Q4HR PRN #1 inhaler PRN Reason: Shortness Of Air/Wheezing Benzonatate [Tessalon Perle] 100 - 200 mg PO TID PRN #30 capsule PRN Reason: Cough Cetirizine [ZyrTEC] 10 mg PO DAILY #15 tablet Dexamethasone [Decadron] 4 mg PO DAILY #5 tablet Comments: These types of illnesses typically are viral. We will treat the symptoms with albuterol inhaler 2-3 puffs 4 times a day for the next week and as needed beyond that. Decadron steroid daily for 5 more days. Tessalon if needed for cough. Cetirizine antihistamine for congestion daily for the next week or 2. ibuprofen if needed for fevers or chills. I would presume you will be getting better over the next several days. Discharge Date/Time: 07/08/18 18:48
[2018-07-08] MEDS: CETIRIZINE 10 MG TABLET PO STA (18:42)
[2018-07-08] MEDS: DEXAMETHASONE 10 MG/ML VIAL PO STA (18:43)
== END 2018-07-08 18:48 | disposition home or self-care (01) ==
LOC: ED 15:21
DX: J06.9 Acute upper respiratory infection, unspecified (principal)
CPT/HCPCS: 99283

== ENCOUNTER 2018-07-15 22:09 | Outpatient (CLI) | payer OTHER | END 2018-07-15 22:10 | disposition critical access hospital (66) | LOC: EMS 22:09 | PROVIDERS: ATTEND Surgery | DX: R05 Cough (principal) | CPT/HCPCS: A0425; A0427 ==

== ENCOUNTER 2018-08-25 08:18 | Emergency (ER) | payer OTHER ==
[2018-08-25] MEDS ORDERED: SODIUM CHLORIDE 0.9% 1,000 ML IV ONE ×2 (08:25→11:14)
--- NOTE | 2018-08-25 08:28 | ED Physician Documentation ---
PD HPI NVD - Stated complaint Stated Complaint: ABD PX - History obtained from History obtained from: Patient, EMS - History of Present Illness Timing - onset: Enter time (2029), Last night Timing - duration: Hours Timing - details: Abrupt onset, Still present Associated symptoms: Abdominal pain Contributing factors: Bad food Improved by: Vomiting Similar symptoms before: Has not had sx before Recently seen: Not recently seen - Additonal information Additional information: 23-year-old female had some food at [id number] about noon yesterday and she began to feel some nausea following that and about 8:30 at night she began to vomit violently and she has had vomiting all night long. This morning she was on the way [place] the [place] to check on her son when she collapsed. She has called the ambulance and feels improved after a dose of Zofran. She denies any injury to her head with the fall and denies illness prior to the onset of her symptoms yesterday afternoon. Review of Systems Constitutional: denies: Fever Eyes: denies: Decreased vision Ears: denies: Ear pain Nose: denies: Congestion Throat: denies: Sore throat Cardiac: denies: Chest pain / pressure, Palpitations Respiratory: denies: Dyspnea, Cough GI: reports: Abdominal Pain, Nausea, Vomiting. denies: Constipation, Diarrhea : denies: Dysuria, Frequency PD PAST MEDICAL HISTORY - Past Medical History Cardiovascular: None Respiratory: Asthma Endocrine/Autoimmune: None GI: None TECHNICAL ASSOC: Other : None HEENT: None Psych: None Musculoskeletal: Other Derm: None - Past Surgical History Past Surgical History: Yes General: Appendectomy /TECHNICAL ASSOC: Other - Present Medications Home Medications: Ambulatory Orders Medication Instructions Recorded Confirmed RX: Albuterol Sulf [Ventolin Hfa 1 - 2 puffs INH Q4HR PRN #1 inhaler 09/08/17 03/09/18 Inhaler] RX: Vitamin [Trinatal Rx 1 each PO DAILY 09/20/17 03/09/18 1] RX: Albuterol Sulf [Ventolin Hfa 1 - 2 puffs INH Q4HR PRN #1 inhaler 07/08/18 Inhaler] Ondansetron Odt [Zofran] 4 mg TL Q6H PRN #10 tablet 08/25/18 Sertraline HCl [Zoloft] 100 mg PO 08/25/18 - Allergies Allergies/Adverse Reactions: Allergies Allergy/AdvReac Type Severity Reaction Status Date / Time acetaminophen Allergy Severe Anaphylaxis Verified 07/08/18 15:34 khan AdvReac Hives Verified 07/08/18 15:34 - Social History Does the pt smoke?: No Smoking Status: Never smoker Does the pt drink ETOH?: No Does the pt have substance abuse?: No - Immunizations Immunizations are current?: Yes - POLST Patient has POLST: No POLST Status: Full Code PD ED PE NORMAL - Vitals Vital signs reviewed: Yes - General General: Alert and oriented X 3, No acute distress, Well developed/nourished - HEENT HEENT: Atraumatic, PERRL, EOMI - Neck Neck: Supple, no meningeal sign, No bony TTP - Cardiac Cardiac: RRR, Other (2/6 holosystolic high pitched murmer (? aortic stenosis vs. flow)) - Respiratory Respiratory: No respiratory distress, Clear bilaterally - Abdomen Abdomen: Soft, Non tender - Back Back: No CVA TTP, No spinal TTP - Derm Derm: Normal color, Warm and dry, No rash - Extremities Extremities: No deformity, No edema - Neuro Neuro: Alert and oriented X 3, materials buyer 2-12 intact, No motor deficit, No sensory deficit, Normal speech Eye Opening: Spontaneous Motor: Obeys Commands Verbal: Oriented GCS Score: 15 - Psych Psych: Normal mood, Normal affect Results - Vitals Vitals: Vital Signs - 24 hr 08/25/18 08/25/18 08/25/18 08:26 08:36 10:29 Temperature 37.2 C Heart Rate 85 74 90 Respiratory 16 14 18 Rate Blood Pressure 124/78 119/76 133/78 H O2 Saturation 99 99 99 08/25/18 08/25/18 12:00 14:19 Temperature 37.2 C Heart Rate 70 66 Respiratory 16 16 Rate Blood Pressure 128/81 H 126/85 H O2 Saturation 99 99 Oxygen O2 Source [Without Activity] Room air O2 Source Room air - Labs Labs: Laboratory Tests 08/25/18 08/25/18 08/25/18 08:35 08:35 08:35 WBC 10.6 RBC 4.85 Hgb 11.0 L Hct 34.4 L MCV 70.9 L MCH 22.7 L MCHC 32.1 RDW 16.6 H Plt Count 245 MPV 7.2 L Neut # (Auto) 10.0 H Lymph # (Auto) 0.2 L [place] # (Auto) 0.3 Eos # (Auto) 0.0 Baso # (Auto) 0.1 Absolute Nucleated RBC 0.00 Nucleated RBC % 0.0 Sodium 136 Potassium 3.3 L Chloride 104 Carbon Dioxide 23 Anion Gap 9.0 BUN 19 Creatinine 0.7 Estimated GFR (MDRD) 128 Glucose 93 Calcium 8.9 Total Bilirubin 0.7 AST 42 ALT 26 Alkaline Phosphatase 54 Troponin I < 0.04 Total Protein 7.1 Albumin 3.7 Globulin 3.4 Albumin/Globulin Ratio 1.1 Lipase 24 Urine Color Urine Clarity Urine pH Ur Specific [place] Urine Protein Urine Glucose (UA) Urine Ketones Urine Occult Blood Urine Nitrite Urine Bilirubin Urine Urobilinogen Ur Leukocyte Esterase Ur Microscopic Review Urine Culture Comments Urine HCG, Qual 08/25/18 12:40 WBC RBC Hgb Hct MCV MCH MCHC RDW Plt Count MPV Neut # (Auto) Lymph # (Auto) [place] # (Auto) Eos # (Auto) Baso # (Auto) Absolute Nucleated RBC Nucleated RBC % Sodium Potassium Chloride Carbon Dioxide Anion Gap BUN Creatinine Estimated GFR (MDRD) Glucose Calcium Total Bilirubin AST ALT Alkaline Phosphatase Troponin I Total Protein Albumin Globulin Albumin/Globulin Ratio Lipase Urine Color YELLOW Urine Clarity CLEAR Urine pH 6.0 Ur Specific [place] >=1.030 H Urine Protein NEGATIVE Urine Glucose (UA) NEGATIVE Urine Ketones >=80 H Urine Occult Blood TRACE-LYSE Urine Nitrite NEGATIVE Urine Bilirubin NEGATIVE Urine Urobilinogen 2 H Ur Leukocyte Esterase NEGATIVE Ur Microscopic Review NOT INDICATED Urine Culture Comments NOT INDICATED Urine HCG, Qual NEGATIVE PD MEDICAL DECISION MAKING - ED course Complexity details: reviewed old records, reviewed results, re-evaluated patient, considered differential, d/w patient ED course: 23-year-old female with acute nausea and vomiting is dehydrated on arrival to the emergency department and is administered saline and Zofran with slow improvement. Departure - Departure Disposition: 01 Home, Self Care Clinical Impression: Gastroenteritis, Dehydration Condition: Stable Instructions: ED Dehydration, ED Food Poison Or Gastroenteritis Follow-Up: NADINE Lay [Provider Group] Prescriptions: Ondansetron Odt [Zofran] 4 mg TL Q6H PRN #10 tablet PRN Reason: Nausea / Vomiting Forms: Activity restrictions Discharge Date/Time: 08/25/18 14:20
[2018-08-25 08:48] LABS: BASOPHILS # (AUTO) 0.1 10^3/uL (0.0-0.1); BASOPHILS % (AUTO) 0.5 %; EOSINOPHILS % (AUTO) 0.1 %; LYMPHOCYTES # (AUTO) 0.2 10^3/uL (1.5-3.5); LYMPHOCYTES % (AUTO) 2.1 %; MEAN CORPUSCULAR HEMOGLOBIN 22.7 pg (27.0-31.0); MEAN CORPUSCULAR HGB CONC 32.1 g/dL (32.0-36.0); MEAN CORPUSCULAR VOLUME 70.9 fL (81.0-99.0); MEAN PLATELET VOLUME 7.2 fL (7.9-10.8); MONOCYTES # (AUTO) 0.3 10^3/uL (0.0-1.0); NEUTROPHILS % (AUTO) 94.3 %; PLT - PLATELET COUNT 245 10^3/uL (130-450); RED BLOOD COUNT 4.85 10^6/uL (4.20-5.40); RED CELL DISTRIBUTION WIDTH 16.6 % (12.0-15.0); WHITE BLOOD COUNT 10.6 x10^3/uL (4.8-10.8)
[2018-08-25 08:59] LABS: ALBUMIN 3.7 g/dL (3.2-5.5); ALBUMIN/GLOBULIN RATIO 1.1 (1.0-2.2); BILIRUBIN,TOTAL 0.7 mg/dL (0.2-1.0); CALCIUM 8.9 mg/dL (8.5-10.3); CREATININE 0.7 mg/dL (0.4-1.0); TOTAL PROTEIN 7.1 g/dL (6.7-8.2)
[2018-08-25] MEDS ORDERED: ONDANSETRON 4 MG/2 ML VIAL IVP STA (10:30)
[2018-08-25 12:49] LABS: BILIRUBIN,URINE NEGATIVE (NEGATIVE); GLUCOSE, URINE (UA) NEGATIVE (NEGATIVE); KETONES,URINE (UA) >=80 mg/dL (NEGATIVE); LEUKOCYTE ESTERASE, URINE NEGATIVE (NEGATIVE); NITRITE,URINE NEGATIVE (NEGATIVE); OCCULT BLOOD,URINE TRACE-LYSE (NEGATIVE); PROTEIN,URINE NEGATIVE (NEGATIVE); UROBILINOGEN,URINE 2 E.U./dL (NORMAL)
[2018-08-25 12:51] LABS: CLARITY,URINE CLEAR (CLEAR); HCG UR QUAL NEGATIVE
[2018-08-25] MEDS ORDERED: KETOROLAC 30 MG/ML VIAL IVP STA (14:01)
[2018-08-25 14:20] VITALS: BP 126/85
== END 2018-08-25 14:20 | disposition home or self-care (01) ==
LOC: EDUNIT# → ED 08:18
DX: K52.9 Noninfective gastroenteritis and colitis, unspecified (principal); E86.0 Dehydration; R01.1 Cardiac murmur, unspecified
CPT/HCPCS: 36415; 80053; 81001; 81003; 81025; 83690; 84484; 85025; 87086; 96361; 96374; 96375; 99283

== ENCOUNTER 2018-10-12 06:13 | Emergency (ER) | payer OTHER ==
[2018-10-12 06:20] VITALS: BP 119/61
[2018-10-12] MEDS ORDERED: DEXAMETHASONE 10 MG/ML VIAL PO STA (07:35)
[2018-10-12] MEDS ORDERED: KETOROLAC 60 MG/2 ML VIAL IM STA (07:35)
--- NOTE | 2018-10-12 07:42 | ED Physician Documentation ---
PD HPI BACK PAIN - Stated complaint Stated Complaint: BACK PX/LEG NUMBNESS - Chief complaint Chief Complaint: Back Pain - History obtained from History obtained from: Patient - History of Present Illness Timing - onset: How many years ago (1) Timing - details: Waxing and waning Location: Lower Quality: Similar to prior episodes Worsened by: Movement - Additional information Additional information: The patient is a 23-year-old female who complains of left lower back pain that is worse this morning than it has been previously. She reports a history of low back pain for the past year, since she was . It has been waxing and waning since that time. She states that pain shoots down her left leg. She denies fever, urinary incontinence, numbness or weakness. Her last menstrual period started yesterday. Review of Systems Constitutional: denies: Fever Nose: denies: Congestion Respiratory: denies: Dyspnea, Cough GI: denies: Abdominal Pain, Nausea, Vomiting : reports: LMP (Started yesterday.). denies: Dysuria, Incontinent Skin: denies: Rash Musculoskeletal: reports: Back pain. 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: Other : None HEENT: None Psych: None Musculoskeletal: Other Derm: None - Past Surgical History Past Surgical History: Yes General: Appendectomy /CARNALLITE PLANT OPERATOR: section, Other - Present Medications Home Medications: Ambulatory Orders Medication Instructions Recorded Confirmed Albuterol Sulf [Ventolin Hfa 1 - 2 puffs INH Q4HR PRN #1 inhaler 09/08/17 03/09/18 Inhaler] Vitamin [Trinatal Rx 1] 1 each PO DAILY 09/20/17 03/09/18 Albuterol Sulf [Ventolin Hfa 1 - 2 puffs INH Q4HR PRN #1 inhaler 07/08/18 Inhaler] Ondansetron Odt [Zofran] 4 mg TL Q6H PRN #10 tablet 08/25/18 Sertraline HCl [Zoloft] 100 mg PO 08/25/18 Cyclobenzaprine [Flexeril] 10 mg PO TID PRN #20 tablet 10/12/18 Lidocaine Patch 5% [Lidoderm Patch] 1 patch TOP DAILY PRN #10 patch 10/12/18 - Allergies Allergies/Adverse Reactions: Allergies Allergy/AdvReac Type Severity Reaction Status Date / Time acetaminophen Allergy Severe Anaphylaxis Verified 10/12/18 06:20 khan AdvReac Hives Verified 10/12/18 06:20 - Social History Does the pt smoke?: No Smoking Status: Never smoker Does the pt drink ETOH?: No Does the pt have substance abuse?: No - Immunizations Immunizations are current?: Yes - POLST Patient has POLST: No POLST Status: Full Code PD ED PE NORMAL - Vitals Vital signs reviewed: Yes (normal) - General General: Alert and oriented X 3, Well developed/nourished - HEENT HEENT: Atraumatic, Pharynx benign - Neck Neck: No adenopathy, No JVD - Cardiac Cardiac: RRR, No murmur - Respiratory Respiratory: No respiratory distress, Clear bilaterally - Abdomen Abdomen: Soft, Non tender - Back Back: No CVA TTP, No spinal TTP, Other (Tender to palpation in the left paralumbar region and over the left sacroiliac joint. No tenderness to palpation over the spinous processes.) - Derm Derm: No rash - Extremities Extremities: No edema, No calf tenderness / cord, Other (Straight leg raise test is negative bilaterally.) - Neuro Neuro: Alert and oriented X 3, No motor deficit, No sensory deficit Results - Vitals Vitals: Vital Signs - 24 hr 10/12/18 06:16 Temperature 36.3 C L Heart Rate 88 Respiratory 18 Rate Blood Pressure 119/61 O2 Saturation 98 Oxygen O2 Source [Without Activity] Room air O2 Source Room air - Labs Labs: Laboratory Tests 10/12/18 07:47 Urine Color YELLOW Urine Clarity HAZY Urine pH 6.0 Ur Specific [place] 1.020 Urine Protein TRACE Urine Glucose (UA) NEGATIVE Urine Ketones TRACE Urine Occult Blood LARGE H Urine Nitrite NEGATIVE Urine Bilirubin NEGATIVE Urine Urobilinogen 0.2 (NORMAL) Ur Leukocyte Esterase NEGATIVE Urine RBC TNTC H Urine WBC 0-3 Ur Squamous Epith Cells FEW Squamous Urine Bacteria Moderate H Urine Mucus Few Strands Ur Microscopic Review INDICATED Urine Culture Comments INDICATED Urine HCG, Qual NEGATIVE PD MEDICAL DECISION MAKING - ED course Complexity details: reviewed old records, reviewed results, re-evaluated patient, considered differential, d/w patient ED course: The patient's lower back pain is most consistent with left sided sciatica. The clinical presentation does not suggest epidural abscess, spinal stenosis, or cauda equina syndrome. Treatment in the emergency department included administr ation of Dexamethasone 10 mg orally, and Toradol 60 mg IM. The patient is being discharged with prescription for lidocaine patch and for flexeril. I discussed with her the expected course of illness, symptomatic treatment and outpatient follow-up, as well as potentially worrisome signs or symptoms that should prompt reevaluation in the emergency department. Departure - Departure Disposition: 01 Home, Self Care Clinical Impression: Back pain Qualifiers: Back pain location: low back pain Chronicity: acute Back pain laterality: left Sciatica presence: with sciatica Sciatica laterality: sciatica of left side Qualified Code(s): M54.42 - Lumbago with sciatica, left side Condition: Stable Instructions: ED Sciatica Follow-Up: NADINE Lay [Provider Group] Prescriptions: Cyclobenzaprine [Flexeril] 10 mg PO TID PRN #20 tablet PRN Reason: Spasms Lidocaine Patch 5% [Lidoderm Patch] 1 patch TOP DAILY PRN #10 patch PRN Reason: pain Comments: Apply ice pack to your lower back intermittently for the next 3 or 4 days. You can use ibuprofen, up to 800 mg 3 times daily for its anti-inflammatory effect. You can use as lidocaine patch and Flexeril as prescribed if needed for pain or muscle spasms. Let pain be your guide to activity level. Follow up with your primary physician within 1-2 weeks. Call to schedule an appointment. Return to the emergency department if you develop increasing pain, numbness or weakness, urinary incontinence, or otherwise worsening symptoms. Forms: Activity restrictions Discharge Date/Time: 10/12/18 09:03
[2018-10-12 08:00] LABS: BILIRUBIN,URINE NEGATIVE (NEGATIVE); GLUCOSE, URINE (UA) NEGATIVE (NEGATIVE); KETONES,URINE (UA) TRACE mg/dL (NEGATIVE); LEUKOCYTE ESTERASE, URINE NEGATIVE (NEGATIVE); NITRITE,URINE NEGATIVE (NEGATIVE); OCCULT BLOOD,URINE LARGE (NEGATIVE); PROTEIN,URINE TRACE mg/dL (NEGATIVE); UROBILINOGEN,URINE 0.2 (NORMAL) E.U./dL (NORMAL)
[2018-10-12 08:01] LABS: CLARITY,URINE HAZY (CLEAR); HCG UR QUAL NEGATIVE
[2018-10-12 08:09] LABS: MUCUS,URINE Few Strands; RBC,URINE TNTC /HPF (0-5); SQUAMOUS EPITHELIAL CELL,UR FEW Squamous (<= Few)
[2018-10-12 08:10] LABS: BACTERIA,URINE Moderate /HPF (None Seen)
== END 2018-10-12 09:03 | disposition home or self-care (01) ==
LOC: ED 06:13
DX: M54.42 Lumbago with sciatica, left side (principal)
CPT/HCPCS: 81001; 81003; 81025; 87086; 96372; 99283

== ENCOUNTER 2018-12-16 00:08 | Emergency (ER) | payer OTHER ==
--- NOTE | 2018-12-16 00:24 | ED Physician Documentation ---
History of Present Illness - Stated complaint Stated Complaint: CP/ABD PX/NAUSEA - Chief complaint Chief Complaint: Abd Pain - History obtained from History obtained from: Patient - Additonal information Additional information: Patient is a 23-year-old female presenting with multiple complaints over the past 1 week. Patient reports that her son had cold symptoms earlier which she attributes to her now nasal congestion and purulent rhinorrhea. Patient feels that her nasal congestion is causing her have a headache. She denies ear or throat complaints. Patient's chest complaints are related to generalized congestion and productive cough but she otherwise denies significant pain or shortness of breath. Patient also complains of left lower quadrant abdominal pain associate with nausea but no vomiting. She denies urinary or stool changes. No vaginal bleeding or discharge with last menstrual period about 2 weeks ago. No other improving or worsening factors noted. Review of Systems Constitutional: denies: Fever Cardiac: denies: Chest pain / pressure Respiratory: reports: Cough GI: reports: Abdominal Pain, Nausea. 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 HEENT: None Psych: None Musculoskeletal: Other Derm: None - Past Surgical History Past Surgical History: Yes General: Appendectomy /RAILCAR SWITCHER: section, Other - Present Medications Home Medications: Ambulatory Orders Medication Instructions Recorded Confirmed Albuterol Sulf [Ventolin Hfa 1 - 2 puffs INH Q4HR PRN #1 inhaler 09/08/17 03/09/18 Inhaler] Vitamin [Trinatal Rx 1] 1 each PO DAILY 09/20/17 03/09/18 Albuterol Sulf [Ventolin Hfa 1 - 2 puffs INH Q4HR PRN #1 inhaler 07/08/18 Inhaler] Ondansetron Odt [Zofran] 4 mg TL Q6H PRN #10 tablet 08/25/18 Sertraline HCl [Zoloft] 100 mg PO 08/25/18 Cyclobenzaprine [Flexeril] 10 mg PO TID PRN #20 tablet 10/12/18 Azithromycin 250 mg PO DAILY 5 Days #6 tab 12/16/18 - Allergies Allergies/Adverse Reactions: Allergies Allergy/AdvReac Type Severity Reaction Status Date / Time acetaminophen Allergy Severe Anaphylaxis Verified 12/16/18 00:16 khan AdvReac Hives Verified 12/16/18 00:16 - Social History Does the pt smoke?: No Smoking Status: Never smoker Does the pt drink ETOH?: No Does the pt have substance abuse?: No - Immunizations Immunizations are current?: Yes - POLST Patient has POLST: No POLST Status: Full Code PD ED PE NORMAL - Vitals Vital signs reviewed: Yes - General General: Alert and oriented X 3, No acute distress, Well developed/nourished - HEENT HEENT: Atraumatic, Moist mucous membranes, Pharynx benign - Cardiac Cardiac: RRR, No murmur - Respiratory Respiratory: No respiratory distress, Clear bilaterally - Abdomen Abdomen: Soft, Non tender, Non distended - Derm Derm: Normal color, Warm and dry, No rash - Extremities Extremities: No deformity, No tenderness to palpate - Neuro Neuro: Alert and oriented X 3, No motor deficit, No sensory deficit - Psych Psych: Normal mood, Normal affect Results - Vitals Vitals: Vital Signs - 24 hr 12/16/18 00:13 Temperature 36.3 C L Heart Rate 87 Respiratory 16 Rate Blood Pressure 125/92 H O2 Saturation 100 Oxygen O2 Source [Without Activity] Room air O2 Source Room air - Labs Labs: Laboratory Tests 12/16/18 12/16/18 12/16/18 00:40 00:50 00:50 WBC 12.5 H RBC 4.86 Hgb 10.8 L Hct 34.8 L MCV 71.6 L MCH 22.1 L MCHC 30.9 L RDW 15.0 Plt Count 271 MPV 8.1 Neut # (Auto) 7.8 H Lymph # (Auto) 3.5 [place] # (Auto) 0.9 Eos # (Auto) 0.2 Baso # (Auto) 0.0 Absolute Nucleated RBC 0.01 Nucleated RBC % 0.1 Sodium 135 Potassium 3.9 Chloride 103 Carbon Dioxide 24 Anion Gap 8.0 BUN 21 H Creatinine 0.6 Estimated GFR (MDRD) 153 Glucose 99 Calcium 9.4 Total Bilirubin 0.4 AST 19 ALT 16 Alkaline Phosphatase 65 Total Protein 7.5 Albumin 3.8 Globulin 3.7 Albumin/Globulin Ratio 1.0 Lipase 29 Urine Color YELLOW Urine Clarity CLEAR Urine pH 7.0 Ur Specific [place] 1.010 Urine Protein NEGATIVE Urine Glucose (UA) NEGATIVE Urine Ketones NEGATIVE Urine Occult Blood NEGATIVE Urine Nitrite NEGATIVE Urine Bilirubin NEGATIVE Urine Urobilinogen 0.2 (NORMAL) Ur Leukocyte Esterase NEGATIVE Ur Microscopic Review NOT INDICATED Urine Culture Comments NOT INDICATED Urine HCG, Qual NEGATIVE PD MEDICAL DECISION MAKING - ED course Complexity details: reviewed results, re-evaluated patient, considered differential, d/w patient ED course: Patient is presenting with a constellation of symptoms. She describes symptoms that would be indicative of viral illness, URI, sinusitis, as well as pneumonia. Have lower suspicion for PE, ACS, TN, unstable angina, but considered. Patient also complains of abdominal pain and left lower quadrant raising concern for stool burden, small bowel obstruction, diverticulitis, but also considered AAA, renal disease, UTI, as well as gallbladder disease and pancreatitis. Patient has had previous appendectomy making appendicitis much less likely. Also considered other pelvic etiologies, but patient denies vaginal complaints making such less likely. Patient started on IV fluid, as well as ibuprofen and Zofran. Screening lab work returned with mild leukocytosis, but was otherwise relativ viri unremarkable. testing and urinalysis unremarkable. CT abdomen/pelvis obtained with evidence of right lower lobe pneumonia and moderate stool burden. Discussed results and recommendations with patient including [id number] medications for constipation, prescription antibiotics for pneumonia, supportive cares, return precautions, and appropriate follow-up. Patient voiced understanding and is comfortable with discharge plan. Departure - Departure Disposition: 01 Home, Self Care Clinical Impression: Pneumonia Qualifiers: Pneumonia type: due to unspecified organism Laterality: right Lung location: lower lobe of lung Qualified Code(s): J18.1 - Lobar pneumonia, unspecified organism Condition: Good Instructions: ED Pneumonia Adult Follow-Up: Anita Reza ARNP [Primary Care Provider] - Within 3 Days Prescriptions: Azithromycin 250 mg PO DAILY 5 Days #6 tab Comments: Please take antibiotics as prescribed for pneumonia. Recommend [id number] laxative or stool softener for constipation. Recommend hydration with Powerade/Gatorade and advancing diet as tolerated. May use ibuprofen/Tylenol as needed for pain and fever relief. Follow-up with primary care physician in next 2 to 3 days and return to ED sooner if experience worsening symptoms or other concerns.
[2018-12-16] MEDS ORDERED: ONDANSETRON 4 MG/2 ML VIAL IVP STA (00:30)
[2018-12-16] MEDS ORDERED: SODIUM CHLORIDE 0.9% 1,000 ML IV ONE (00:30)
[2018-12-16 00:56] LABS: BASOPHILS % (AUTO) 0.4 %; EOSINOPHILS # (AUTO) 0.2 10^3/uL (0.0-0.7); EOSINOPHILS % (AUTO) 1.6 %; HGB - HEMOGLOBIN 10.8 g/dL (12.0-16.0); LYMPHOCYTES # (AUTO) 3.5 10^3/uL (1.5-3.5); LYMPHOCYTES % (AUTO) 27.9 %; MEAN CORPUSCULAR HEMOGLOBIN 22.1 pg (27.0-31.0); MEAN CORPUSCULAR HGB CONC 30.9 g/dL (32.0-36.0); MEAN CORPUSCULAR VOLUME 71.6 fL (81.0-99.0); MEAN PLATELET VOLUME 8.1 fL (7.9-10.8); MONOCYTES # (AUTO) 0.9 10^3/uL (0.0-1.0); MONOCYTES % (AUTO) 7.3 %; NEUTROPHILS # (AUTO) 7.8 10^3/uL (1.5-6.6); NEUTROPHILS % (AUTO) 62.8 %; PLT - PLATELET COUNT 271 10^3/uL (130-450); RED BLOOD COUNT 4.86 10^6/uL (4.20-5.40); WHITE BLOOD COUNT 12.5 x10^3/uL (4.8-10.8)
[2018-12-16 00:56] LABS: BILIRUBIN,URINE NEGATIVE (NEGATIVE); GLUCOSE, URINE (UA) NEGATIVE (NEGATIVE); KETONES,URINE (UA) NEGATIVE (NEGATIVE); LEUKOCYTE ESTERASE, URINE NEGATIVE (NEGATIVE); NITRITE,URINE NEGATIVE (NEGATIVE); OCCULT BLOOD,URINE NEGATIVE (NEGATIVE); PROTEIN,URINE NEGATIVE (NEGATIVE); UROBILINOGEN,URINE 0.2 (NORMAL) E.U./dL (NORMAL)
[2018-12-16 00:57] LABS: CLARITY,URINE CLEAR (CLEAR); HCG UR QUAL NEGATIVE
[2018-12-16 01:07] LABS: ALBUMIN 3.8 g/dL (3.2-5.5); BILIRUBIN,TOTAL 0.4 mg/dL (0.2-1.0); CALCIUM 9.4 mg/dL (8.5-10.3); CREATININE 0.6 mg/dL (0.4-1.0); TOTAL PROTEIN 7.5 g/dL (6.7-8.2)
[2018-12-16] MEDS ORDERED: IBUPROFEN 600 MG TABLET PO STA (01:14)
[2018-12-16] MEDS ORDERED: IOVERSOL 320 100 ML VIAL IVP ONE ×2 (01:36→02:11)
--- NOTE | 2018-12-16 02:28 | CT Report ---
Reason: LLQ pain with nausea Procedure Date: 12/16/2018 Accession Number: [id number] / [id number] Procedure: CT - Abdomen/Pelvis W CPT Code: FULL RESULT: EXAM: CT ABDOMEN AND PELVIS EXAM DATE: 12/16/2018 02:13 AM. CLINICAL HISTORY: Left lower quadrant pain with nausea. COMPARISONS: ABDOMEN/PELVIS W/ 12/29/2016 5:51 PM. TECHNIQUE: Routine helical CT imaging was performed through the abdomen and pelvis. IV contrast: Yes. Enteric contrast: No. Reconstructions: Coronal and sagittal. In accordance with CT protocol optimization, one or more of the following dose reduction techniques were utilized for this exam: automated exposure control, adjustment of mA and/or KV based on patient size, or use of iterative reconstructive technique. FINDINGS: Lung Bases: Right lung base consolidative pneumonia which appears to be within an accessory lobe inferomedially as there is an inferior accessory fissure. Liver: Unremarkable. No suspicious masses. Gallbladder/Bile Ducts: Unremarkable. Spleen: Unremarkable. Pancreas: Unremarkable. Adrenal Glands: Unremarkable. Kidneys: Unremarkable. No suspicious masses or hydronephrosis. Peritoneal Cavity/Bowel: No bowel obstruction or inflammatory process seen. No free air or significant free fluid. No masses or adenopathy. The appendix is out. Moderate stool burden in a redundant colon. Pelvic Organs: Bladder, uterus, and adnexa appear unremarkable. Vasculature: No aneurysms or other significant abnormality. Bones: No significant abnormality. Other: None. IMPRESSION: 1. Right lung base pneumonia which appears to be within an accessory lobe inferomedially. 2. Moderate stool burden with features of chronic constipation. RADIA
[2018-12-16 02:45] VITALS: BP 98/65
== END 2018-12-16 02:49 | disposition home or self-care (01) ==
LOC: ED 00:08
DX: J18.1 Lobar pneumonia, unspecified organism (principal)
CPT/HCPCS: 36415; 74177; 80053; 81003; 81025; 83690; 85025; 96361; 96374; 99283; 99284; A9270; Q9967; 81001; 87086

== ENCOUNTER 2019-01-29 14:15 | Emergency (ER) | payer OTHER ==
[2019-01-29 14:44] LABS: BASOPHILS # (AUTO) 0.1 10^3/uL (0.0-0.1); BASOPHILS % (AUTO) 0.5 %; EOSINOPHILS # (AUTO) 0.1 10^3/uL (0.0-0.7); HGB - HEMOGLOBIN 11.4 g/dL (12.0-16.0); LYMPHOCYTES # (AUTO) 2.7 10^3/uL (1.5-3.5); LYMPHOCYTES % (AUTO) 24.7 %; MEAN CORPUSCULAR HEMOGLOBIN 23.3 pg (27.0-31.0); MEAN CORPUSCULAR HGB CONC 31.2 g/dL (32.0-36.0); MEAN CORPUSCULAR VOLUME 74.6 fL (81.0-99.0); MEAN PLATELET VOLUME 9.8 fL (7.9-10.8); MONOCYTES # (AUTO) 0.6 10^3/uL (0.0-1.0); MONOCYTES % (AUTO) 5.7 %; NEUTROPHILS # (AUTO) 7.5 10^3/uL (1.5-6.6); NEUTROPHILS % (AUTO) 67.6 %; PLT - PLATELET COUNT 268 10^3/uL (130-450); RED BLOOD COUNT 4.89 10^6/uL (4.20-5.40); WHITE BLOOD COUNT 11.1 x10^3/uL (4.8-10.8)
[2019-01-29 14:56] LABS: BILIRUBIN,URINE NEGATIVE (NEGATIVE); GLUCOSE, URINE (UA) NEGATIVE (NEGATIVE); KETONES,URINE (UA) NEGATIVE (NEGATIVE); LEUKOCYTE ESTERASE, URINE NEGATIVE (NEGATIVE); NITRITE,URINE NEGATIVE (NEGATIVE); OCCULT BLOOD,URINE NEGATIVE (NEGATIVE); PROTEIN,URINE NEGATIVE (NEGATIVE); UROBILINOGEN,URINE 2 E.U./dL (NORMAL)
[2019-01-29 14:57] LABS: ALBUMIN 4.3 g/dL (3.2-5.5); ALBUMIN/GLOBULIN RATIO 1.3 (1.0-2.2); BILIRUBIN,TOTAL 0.3 mg/dL (0.2-1.0); CALCIUM 9.6 mg/dL (8.5-10.3); CREATININE 0.7 mg/dL (0.4-1.0); TOTAL PROTEIN 7.6 g/dL (6.7-8.2)
[2019-01-29 15:00] LABS: CLARITY,URINE CLEAR (CLEAR)
[2019-01-29 15:01] LABS: HCG UR QUAL NEGATIVE
[2019-01-29] MEDS ORDERED: oxyCODONE 5 MG TABLET PO STA (17:47)
--- NOTE | 2019-01-29 17:58 | ED Physician Documentation ---
History of Present Illness - Stated complaint Stated Complaint: ABD PX - Chief complaint Chief Complaint: Abd Pain - History obtained from History obtained from: Patient - History of Present Illness Timing: How many days ago (5) Pain level max: 7 Pain level now: 7 - Additonal information Additional information: 23-year-old female with worsening right lower quadrant abdominal pain and right pelvic pain for the past 5 days. States occasionally has pain up into her back. No vaginal bleeding or discharge. Has had ovarian cysts in the past. Had her appendix removed already. No vaginal bleeding or discharge. Nothing makes it better. 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 UP WORKER: section, Other - Present Medications Home Medications: Ambulatory Orders Medication Instructions Recorded Confirmed Albuterol Sulf [Ventolin Hfa 1 - 2 puffs INH Q4HR PRN #1 inhaler 09/08/17 03/09/18 Inhaler] Vitamin [Trinatal Rx 1] 1 each PO DAILY 09/20/17 03/09/18 Albuterol Sulf [Ventolin Hfa 1 - 2 puffs INH Q4HR PRN #1 inhaler 07/08/18 Inhaler] Ondansetron Odt [Zofran] 4 mg TL Q6H PRN #10 tablet 08/25/18 Sertraline HCl [Zoloft] 100 mg PO 08/25/18 Cyclobenzaprine [Flexeril] 10 mg PO TID PRN #20 tablet 10/12/18 Azithromycin 250 mg PO DAILY 5 Days #6 tab 12/16/18 oxyCODONE [Roxicodone] 5 - 10 mg PO Q6H PRN #14 tablet 01/29/19 - Allergies Allergies/Adverse Reactions: Allergies Allergy/AdvReac Type Severity Reaction Status Date / Time acetaminophen Allergy Severe Anaphylaxis Verified 01/29/19 14:29 khan AdvReac Hives Verified 01/29/19 14:29 - Social History Does the pt smoke?: No Smoking Status: Never smoker Does the pt drink ETOH?: No Does the pt have substance abuse?: No - Immunizations Immunizations are current?: Yes - POLST Patient has POLST: No POLST Status: Full Code PD ED PE NORMAL - Vitals Vital signs reviewed: Yes - General General: Alert and oriented X 3, No acute distress, Well developed/nourished - HEENT HEENT: Moist mucous membranes - Neck Neck: Supple, no meningeal sign - Cardiac Cardiac: RRR - Respiratory Respiratory: Clear bilaterally - Abdomen Abdomen: Soft, Non distended, Other (Tender palpation right lower quadrant, more in the pelvis. No peritoneal signs) - Back Back: No CVA TTP, No spinal TTP - Derm Derm: Warm and dry - Extremities Extremities: No edema - Neuro Neuro: Alert and oriented X 3 - Psych Psych: Normal mood, Normal affect Results - Vitals Vitals: Vital Signs - 24 hr 01/29/19 01/29/19 01/29/19 14:27 17:42 19:40 Temperature 36.4 C L Heart Rate 69 64 59 L Respiratory 19 15 15 Rate Blood Pressure 114/70 105/72 110/63 O2 Saturation 99 100 97 Oxygen O2 Source [Without Activity] Room air O2 Source Room air - Labs Labs: Laboratory Tests 01/29/19 01/29/19 01/29/19 14:40 14:40 14:50 WBC 11.1 H RBC 4.89 Hgb 11.4 L Hct 36.5 L MCV 74.6 L MCH 23.3 L MCHC 31.2 L RDW 15.0 Plt Count 268 MPV 9.8 Neut # (Auto) 7.5 H Lymph # (Auto) 2.7 [place] # (Auto) 0.6 Eos # (Auto) 0.1 Baso # (Auto) 0.1 Absolute Nucleated RBC 0.00 Nucleated RBC % 0.0 Sodium 138 Potassium 4.1 Chloride 103 Carbon Dioxide 25 Anion Gap 10.0 BUN 15 Creatinine 0.7 Estimated GFR (MDRD) 128 Glucose 96 Calcium 9.6 Total Bilirubin 0.3 AST 24 ALT 23 Alkaline Phosphatase 47 Total Protein 7.6 Albumin 4.3 Globulin 3.3 Albumin/Globulin Ratio 1.3 Lipase 38 Urine Color YELLOW Urine Clarity CLEAR Urine pH 7.0 Ur Specific [place] 1.020 Urine Protein NEGATIVE Urine Glucose (UA) NEGATIVE Urine Ketones NEGATIVE Urine Occult Blood NEGATIVE Urine Nitrite NEGATIVE Urine Bilirubin NEGATIVE Urine Urobilinogen 2 H Ur Leukocyte Esterase NEGATIVE Ur Microscopic Review NOT INDICATED Urine Culture Comments NOT INDICATED Urine HCG, Qual NEGATIVE - Rads (name of study) Pelvic ultrasound Radiology: Prelim report reviewed, EMP read contemporaneously, See rad report (Small simple right ovarian cyst. No evidence of torsion) PD MEDICAL DECISION MAKING - ED course Complexity details: reviewed results, re-evaluated patient, considered differential, d/w patient ED course: 23-year-old female with an ovarian cyst. Pain well controlled. Will place on pain medication for home and follow-up with her doctor. She is well-appearing, nontoxic. Afebrile. No vaginal discharge. Declines pelvic exam at this time and I think this is reasonable. Patient counseled regarding signs and symptoms for which I believe and urgent re-evaluation would be necessary. Patient with good understanding of and agreement to plan and is comfortable going home at this time This document was made in part using voice recognition software. While efforts are made to proofread this document, sound alike and grammatical errors may occur. Departure - Departure Disposition: 01 Home, Self Care Clinical Impression: Ovarian cyst Qualifiers: Laterality: right Qualified Code(s): N83.201 - Unspecified ovarian cyst, right side Condition: Good Instructions: ED Cyst Ovarian Follow-Up: Anita Reza ARNP [Primary Care Provider] - Within 1 week Prescriptions: oxyCODONE [Roxicodone] 5 - 10 mg PO Q6H PRN #14 tablet PRN Reason: Abdominal Pain Comments: You have a right-sided ovarian cyst. Return if you worsen. This should improve over the next week or so. Follow-up with your doctor within 1 week for repeat evaluation. Do not drink alcohol or drive while on narcotic pain medicine. Note that many narcotic pain relievers also contain tylenol/acetaminophen. Please ensure that your total dose of acetaminophen from all sources does not exceed 3 grams (3000mg) per day. You may constipated on this medication, take a stool softener such as "Colace" twice a day while you are on it. Also recommend a xljn-aau-vthphdh laxative such as senna or MiraLAX any day that you do not have a bowel movement. If you received narcotic pain medication in the emergency department, do not drive or operate machinery for the next 24 hours. Forms: Activity restrictions Discharge Date/Time: 01/29/19 19:43
--- NOTE | 2019-01-29 19:36 | Ultrasound Report ---
Reason: pelvic pain, R Procedure Date: 01/29/2019 Accession Number: [id number] / [id number] Procedure: US - Pelvic w/Transvag+Doppler Comp CPT Code: FULL RESULT: EXAM: PELVIC ULTRASOUND WITH DOPPLERS CLINICAL HISTORY: Pelvic pain, R. COMPARISON: None. TECHNIQUE: Realtime transabdominal imaging performed to identify the uterus and adnexa and as an overview of other pelvic structures, followed by transvaginal imaging for better assessment of the endometrium and adnexa, with static image documentation. Color flow imaging and Doppler spectral analysis was performed to evaluate blood flow to the ovaries given pelvic pain and clinical concern for ovarian torsion. FINDINGS: Uterus: 8.8 x 4.4 x 6.1 cm, volume 122.6 cc. Anteverted position. Mildly heterogeneous. Masses: None. Endometrium: 2.3 mm. Normal. Cervix: Unremarkable. Right Ovary: 3.7 x 3.2 x 3.3 cm, volume 21.6 cc. Normal echotexture. Simple cyst measuring 2.6 x 3.2 x 2.6 cm. Arterial and venous blood flow are present. PSV 6.8 cm/sec. RI 0.68. Adnexa unremarkable. Left Ovary: Not clearly visualized. Adnexa unremarkable. Free Fluid: None. Other: None. IMPRESSION: 1. Small simple right ovarian cyst. 2. Arterial and venous blood flow are present to the ovaries bilaterally. RADIA
[2019-01-29 19:43] VITALS: BP 110/63
== END 2019-01-29 19:43 | disposition home or self-care (01) ==
LOC: ED 14:15
DX: N83.201 Unspecified ovarian cyst, right side (principal)
CPT/HCPCS: 36415; 76830; 76856; 80053; 81003; 81025; 83690; 85025; 93975; 99283; 99284; A9270; 81001; 87086

== ENCOUNTER 2019-03-25 13:19 | Emergency (ER) | payer OTHER ==
[2019-03-25 13:44] LABS: BASOPHILS # (AUTO) 0.1 10^3/uL (0.0-0.1); BASOPHILS % (AUTO) 0.5 %; EOSINOPHILS # (AUTO) 0.1 10^3/uL (0.0-0.7); HGB - HEMOGLOBIN 11.4 g/dL (12.0-16.0); LYMPHOCYTES # (AUTO) 2.7 10^3/uL (1.5-3.5); LYMPHOCYTES % (AUTO) 25.5 %; MEAN CORPUSCULAR HEMOGLOBIN 23.6 pg (27.0-31.0); MEAN CORPUSCULAR HGB CONC 31.6 g/dL (32.0-36.0); MEAN CORPUSCULAR VOLUME 74.7 fL (81.0-99.0); MEAN PLATELET VOLUME 9.8 fL (7.9-10.8); MONOCYTES # (AUTO) 0.6 10^3/uL (0.0-1.0); MONOCYTES % (AUTO) 5.4 %; NEUTROPHILS % (AUTO) 67.2 %; PLT - PLATELET COUNT 272 10^3/uL (130-450); RED BLOOD COUNT 4.83 10^6/uL (4.20-5.40); RED CELL DISTRIBUTION WIDTH 14.7 % (12.0-15.0); WHITE BLOOD COUNT 10.4 x10^3/uL (4.8-10.8)
[2019-03-25 13:50] LABS: BILIRUBIN,URINE NEGATIVE (NEGATIVE); GLUCOSE, URINE (UA) NEGATIVE (NEGATIVE); KETONES,URINE (UA) NEGATIVE (NEGATIVE); LEUKOCYTE ESTERASE, URINE NEGATIVE (NEGATIVE); NITRITE,URINE NEGATIVE (NEGATIVE); OCCULT BLOOD,URINE LARGE (NEGATIVE); PH,URINE 6.5 PH (5.0-7.5); PROTEIN,URINE NEGATIVE (NEGATIVE); UROBILINOGEN,URINE 1 (NORMAL) E.U./dL (NORMAL)
[2019-03-25 13:53] LABS: CLARITY,URINE CLEAR (CLEAR); HCG UR QUAL NEGATIVE
[2019-03-25 14:04] LABS: ALBUMIN 4.2 g/dL (3.2-5.5); ALBUMIN/GLOBULIN RATIO 1.2 (1.0-2.2); BILIRUBIN,TOTAL 0.5 mg/dL (0.2-1.0); CREATININE 0.7 mg/dL (0.4-1.0); TOTAL PROTEIN 7.7 g/dL (6.7-8.2)
[2019-03-25 14:25] LABS: BACTERIA,URINE Few /HPF (None Seen); MUCUS,URINE Few Strands; SQUAMOUS EPITHELIAL CELL,UR FEW Squamous (<= Few)
--- NOTE | 2019-03-25 17:01 | ED Physician Documentation ---
PD HPI FEMALE - Stated complaint Stated Complaint: FEM /CRAMPING - Chief complaint Chief Complaint: Abd Pain - History obtained from History obtained from: Patient - History of Present Illness Timing - onset: How many days ago (4) Timing - duration: Days (4) Timing - details: Gradual onset, Still present (she had had normal period at expected time about 10 days ago, lasted 4-5 days and was seeming done, then started with cramping and bleeding again, like another period. This has continued the past 4 days. More cramping than typical. SImilar degree of bleeding to periods.) Associated symptoms: Pelvic pain, Vaginal bleeding. No: Fever, Vaginal discharge, Genital sore/lesion, Dysuria, Urinary frequency Contributing factors: Sexually active. No: , Exposed to STD Similar symptoms before: Has not had sx before Recently seen: Not recently seen Review of Systems Constitutional: denies: Fever, Chills Nose: denies: Rhinorrhea / runny nose, Congestion Throat: denies: Sore throat Respiratory: denies: Cough GI: reports: Abdominal Pain. denies: Nausea, Vomiting, Diarrhea : reports: Vaginal bleeding, Control (Nexplanon and has regular periods with this). 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: Other : None HEENT: None Psych: None Musculoskeletal: Other Derm: None - Past Surgical History Past Surgical History: Yes General: Appendectomy /MANAGER MARKETING SALES: section, Other - Present Medications Home Medications: Ambulatory Orders Medication Instructions Recorded Confirmed Albuterol Sulf [Ventolin Hfa 1 - 2 puffs INH Q4HR PRN #1 inhaler 09/08/17 03/09/18 Inhaler] Vitamin [Trinatal Rx 1] 1 each PO DAILY 09/20/17 03/09/18 Albuterol Sulf [Ventolin Hfa 1 - 2 puffs INH Q4HR PRN #1 inhaler 07/08/18 Inhaler] Ondansetron Odt [Zofran] 4 mg TL Q6H PRN #10 tablet 08/25/18 Sertraline HCl [Zoloft] 100 mg PO 08/25/18 Cyclobenzaprine [Flexeril] 10 mg PO TID PRN #20 tablet 10/12/18 Azithromycin 250 mg PO DAILY 5 Days #6 tab 12/16/18 oxyCODONE [Roxicodone] 5 - 10 mg PO Q6H PRN #14 tablet 01/29/19 Naproxen 500 mg PO BID #20 tablet 03/25/19 Norgestimate-Ethinyl Estradiol 1 each PO DAILY #1 packet 03/25/19 [Ortho Tri-Cyclen 28 Tablet] Oxycodone HCl 5 mg PO Q6H PRN #12 tablet 03/25/19 - Allergies Allergies/Adverse Reactions: Allergies Allergy/AdvReac Type Severity Reaction Status Date / Time acetaminophen Allergy Severe Anaphylaxis Verified 03/25/19 13:27 khan AdvReac Hives Verified 03/25/19 13:27 - Social History Does the pt smoke?: No Smoking Status: Never smoker Does the pt drink ETOH?: No Does the pt have substance abuse?: No - Immunizations Immunizations are current?: Yes - POLST Patient has POLST: No POLST Status: Full Code PD ED PE NORMAL - Vitals Vital signs reviewed: Yes - General General: Alert and oriented X 3, No acute distress, Well developed/nourished - Neck Neck: Supple, no meningeal sign, No adenopathy - Cardiac Cardiac: RRR, No murmur - Respiratory Respiratory: Clear bilaterally - Abdomen Abdomen: Soft, Non tender - Female Female : Laser Cutter present, Other (normal external. Vault with some menstrual type bleeding. No discharge nor odor. Swabs obtained. ) - Rectal Rectal: Deferred - Back Back: No CVA TTP - Derm Derm: Normal color, Warm and dry Results - Vitals Vitals: Vital Signs - 24 hr 03/25/19 03/25/19 03/25/19 13:24 16:35 18:09 Temperature 36.2 C L Heart Rate 75 62 71 Respiratory 16 18 16 Rate Blood Pressure 123/66 118/72 121/63 O2 Saturation 100 100 100 03/25/19 20:26 Temperature Heart Rate 68 Respiratory 14 Rate Blood Pressure 124/68 O2 Saturation 100 Oxygen O2 Source [Without Activity] Room air O2 Source Room air - Labs Labs: Laboratory Tests 03/25/19 03/25/19 03/25/19 13:30 13:30 13:30 WBC 10.4 RBC 4.83 Hgb 11.4 L Hct 36.1 L MCV 74.7 L MCH 23.6 L MCHC 31.6 L RDW 14.7 Plt Count 272 MPV 9.8 Neut # (Auto) 7.0 H Lymph # (Auto) 2.7 [place] # (Auto) 0.6 Eos # (Auto) 0.1 Baso # (Auto) 0.1 Absolute Nucleated RBC 0.00 Nucleated RBC % 0.0 Sodium 139 Potassium 3.5 Chloride 106 Carbon Dioxide 27 Anion Gap 6.0 BUN 17 Creatinine 0.7 Estimated GFR (MDRD) 128 Glucose 90 Calcium 9.0 Total Bilirubin 0.5 AST 25 ALT 17 Alkaline Phosphatase 50 Total Protein 7.7 Albumin 4.2 Globulin 3.5 Albumin/Globulin Ratio 1.2 Lipase 26 Urine Color DARK YELLOW Urine Clarity CLEAR Urine pH 6.5 Ur Specific [place] 1.020 Urine Protein NEGATIVE Urine Glucose (UA) NEGATIVE Urine Ketones NEGATIVE Urine Occult Blood LARGE H Urine Nitrite NEGATIVE Urine Bilirubin NEGATIVE Urine Urobilinogen 1 (NORMAL) Ur Leukocyte Esterase NEGATIVE Urine RBC 6-10 H Urine WBC 0-3 Ur Squamous Epith Cells FEW Squamous Urine Bacteria Few Urine Mucus Few Strands Ur Microscopic Review INDICATED Urine Culture Comments NOT INDICATED Urine HCG, Qual NEGATIVE C. glabrata (PCR) C. krusei (PCR) Jennifer species DNA Chlam trachomat DNA PCR N.gonorrhoeae DNA (PCR) T. vaginalis (PCR) Bact Vaginosis (PCR) 03/25/19 03/25/19 17:53 17:53 WBC RBC Hgb Hct MCV MCH MCHC RDW Plt Count MPV Neut # (Auto) Lymph # (Auto) [place] # (Auto) Eos # (Auto) Baso # (Auto) Absolute Nucleated RBC Nucleated RBC % Sodium Potassium Chloride Carbon Dioxide Anion Gap BUN Creatinine Estimated GFR (MDRD) Glucose Calcium Total Bilirubin AST ALT Alkaline Phosphatase Total Protein Albumin Globulin Albumin/Globulin Ratio Lipase Urine Color Urine Clarity Urine pH Ur Specific [place] Urine Protein Urine Glucose (UA) Urine Ketones Urine Occult Blood Urine Nitrite Urine Bilirubin Urine Urobilinogen Ur Leukocyte Esterase Urine RBC Urine WBC Ur Squamous Epith Cells Urine Bacteria Urine Mucus Ur Microscopic Review Urine Culture Comments Urine HCG, Qual C. glabrata (PCR) NEGATIVE C. krusei (PCR) NEGATIVE Jennifer species DNA NEGATIVE Chlam trachomat DNA PCR NEGATIVE N.gonorrhoeae DNA (PCR) NEGATIVE T. vaginalis (PCR) NEGATIVE NEGATIVE Bact Vaginosis (PCR) POSITIVE A PD MEDICAL DECISION MAKING - ED course Complexity details: reviewed results (pelvic U/S showed 3 cm ovarian cyst. No free fluid. No other acute findings. pelvic exam was clinically low suspicion for BV/infection. ), considered differential, d/w patient ED course: after discharge, got PCR back showing BV. Will have culture nurse call in Rx for patient. Departure - Departure Disposition: 01 Home, Self Care Clinical Impression: Dysfunctional uterine bleeding Ovarian cyst Qualifiers: Laterality: right Qualified Code(s): N83.201 - Unspecified ovarian cyst, right side Condition: Stable Record reviewed to determine appropriate education?: Yes Instructions: ED Bleed Irregular Vaginal Follow-Up: Anita Reza ARNP [Primary Care Provider] - Prescriptions: Naproxen 500 mg PO BID #20 tablet Norgestimate-Ethinyl Estradiol [Ortho Tri-Cyclen 28 Tablet] 1 each PO DAILY #1 packet Oxycodone HCl 5 mg PO Q6H PRN #12 tablet PRN Reason: Pain Comments: You do have a small 3 cm ovarian cyst on the right. There is no signs of bleeding. There is good blood flow to both ovaries. The irregular menstrual bleeding and cramping may have an hormonal influence from the ovarian cyst or may be just a common irregularity of the periods. Stay well-hydrated. Use anti-inflammatories such as naproxen 2-3 times daily for the next week. Add oxycodone as needed for pain. If your bleeding decreases in the next day or 2 then no further treatment and to see it when you next. Results. If you continue with cramping and bleeding over the next day or 2, you could add an estrogen hormone to see if that truncates it. If you do start that, take the 3 tablets of the beginning of the control packet all at once on the first day and then 2 tablets a day for 2 more days. You could then stop or go with just 1 a day for a few more days. That will typically decrease in stop the bleeding quicker. Follow-up with your primary care if not improved over the next several days to week with these above measures. The ovarian cyst likely will improve on its own. Follow-up with your primary care in a few weeks or so and they could potentially redo the ultrasound to see if it has improved. Discharge Date/Time: 03/25/19 20:27
[2019-03-25] MEDS ORDERED: IBUPROFEN 800 MG TABLET PO STA (17:12)
--- NOTE | 2019-03-25 20:13 | Ultrasound Report ---
Reason: pelvic pain Procedure Date: 03/25/2019 Accession Number: [id number] / [id number] Procedure: US - Pelvic w/Transvag+Doppler Ltd CPT Code: FULL RESULT: EXAM: PELVIC ULTRASOUND WITH DOPPLERS CLINICAL HISTORY: Pelvic pain. COMPARISON: PEL NON OB W/TV DOP 01/29/2019 6:10 PM TECHNIQUE: Realtime transabdominal imaging performed to identify the uterus and adnexa and as an overview of other pelvic structures, followed by transvaginal imaging for better assessment of the endometrium and adnexa, with static image documentation. Color flow imaging and Doppler spectral analysis was performed to evaluate blood flow to the ovaries given pelvic pain and clinical concern for ovarian torsion. FINDINGS: Uterus: 9.2 x 4.3 x 5.1 cm, volume 105.6 cc. Anteverted position. Normal overall size and echotexture. Masses: None. Endometrium: 4 mm. Normal. Cervix: Unremarkable. Right Ovary: 3.9 x 3.8 x 3.2 cm, volume 25 cc. A simple cyst measures 3.3 x 2.0 x 2.8 cm, previously measured 2.6 x 3.2 x 2.6 cm Arterial and venous blood flow are present. PSV 8 cm/sec. RI 0.4. Adnexa are unremarkable. Left Ovary: 2.7 x 2.0 x 2.3 cm, volume 6.4 cc. Normal echotexture. Arterial and venous blood flow are present. PSV 7.7 cm/sec. RI 0.7. Adnexa are unremarkable. Free Fluid: None. Other: None. IMPRESSION: Simple right ovarian cyst, similar to prior. No evidence of torsion. RADIA
[2019-03-25 20:27] VITALS: BP 124/68
[2019-03-25 20:53] LABS: CANDIDA GROUP DNA NEGATIVE (NEGATIVE); CANDIDA KRUSEI DNA NEGATIVE (NEGATIVE); TRICHOMONAS VAGINALIS DNA NEGATIVE (NEGATIVE)
[2019-03-25 21:49] LABS: TRICHOMONAS VAGINALIS DNA NEGATIVE (NEGATIVE)
== END 2019-03-25 20:27 | disposition home or self-care (01) ==
LOC: ED 13:19
DX: N93.8 Other specified abnormal uterine and vaginal bleeding (principal); N83.291 Other ovarian cyst, right side; N76.0 Acute vaginitis; B96.89 Other specified bacterial agents as the cause of diseases classified elsewhere
CPT/HCPCS: 36415; 76830; 76856; 80053; 81001; 81025; 83690; 85025; 87481; 87491; 87591; 87661; 87801; 93976; 99284; A9270; 81003; 87086

== ENCOUNTER 2019-05-13 10:26 | Emergency (ER) | payer OTHER ==
--- NOTE | 2019-05-13 10:48 | ED Physician Documentation ---
History of Present Illness - Stated complaint Stated Complaint: ABD PX - Chief complaint Chief Complaint: Abd Pain - History obtained from History obtained from: Patient - History of Present Illness Timing: How many days ago (Several days ago) Pain level max: 3 Pain level now: 1 - Additonal information Additional information: 23-year-old female states that she recently ended her period on Saturday but is continuing to have vaginal bleeding. States she is using a pad an hour. Was seen here approximately 6 weeks ago for same. Started on hormonal control. She states that this helped but she stopped taking it. She states she also is having dysuria. She has Nexplanon in her left arm. Has not followed up with her doctor or her county home demonstrator since her last visit. States has dysuria as well. No back pain. No fevers. No vomiting. Nothing makes it better or worse. 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 : None HEENT: None Psych: None Musculoskeletal: Other Derm: None - Past Surgical History Past Surgical History: Yes General: Appendectomy /HURRICANE TRACKER: section, Other - Present Medications Home Medications: Ambulatory Orders Medication Instructions Recorded Confirmed Albuterol Sulf [Ventolin Hfa 1 - 2 puffs INH Q4HR PRN #1 inhaler 09/08/17 03/09/18 Inhaler] Vitamin [Trinatal Rx 1] 1 each PO DAILY 09/20/17 03/09/18 Albuterol Sulf [Ventolin Hfa 1 - 2 puffs INH Q4HR PRN #1 inhaler 07/08/18 Inhaler] Ondansetron Odt [Zofran] 4 mg TL Q6H PRN #10 tablet 08/25/18 Sertraline HCl [Zoloft] 100 mg PO 08/25/18 Cyclobenzaprine [Flexeril] 10 mg PO TID PRN #20 tablet 10/12/18 Azithromycin 250 mg PO DAILY 5 Days #6 tab 12/16/18 oxyCODONE [Roxicodone] 5 - 10 mg PO Q6H PRN #14 tablet 01/29/19 Naproxen 500 mg PO BID #20 tablet 03/25/19 Norgestimate-Ethinyl Estradiol 1 each PO DAILY #1 packet 03/25/19 [Ortho Tri-Cyclen 28 Tablet] Oxycodone HCl 5 mg PO Q6H PRN #12 tablet 03/25/19 - Allergies Allergies/Adverse Reactions: Allergies Allergy/AdvReac Type Severity Reaction Status Date / Time acetaminophen Allergy Severe Anaphylaxis Verified 05/13/19 10:31 khan AdvReac Hives Verified 05/13/19 10:31 - Social History Does the pt smoke?: No Smoking Status: Never smoker Does the pt drink ETOH?: No Does the pt have substance abuse?: No - Immunizations Immunizations are current?: Yes - POLST Patient has POLST: No POLST Status: Full Code PD ED PE NORMAL - Vitals Vital signs reviewed: Yes - General General: Alert and oriented X 3, No acute distress, Well developed/nourished - HEENT HEENT: PERRL, Moist mucous membranes - Neck Neck: Supple, no meningeal sign - Cardiac Cardiac: RRR, Strong equal pulses - Respiratory Respiratory: No respiratory distress, Clear bilaterally - Abdomen Abdomen: Soft, Non tender, Non distended - Female Female : Consumer Relations Complaint Clerk present (Lakisha RN), Other (Scant vaginal bleeding from the cervical os.) - Back Back: No CVA TTP, No spinal TTP - Derm Derm: Warm and dry, No rash - Extremities Extremities: No edema - Neuro Neuro: Alert and oriented X 3 - Psych Psych: Normal mood, Normal affect Results - Vitals Vitals: Vital Signs - 24 hr 05/13/19 05/13/19 10:31 12:32 Temperature 36.9 C 37.4 C Heart Rate 71 72 Respiratory 15 16 Rate Blood Pressure 113/48 L 125/88 H O2 Saturation 100 99 Oxygen O2 Source [Without Activity] Room air O2 Source Room air - Labs Labs: Laboratory Tests 05/13/19 05/13/19 10:38 11:19 WBC 8.2 RBC 4.78 Hgb 11.2 L Hct 36.5 L MCV 76.4 L MCH 23.4 L MCHC 30.7 L RDW 14.5 Plt Count 267 MPV 10.1 Neut # (Auto) 5.3 Lymph # (Auto) 2.3 [place] # (Auto) 0.5 Eos # (Auto) 0.1 Baso # (Auto) 0.1 Absolute Nucleated RBC 0.00 Nucleated RBC % 0.0 Urine Color YELLOW Urine Clarity CLOUDY Urine pH 6.0 Ur Specific [place] 1.025 Urine Protein NEGATIVE Urine Glucose (UA) NEGATIVE Urine Ketones NEGATIVE Urine Occult Blood LARGE H Urine Nitrite NEGATIVE Urine Bilirubin NEGATIVE Urine Urobilinogen 0.2 (NORMAL) Ur Leukocyte Esterase NEGATIVE Urine RBC TNTC H Urine WBC 4-5 Ur Squamous Epith Cells MANY Squamous H Urine Bacteria Many H Urine Mucus Marked Strands Ur Microscopic Review INDICATED Urine Culture Comments NOT INDICATED Urine HCG, Qual NEGATIVE PD MEDICAL DECISION MAKING - ED course Complexity details: reviewed results, re-evaluated patient, considered differential, d/w patient ED course: Patient with dysfunctional uterine bleeding. Hemoglobin is stable. Mild bleeding here. We did discuss hormonal control of this, she declines this at this time. She will follow-up with her county home demonstrator for further care. We also discussed TXA, she declines this as well. Patient counseled regarding signs and symptoms for which I believe and urgent re-evaluation would be necessary. Patient with good understanding of and agreement to plan and is comfortable going home at this time This document was made in part using voice recognition software. While efforts are made to proofread this document, sound alike and grammatical errors may occur. Departure - Departure Disposition: 01 Home, Self Care Clinical Impression: Dysfunctional uterine bleeding Condition: Good Instructions: ED Bleed Irregular Vaginal Follow-Up: Anita Reza, FEDERAL MEDIATOR [Primary Care Provider] - Within 1 week Comments: Your blood counts are stable today. Return if you worsen. Follow-up with your doctor for further care. Discharge Date/Time: 05/13/19 12:33
[2019-05-13 11:25] LABS: BASOPHILS # (AUTO) 0.1 10^3/uL (0.0-0.1); BASOPHILS % (AUTO) 0.6 %; EOSINOPHILS # (AUTO) 0.1 10^3/uL (0.0-0.7); EOSINOPHILS % (AUTO) 0.6 %; HGB - HEMOGLOBIN 11.2 g/dL (12.0-16.0); LYMPHOCYTES # (AUTO) 2.3 10^3/uL (1.5-3.5); LYMPHOCYTES % (AUTO) 27.5 %; MEAN CORPUSCULAR HEMOGLOBIN 23.4 pg (27.0-31.0); MEAN CORPUSCULAR HGB CONC 30.7 g/dL (32.0-36.0); MEAN CORPUSCULAR VOLUME 76.4 fL (81.0-99.0); MEAN PLATELET VOLUME 10.1 fL (7.9-10.8); MONOCYTES # (AUTO) 0.5 10^3/uL (0.0-1.0); MONOCYTES % (AUTO) 6.2 %; NEUTROPHILS # (AUTO) 5.3 10^3/uL (1.5-6.6); NEUTROPHILS % (AUTO) 64.9 %; PLT - PLATELET COUNT 267 10^3/uL (130-450); RED BLOOD COUNT 4.78 10^6/uL (4.20-5.40); RED CELL DISTRIBUTION WIDTH 14.5 % (12.0-15.0); WHITE BLOOD COUNT 8.2 x10^3/uL (4.8-10.8)
[2019-05-13 11:25] LABS: BILIRUBIN,URINE NEGATIVE (NEGATIVE); GLUCOSE, URINE (UA) NEGATIVE (NEGATIVE); KETONES,URINE (UA) NEGATIVE (NEGATIVE); LEUKOCYTE ESTERASE, URINE NEGATIVE (NEGATIVE); NITRITE,URINE NEGATIVE (NEGATIVE); OCCULT BLOOD,URINE LARGE (NEGATIVE); PROTEIN,URINE NEGATIVE (NEGATIVE); UROBILINOGEN,URINE 0.2 (NORMAL) E.U./dL (NORMAL)
[2019-05-13 11:29] LABS: CLARITY,URINE CLOUDY (CLEAR); HCG UR QUAL NEGATIVE
[2019-05-13 11:34] LABS: BACTERIA,URINE Many /HPF (None Seen); MUCUS,URINE Marked Strands; RBC,URINE TNTC /HPF (0-5); SQUAMOUS EPITHELIAL CELL,UR MANY Squamous (<= Few)
[2019-05-13 12:33] VITALS: BP 125/88
== END 2019-05-13 12:33 | disposition home or self-care (01) ==
LOC: ED 10:26
DX: N93.8 Other specified abnormal uterine and vaginal bleeding (principal)
CPT/HCPCS: 36415; 81001; 81003; 81025; 85025; 87086; 99282; 99283

== ENCOUNTER 2019-09-29 09:58 | Emergency (ER) | payer OTHER ==
--- NOTE | 2019-09-29 11:20 | ED Physician Documentation ---
PD HPI ABD PAIN - Stated complaint Stated Complaint: N/V - Chief complaint Chief Complaint: Abd Pain - History obtained from History obtained from: Patient - History of Present Illness Timing - onset: How many days ago (2) Timing - duration: Days (2) Timing - details: Abrupt onset, Still present (onset of nausea and vomiting, then to lower abd pain/cramps. Has had persistent nausea and pains. No vomiting the past 1/2 day.) Quality: Cramping, Pain Location: Suprapubic, LLQ Radiation: No: Left flank, Right flank Improved by: No: Eating, Vomiting Worsened by: Moving, Palpation. No: Eating, Breathing Associated symptoms: Nausea, Vomiting. No: Fever, Diarrhea (had formed stool the past couple days), Constipation, Melena Recently seen: Not recently seen Review of Systems Constitutional: reports: Myalgias. denies: Fever, Chills Nose: denies: Rhinorrhea / runny nose, Congestion Throat: denies: Sore throat Respiratory: denies: Cough GI: reports: Abdominal Pain, Nausea, Vomiting. 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 : None HEENT: None Psych: None Musculoskeletal: Other Derm: None - Past Surgical History Past Surgical History: Yes General: Appendectomy /PEST CONTROL OPERATOR: section, Other - Present Medications Home Medications: Ambulatory Orders Medication Instructions Recorded Confirmed Albuterol Sulf [Ventolin Hfa 1 - 2 puffs INH Q4HR PRN #1 inhaler 09/08/17 03/09/18 Inhaler] Vitamin [Trinatal Rx 1] 1 each PO DAILY 09/20/17 03/09/18 Albuterol Sulf [Ventolin Hfa 1 - 2 puffs INH Q4HR PRN #1 inhaler 07/08/18 Inhaler] Ondansetron Odt [Zofran] 4 mg TL Q6H PRN #10 tablet 08/25/18 Sertraline HCl [Zoloft] 100 mg PO 08/25/18 Cyclobenzaprine [Flexeril] 10 mg PO TID PRN #20 tablet 10/12/18 Azithromycin 250 mg PO DAILY 5 Days #6 tab 12/16/18 oxyCODONE [Roxicodone] 5 - 10 mg PO Q6H PRN #14 tablet 01/29/19 Naproxen 500 mg PO BID #20 tablet 03/25/19 Norgestimate-Ethinyl Estradiol 1 each PO DAILY #1 packet 03/25/19 [Ortho Tri-Cyclen 28 Tablet] Oxycodone HCl 5 mg PO Q6H PRN #12 tablet 03/25/19 Naproxen 375 mg PO BID #20 tablet 09/29/19 Ondansetron Odt [Zofran] 4 mg TL Q6H PRN #10 tablet 09/29/19 Oxycodone HCl 5 mg PO Q6H PRN #12 tablet 09/29/19 - Allergies Allergies/Adverse Reactions: Allergies Allergy/AdvReac Type Severity Reaction Status Date / Time acetaminophen Allergy Severe Anaphylaxis Verified 09/29/19 10:26 khan AdvReac Hives Verified 09/29/19 10:26 - Social History Does the pt smoke?: No Smoking Status: Never smoker Does the pt drink ETOH?: No Does the pt have substance abuse?: No - Immunizations Immunizations are current?: Yes - POLST Patient has POLST: No POLST Status: Full Code PD ED PE NORMAL - Vitals Vital signs reviewed: Yes - General General: Alert and oriented X 3, No acute distress, Well developed/nourished - HEENT HEENT: Pharynx benign - Neck Neck: Supple, no meningeal sign, No adenopathy - Cardiac Cardiac: RRR, No murmur - Respiratory Respiratory: Clear bilaterally - Abdomen Abdomen: Normal bowel sounds, Soft, Non distended, No organomegaly, Other (tender suprapubic and llq area without guarding nor percussion tenderness. ) - Female Female : Deferred - Rectal Rectal: Deferred - Back Back: No CVA TTP - Derm Derm: Normal color, Warm and dry Results - Vitals Vitals: Vital Signs - 24 hr 09/29/19 09/29/19 10:26 12:49 Temperature 36.8 C 37.2 C Heart Rate 90 67 Respiratory 18 16 Rate Blood Pressure 127/75 124/75 O2 Saturation 100 100 Oxygen O2 Source [Without Activity] Room air O2 Source Room air - Labs Labs: Laboratory Tests 09/29/19 09/29/19 09/29/19 11:20 11:20 11:37 WBC 8.6 RBC 4.75 Hgb 11.3 L Hct 36.2 L MCV 76.2 L MCH 23.8 L MCHC 31.2 L RDW 13.7 Plt Count 267 MPV 9.8 Neut # (Auto) 6.2 Lymph # (Auto) 1.9 [place] # (Auto) 0.4 Eos # (Auto) 0.1 Baso # (Auto) 0.0 Absolute Nucleated RBC 0.00 Nucleated RBC % 0.0 Sodium Potassium Chloride Carbon Dioxide Anion Gap BUN Creatinine Estimated GFR (MDRD) Glucose Calcium Total Bilirubin AST ALT Alkaline Phosphatase Total Protein Albumin Globulin Albumin/Globulin Ratio Lipase Urine Color YELLOW Urine Clarity CLEAR Urine pH 7.5 Ur Specific [place] 1.020 1.020 Urine Protein NEGATIVE Urine Glucose (UA) NEGATIVE Urine Ketones NEGATIVE Urine Occult Blood NEGATIVE Urine Nitrite NEGATIVE Urine Bilirubin NEGATIVE Urine Urobilinogen 0.2 (NORMAL) Ur Leukocyte Esterase NEGATIVE Ur Microscopic Review NOT INDICATED Urine Culture Comments NOT INDICATED Urine HCG, Qual NEGATIVE 09/29/19 11:37 WBC RBC Hgb Hct MCV MCH MCHC RDW Plt Count MPV Neut # (Auto) Lymph # (Auto) [place] # (Auto) Eos # (Auto) Baso # (Auto) Absolute Nucleated RBC Nucleated RBC % Sodium 135 Potassium 4.1 Chloride 104 Carbon Dioxide 25 Anion Gap 6.0 BUN 19 Creatinine 0.7 Estimated GFR (MDRD) 127 Glucose 97 Calcium 9.0 Total Bilirubin 0.4 AST 21 ALT 19 Alkaline Phosphatase 41 L Total Protein 7.3 Albumin 4.2 Globulin 3.1 Albumin/Globulin Ratio 1.4 Lipase 25 Urine Color Urine Clarity Urine pH Ur Specific [place] Urine Protein Urine Glucose (UA) Urine Ketones Urine Occult Blood Urine Nitrite Urine Bilirubin Urine Urobilinogen Ur Leukocyte Esterase Ur Microscopic Review Urine Culture Comments Urine HCG, Qual - Rads (name of study) pelvic U/S Radiology: Prelim report reviewed (normal flow to ovaries. No structural abnormality. anteroverted uterus. ), See rad report PD MEDICAL DECISION MAKING - ED course Complexity details: reviewed results, re-evaluated patient (improved with meds. Still some cramping. No apparent pelvic cause, and UA is good. Presume intestinal cramping. Not focally tender on right, mostly left and she is s/p appy. I do not feel I am missing surgical process at this point. ), considered differential (she had lower abd pain and N/V. Her son has vomiting and diarrhea without abd pain. They may have both viral GE but hers seems more pelvic/lower abd. Will get UA, labs, U/S. ), d/w patient Departure - Departure Disposition: 01 Home, Self Care Clinical Impression: Lower abdominal pain Nausea & vomiting Qualifiers: Vomiting type: unspecified Vomiting Intractability: non-intractable Qualified Code(s): R11.2 - Nausea with vomiting, unspecified Condition: Stable Record reviewed to determine appropriate education?: Yes Instructions: ED Abdominal Pain Unkn Cause, ED Nausea Vomiting Follow-Up: Anita Reza ARNP [Primary Care Provider] - Prescriptions: Naproxen 375 mg PO BID #20 tablet Ondansetron Odt [Zofran] 4 mg TL Q6H PRN #10 tablet PRN Reason: Nausea / Vomiting Oxycodone HCl 5 mg PO Q6H PRN #12 tablet PRN Reason: Pain Comments: Stay well-hydrated. Use ondansetron if needed for nausea and vomiting. There is no abnormality on your ultrasound to account for pelvic pain. At this point resume it may be some intestinal pains or cramps related to the nausea and vomiting. Try some naproxen anti-inflammatory twice daily for the next couple days and add pain medicine if needed. Recheck if not improving well over the next several days and return sooner if worsening. Discharge Date/Time: 09/29/19 13:52
[2019-09-29 11:29] LABS: BILIRUBIN,URINE NEGATIVE (NEGATIVE); GLUCOSE, URINE (UA) NEGATIVE (NEGATIVE); KETONES,URINE (UA) NEGATIVE (NEGATIVE); LEUKOCYTE ESTERASE, URINE NEGATIVE (NEGATIVE); NITRITE,URINE NEGATIVE (NEGATIVE); OCCULT BLOOD,URINE NEGATIVE (NEGATIVE); PH,URINE 7.5 PH (5.0-7.5); PROTEIN,URINE NEGATIVE (NEGATIVE); UROBILINOGEN,URINE 0.2 (NORMAL) E.U./dL (NORMAL)
[2019-09-29 11:33] LABS: CLARITY,URINE CLEAR (CLEAR)
[2019-09-29 11:45] LABS: BASOPHILS % (AUTO) 0.5 %; EOSINOPHILS # (AUTO) 0.1 10^3/uL (0.0-0.7); EOSINOPHILS % (AUTO) 0.9 %; HGB - HEMOGLOBIN 11.3 g/dL (12.0-16.0); LYMPHOCYTES # (AUTO) 1.9 10^3/uL (1.5-3.5); LYMPHOCYTES % (AUTO) 22.1 %; MEAN CORPUSCULAR HEMOGLOBIN 23.8 pg (27.0-31.0); MEAN CORPUSCULAR HGB CONC 31.2 g/dL (32.0-36.0); MEAN CORPUSCULAR VOLUME 76.2 fL (81.0-99.0); MEAN PLATELET VOLUME 9.8 fL (7.9-10.8); MONOCYTES # (AUTO) 0.4 10^3/uL (0.0-1.0); MONOCYTES % (AUTO) 4.3 %; NEUTROPHILS # (AUTO) 6.2 10^3/uL (1.5-6.6); PLT - PLATELET COUNT 267 10^3/uL (130-450); RED BLOOD COUNT 4.75 10^6/uL (4.20-5.40); RED CELL DISTRIBUTION WIDTH 13.7 % (12.0-15.0); WHITE BLOOD COUNT 8.6 x10^3/uL (4.8-10.8)
[2019-09-29] MEDS ORDERED: ONDANSETRON ODT 4 MG TABLET TL STA (11:52)
[2019-09-29] MEDS ORDERED: IBUPROFEN 600 MG TABLET PO STA (11:53)
[2019-09-29 11:57] LABS: ALBUMIN 4.2 g/dL (3.2-5.5); ALBUMIN/GLOBULIN RATIO 1.4 (1.0-2.2); BILIRUBIN,TOTAL 0.4 mg/dL (0.2-1.0); CREATININE 0.7 mg/dL (0.4-1.0); TOTAL PROTEIN 7.3 g/dL (6.7-8.2)
[2019-09-29 12:07] LABS: HCG UR QUAL NEGATIVE
[2019-09-29 12:50] VITALS: BP 124/75
--- NOTE | 2019-09-29 12:59 | Ultrasound Report ---
Reason: pelvic pain Procedure Date: 09/29/2019 Accession Number: [id number] / [id number] Procedure: US - Pelvic w/Transvag+Doppler Ltd CPT Code: Final Report FULL RESULT: EXAM: PELVIC ULTRASOUND WITH DOPPLERS CLINICAL HISTORY: Pelvic pain. COMPARISON: None. TECHNIQUE: Realtime transabdominal imaging performed to identify the uterus and adnexa and as an overview of other pelvic structures, followed by transvaginal imaging for better assessment of the endometrium and adnexa, with static image documentation. Color flow imaging and Doppler spectral analysis was performed to evaluate blood flow to the ovaries given pelvic pain and clinical concern for ovarian torsion. FINDINGS: Uterus: 9.8 x 3.2 x 4.6 cm, volume 75 cc. Anteverted and retroflexed position. Distorted-appearing positioning with overall normal size and echotexture. Masses: None. Endometrium: 5 mm. Normal. Cervix: Unremarkable. Right Ovary: 2.5 x 2.0 x 2.3 cm, volume 6 cc. Normal echotexture. Arterial and venous blood flow are present. PSV 11.1 cm/sec. RI 0.6. Adnexa are unremarkable. Left Ovary: 2.6 x 2.1 x 2.1 cm, volume 6.0 cc. Normal echotexture. Arterial and venous blood flow are present. PSV 9.2 cm/sec. RI 0.6. Adnexa are unremarkable. Free Fluid: None. Other: None. IMPRESSION: 1. Anteverted retroflexed uterus. 2. Arterial and venous blood flow are present to the ovaries bilaterally. RADIA
== END 2019-09-29 13:52 | disposition home or self-care (01) ==
LOC: ED 09:58
DX: R10.32 Left lower quadrant pain (principal); R11.2 Nausea with vomiting, unspecified; N85.4 Malposition of uterus
CPT/HCPCS: 36415; 76830; 76856; 80053; 81003; 81025; 83690; 85025; 93976; 99284; A9270; Q0162; 81001; 87086

== ENCOUNTER 2019-11-21 13:32 | Emergency (ER) | payer OTHER ==
[2019-11-21 13:38] VITALS: BP 124/76
[2019-11-21] MEDS ORDERED: guaiFENesin/CODEINE 5 ML UDC PO STA (13:44)
[2019-11-21] MEDS ORDERED: IBUPROFEN 800 MG TABLET PO STA (13:44)
--- NOTE | 2019-11-21 13:48 | ED Physician Documentation ---
PD HPI DYSPNEA - Stated complaint Stated Complaint: SOA/COUGH/HERRERA - Chief complaint Chief Complaint: Resp - History obtained from History obtained from: Patient (24-year-old woman with history of asthma presents without a 3-day history of a nonproductive cough, body aches, sore throat and chills without fevers. No sick contacts. No recent travel. No pedal edema or calf pain. No possibility of .) Review of Systems Constitutional: reports: Chills, Myalgias. denies: Fever Ears: denies: Drainage/discharge Nose: denies: Rhinorrhea / runny nose Throat: denies: Sore throat Respiratory: reports: Dyspnea, Cough PD PAST MEDICAL HISTORY - Past Medical History Cardiovascular: None Respiratory: Asthma Endocrine/Autoimmune: None GI: None LUBRICATING SPECIALIST: Other : None HEENT: None Psych: None Musculoskeletal: Other Derm: None - Past Surgical History Past Surgical History: Yes General: Appendectomy /LUBRICATING SPECIALIST: section, Other - Present Medications Home Medications: Ambulatory Orders Medication Instructions Recorded Confirmed Escitalopram Oxalate [Lexapro] 25 mg ORAL DAILY 11/21/19 11/21/19 Ibuprofen [Motrin] 800 mg PO Q8H PRN #30 tablet 11/21/19 cloNIDine [Catapres] 11/21/19 guaiFENesin/CODEINE [Robitussin AC] 5 - 10 ml PO Q6H PRN #120 ml 11/21/19 hydrOXYzine HCL [Hydroxyzine HCl] 10 11/21/19 - Allergies Allergies/Adverse Reactions: Allergies Allergy/AdvReac Type Severity Reaction Status Date / Time acetaminophen Allergy Severe Anaphylaxis Verified 11/21/19 13:38 khan AdvReac Hives Verified 11/21/19 13:38 - Social History Does the pt smoke?: No Smoking Status: Never smoker Does the pt drink ETOH?: No Does the pt have substance abuse?: No - Immunizations Immunizations are current?: Yes - POLST Patient has POLST: No POLST Status: Full Code PD ED PE NORMAL - Vitals Vital signs reviewed: Yes - General General: Alert and oriented X 3, No acute distress - HEENT HEENT: PERRL, EOMI - Neck Neck: Supple, no meningeal sign, No bony TTP - Cardiac Cardiac: RRR, No murmur - Respiratory Respiratory: No respiratory distress, Other (Rhonchorous at the bases, no wheezing, nonlabored.) - Abdomen Abdomen: Non tender - Back Back: No CVA TTP, No spinal TTP - Derm Derm: Normal color, Warm and dry - Extremities Extremities: No edema, No calf tenderness / cord - Neuro Neuro: Alert and oriented X 3, Normal speech - Psych Psych: Normal mood, Normal affect Results - Vitals Vitals: Vital Signs - 24 hr 11/21/19 13:35 Temperature 36.3 C L Heart Rate 74 Respiratory 20 Rate Blood Pressure 124/76 O2 Saturation 97 Oxygen O2 Source [Without Activity] Room air O2 Source Room air - Rads (name of study) 1v chest Radiology: EMP read contemporaneously (NAD) PD MEDICAL DECISION MAKING - ED course ED course: This is a 24-year-old woman presents with a fairly typical viral syndrome. Chest x-ray is clear, steroids are considered but she is not wheezing. Departure - Departure Disposition: Home, Self Care Clinical Impression: Bronchitis Condition: Good Record reviewed to determine appropriate education?: Yes Instructions: ED Bronchitis Asthmatic Prescriptions: guaiFENesin/CODEINE [Robitussin AC] 5 - 10 ml PO Q6H PRN #120 ml PRN Reason: Cough Ibuprofen [Motrin] 800 mg PO Q8H PRN #30 tablet PRN Reason: PAIN &/OR FEVER Comments: Coronavirus testing is pending, you will get a call regarding this. That said Regardless of the results you need to be on home quarantine and follow the CDC guidelines for same which are available at: https://www.cdc.gov/coronavirus/2019-ncov/hcp/kgehllhorto-qy-qldt-patients.html Return if worse.
--- NOTE | 2019-11-21 14:25 | XRAY Report ---
Reason: cough Procedure Date: 11/21/2019 Accession Number: [id number] / [id number] Procedure: XR - Chest 1 View X-Ray CPT Code: 77821 Final Report FULL RESULT: EXAM: CHEST RADIOGRAPHY EXAM DATE: 11/21/2019 02:03 PM. CLINICAL HISTORY: Cough. COMPARISON: CHEST 2 VIEW 07/15/2018 11:20 PM. TECHNIQUE: 1 view. FINDINGS: Lungs/Pleura: No focal opacities evident. No pleural effusion. No pneumothorax. Mediastinum: Within exam limitations, the cardiomediastinal contour is normal. Other: None. IMPRESSION: Normal single view chest. RADIA
== END 2019-11-21 14:36 | disposition home or self-care (01) ==
LOC: ED 13:32
DX: J40 Bronchitis, not specified as acute or chronic (principal)
CPT/HCPCS: 71045; 81599; 99283; 99284; A9270

== ENCOUNTER 2019-12-15 22:33 | Emergency (ER) | payer OTHER ==
[2019-12-15 22:42] VITALS: BP 121/65
[2019-12-15] MEDS ORDERED: IBUPROFEN 800 MG TABLET PO STA (22:45)
--- NOTE | 2019-12-15 22:48 | ED Physician Documentation ---
PD HPI LOWER EXT INJURY - Stated complaint Stated Complaint: RT ANKLE INJ - Chief complaint Chief Complaint: Trauma Ext - History obtained from History obtained from: Patient - History of Present Illness PD HPI LOW EXT INJURY LOCATION: Right, Ankle, Foot Type of injury: Fall Where injury occurred: Home Timing - onset: How many hours ago (2) Timing - duration: Hours (2) Timing - details: Abrupt onset Pain level max: 8 Pain level now: 8 Improved by: Rest, Ice, Immobilization Worsened by: Moving, Palpating Associated symptoms: Swelling. No: Weakness, Numbness, Tingling, Discolored Contributing factors: No: Anticoagulated, Prior ortho surgery, Prosthetic joint, Work related Recently seen: Not recently seen Review of Systems Constitutional: denies: Fever, Chills Cardiac: denies: Chest pain / pressure Respiratory: denies: Cough GI: denies: Vomiting, Diarrhea Skin: denies: Rash Musculoskeletal: denies: Neck pain, Back pain Neurologic: denies: Headache PD PAST MEDICAL HISTORY - Past Medical History Cardiovascular: None Respiratory: Asthma Endocrine/Autoimmune: None GI: None COUNCILOR: Other : None HEENT: None Psych: None Musculoskeletal: Other Derm: None - Past Surgical History Past Surgical History: Yes General: Appendectomy /COUNCILOR: section, Other - Present Medications Home Medications: Ambulatory Orders Medication Instructions Recorded Confirmed Escitalopram Oxalate [Lexapro] 25 mg ORAL DAILY 11/21/19 11/21/19 Ibuprofen [Motrin] 800 mg PO Q8H PRN #30 tablet 11/21/19 cloNIDine [Catapres] 11/21/19 guaiFENesin/CODEINE [Robitussin AC] 5 - 10 ml PO Q6H PRN #120 ml 11/21/19 hydrOXYzine HCL [Hydroxyzine HCl] 10 11/21/19 Ibuprofen [Motrin] 800 mg PO Q8H PRN #30 tablet 12/15/19 - Allergies Allergies/Adverse Reactions: Allergies Allergy/AdvReac Type Severity Reaction Status Date / Time acetaminophen Allergy Severe Anaphylaxis Verified 12/15/19 22:42 khan AdvReac Hives Verified 12/15/19 22:42 - Social History Does the pt smoke?: No Smoking Status: Never smoker Does the pt drink ETOH?: No Does the pt have substance abuse?: No - Immunizations Immunizations are current?: Yes - POLST Patient has POLST: No POLST Status: Full Code PD ED PE NORMAL - Vitals Vital signs reviewed: Yes - General General: Alert and oriented X 3, No acute distress, Well developed/nourished - HEENT HEENT: Moist mucous membranes - Neck Neck: Supple, no meningeal sign - Derm Derm: Warm and dry - Extremities Extremities: Other (Tender to palpation diffusely about the right ankle as well as tender to palpation at the base of the fifth metatarsal. Moderate swelling. Neurovascular intact. No tenderness over the proximal tibia or fibula. Remainder of the examination of the right lower extremity is normal.) - Neuro Neuro: Alert and oriented X 3 - Psych Psych: Normal mood, Normal affect Results - Vitals Vitals: Vital Signs - 24 hr 12/15/19 12/15/19 12/15/19 22:39 22:53 23:10 Temperature 36.2 C L Heart Rate 82 Respiratory 14 16 16 Rate Blood Pressure 121/65 O2 Saturation 99 Oxygen O2 Source [] Room air O2 Source Room air - Rads (name of study) Right ankle x-ray Radiology: Prelim report reviewed, EMP read contemporaneously, See rad report (normal) Right foot x-ray Radiology: Prelim report reviewed, EMP read contemporaneously, See rad report (normal) PD MEDICAL DECISION MAKING - ED course Complexity details: reviewed results, re-evaluated patient, considered differential, d/w patient ED course: Patient with a right ankle sprain. No acute findings on x-ray. Placed on an Aircast for comfort. Given crutches. Will utilize Motrin for home. Patient counseled regarding signs and symptoms for which I believe and urgent re- evaluation would be necessary. Patient with good understanding of and agreement to plan and is comfortable going home at this time This document was made in part using voice recognition software. While efforts are made to proofread this document, sound alike and grammatical errors may occur. Departure - Departure Disposition: 01 Home, Self Care Clinical Impression: Right ankle sprain Qualifiers: Encounter type: initial encounter Involved ligament of ankle: unspecified ligament Qualified Code(s): S93.401A - Sprain of unspecified ligament of right ankle, initial encounter Condition: Good Instructions: ED Sprain Ankle Follow-Up: Anita Reza, [employer] [Primary Care Provider] - Within 1 week Prescriptions: Ibuprofen [Motrin] 800 mg PO Q8H PRN #30 tablet PRN Reason: PAIN &/OR FEVER Comments: Your x-rays do not show any fractures tonight. Follow-up with your doctor for further care. Return if you worsen. You may bear weight as tolerated. Elevate the foot and apply ice when possible. Discharge Date/Time: 12/15/19 23:48
--- NOTE | 2019-12-15 23:24 | XRAY Report ---
Reason: fall, ankle pain Procedure Date: 12/15/2019 Accession Number: [id number] / [id number] Procedure: XR - Ankle 3 View RT CPT Code: Final Report FULL RESULT: EXAMS: RIGHT FOOT AND ANKLE RADIOGRAPHY EXAM DATE: 12/15/2019 11:03 PM. CLINICAL HISTORY: Fall, ankle/foot pain. COMPARISON: None. TECHNIQUE: 3 views each foot and ankle. FINDINGS: Bones: Normal. No fractures or bone lesions in the foot or ankle. Joints: Normal. No effusions. No subluxations in the foot or ankle. The ankle mortise is normally aligned. Soft Tissues: Normal. No soft tissue swelling. IMPRESSION: Negative right foot and ankle radiography. [facility]
--- NOTE | 2019-12-15 23:24 | XRAY Report ---
Reason: fall, R foot pain Procedure Date: 12/15/2019 Accession Number: [id number] / [id number] Procedure: XR - Foot 3 View RT CPT Code: Final Report FULL RESULT: EXAMS: RIGHT FOOT AND ANKLE RADIOGRAPHY EXAM DATE: 12/15/2019 11:03 PM. CLINICAL HISTORY: Fall, ankle/foot pain. COMPARISON: None. TECHNIQUE: 3 views each foot and ankle. FINDINGS: Bones: Normal. No fractures or bone lesions in the foot or ankle. Joints: Normal. No effusions. No subluxations in the foot or ankle. The ankle mortise is normally aligned. Soft Tissues: Normal. No soft tissue swelling. IMPRESSION: Negative right foot and ankle radiography. RADIA
== END 2019-12-15 23:48 | disposition home or self-care (01) ==
LOC: ED 22:33
DX: S93.401A Sprain of unspecified ligament of right ankle, initial encounter (principal); W01.0XXA Fall on same level from slipping, tripping and stumbling without subsequent striking against object, initial encounter; Y93.89 Activity, other specified; Y92.009 Unspecified place in unspecified non-institutional (private) residence as the place of occurrence of the external cause
CPT/HCPCS: 73610; 73630; 99283; 99284; A9270